=== PATIENT | male | born 1940 | race Caucasian/White ===

== ENCOUNTER 2022-03-19 09:31 | Day surgery (SDC) | payer MEDICARE, SELFPAY ==
--- NOTE | 2022-03-09 08:30 | EKG12_ITS ---
Test Reason : PRE OP Blood Pressure : / mmHG Vent. Rate : 067 BPM Atrial Rate : 067 BPM P-R Int : 192 ms QRS Dur : 086 ms QT Int : 406 ms P-R-T Axes : 079 -22 048 degrees QTc Int : 429 ms Normal sinus rhythm with sinus arrhythmia Nonspecific ST and T wave abnormality Abnormal ECG Confirmed by SHRUTI COSBY, RENETTA ([id number]), script editor JOÃO FELIX ([id number]) on 03/09/2022 2:17:12 PM Referred By: Clem Steen Confirmed By:HECTOR BAHENA MD
[2022-03-09 09:22] LABS: Hematocrit 46.7 % (40-54); Hemoglobin 15.8 g/dL (13.0-16.5); Mean Corp Hgb Conc 33.8 g/dL (32-36); Mean Corpuscular Volume 97.5 fL (80-94); Mean Platelet Vol. 10.9 fl (6.2-12.0); Platelet Count 188 K/mm3 (150-450); RBC Distribution Width CV 13.6 % (11.6-14.6); RBC Distribution Width SD 48.6 fl (35.1-43.9); Red Blood Count 4.79 M/mm3 (4.6-6.2); White Blood Count 7.3 K/mm3 (4.4-11.0)
[2022-03-09 09:43] LABS: Anion Gap 7 (5-15); BUN 20 mg/dL (7-18); BUN/Creat Ratio 15.4 RATIO (10-20); Calcium,Total 9.1 mg/dL (8.5-10.1); Chloride 109 mmol/L (98-107); EST Glomerular Filtration Rate 56 mL/min (>60); Est Glom Filt Rate - Afr Amer 68 mL/min (>60); Glucose 113 mg/dL (74-106); Potassium 3.5 mmol/L (3.5-5.1); Sodium Level 144 mmol/L (136-145)
[2022-03-19] VITALS (13 sets, daily range): BP systolic 134–188; BP diastolic 68–92; PULSE 61–91; RESP 16; TEMP 36.4–36.7; O2SAT 89–98; BMI 34.8
[2022-03-19] MEDS: Lactated Ringers 1,000 ML 15 ML IV ×2 (10:18→13:20)
[2022-03-19] MEDS: Cefazolin 2 GM in 0.9% Normal Saline 100 ML IV (11:27)
--- NOTE | 2022-03-19 11:27 | PCM.HP.BLA ---
History and Physical Date of Admission: 03/19/22 Intake Vital Signs ? 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 Clem Steen MD) Heart attack Surgical History?(Updated 01/31/22 @ 08:57 by Chanda Olvera) H/O heart artery stent S/P appendectomy S/P hip replacement Social History?(Updated 01/31/22 @ 08:58 by Chanda Olvera) Smoking Status:? Never smoker alcohol intake:? never substance use type:? does not use HPI HPI HPI: TAYLOR RAMIREZ, is a 81 M who presents to the office today for umbilical hernia.? The patient reports he has had this umbilical hernia for several years and it is growing and becoming more uncomfortable.? The patient does not have any nausea or vomiting.? There is no radiation of the pain.? No fevers or chills. ROS General General: No weight change, appetite, fatigue, colon cancer, breast cancer or weakness HEENT HEENT: No difficulty swallowing, eye injury, eye surgery, swollen glands or hoarseness Endo Endocrine: No thyroid disease, diabetes mellitus, thyroid cancer, Hair loss, heat intolerance or cold intolerance Skin Skin: No rash or changing moles Breast Breast: No left breast lump, right breast lump, nipple discharge, breast pain, abnormal mammogram, abnormal US or breast enlargement Musc Musculoskeletal: No back problems, arthritis, rheumatoid arthritis, gout or joint pain Cardio Cardiovascular: Yes heart disease, high blood pressure, heart attack and heart stent; No murmur, pacemaker, atrial fibrillation, palpitations, shortness of breat with exertion or chest pain Psych Psychiatric: No depression, anxiety or hearing voices Resp Respiratory: No shortness of breath, No sleep apnea, No cough, No COPD, No asthma, No emphysema and No wheezing Gastro Gastrointestinal: No abdominal pain, No nausea or vomiting, No diarrhea, No constipation, No blood in stool, No acid reflux, No hemorrhoids, No ulcers, No gallbladder problem and No black,tarry stools Jose Martin Hematologic: No blood thinners, No blood disorders, No bleeding, No anemia and No blood clots Neuro Neurologic: No system reviewed and no additional complaints, except as documented, No as per HPI, No abnormal gait, No abnormal hearing, No abnormal movements, No abnormal speech, No behavioral changes, No burning sensations, No confusion, No convulsions, No disequilibrium, No dizziness, No localized weakness, No frequent falls, No headache(s), No lack of coordination, No loss of vision, No memory loss, No numbness, No other visual disturbances, No radicular pain, No restless legs, No sensory deficit, No syncope, No tingling, No tremor(s), No weakness and No other Exam Const General: cooperative Orientation: alert and oriented x3 HENAZ Head: normal to inspection Neck Neck: normal visual inspection and full ROM Chest Chest palpation & inspection: normal inspection of the chest Resp Effort & Inspection: normal respiratory effort Auscultation: clear to auscultation bilaterally Cardio Rate: regular rate Rhythm: regular rhythm GI Inspection: non-distended Palpation: soft, hernia umbilical and nontender Skin General: no rashes or lesions noted Neuro General: patient alert and patient oriented x3 Extrem General: full ROM Psych Appearance: grossly normal Mental Status: mental status grossly normal Assessment and Plan Assessment and Plan (1) Umbilical hernia: ?Status:?Acute ?Plan: Patient has a [place] umbilical hernia.? I discussed open and laparoscopic repair with him in detail.? Patient opted for laparoscopic repair and I discussed robotic assisted laparoscopic umbilical hernia repair with mesh.? I discussed the procedure in detail as well as the risks including but not limited to bleeding, infection, injury to underlying organs, mesh placement, recurrence of hernia.? Patient understands the risks and postoperative course and is willing to proceed.? Patient will hold his blood thinner prior to the procedure. Clem Steen MD Pager: [facility] [address] [place] [address], [address] [place] [address] Office: I have re-examined the patient. There are no clinical changes since date of exam.
[2022-03-19] MEDS: Bupivacaine 0.25% 30 ML Vial (12:45)
--- NOTE | 2022-03-19 13:04 | OP.PCM_ITS ---
Report of Operation Date of Procedure: 03/19/22 Pre-Operative Diagnosis: Incarcerated umbilical hernia Post-Operative Diagnosis: Incarcerated umbilical hernia Surgery/Procedure Performed:: Robotic assisted laparoscopic incarcerated umbilical hernia repair with mesh Description of Procedure: Patient was brought back to the operating room and general anesthesia was induced. The abdomen was prepped and draped in usual sterile fashion. An area of the left upper quadrant was then incised and the fascia was grasped and elevated and Veress needle was placed into the abdomen. A drop test was performed. Next the abdomen was insufflated 15 mmHg and the Veress needle was removed and a port was placed. Camera was placed into the abdomen was inspected and there were no injuries from entry. Next under direct visualization an 8 mm port was placed in the lateral left abdomen as well as left lower quadrant. The robot was then docked. Jessica repair was attempted but the peritoneum was too thin and kept having defects. The peritoneum was reduced from the hernia defect and the hernia sac was fully reduced with the assistance of electrocautery scissors. Next the defect was closed with a running #1 strata fix suture. Next a 10 cm x [address] mesh was rolled and placed into the abdomen and sutured to the defect using V-Loc suture. 2-0V lock suture was then used to circumferentially suture the mesh to the anterior abdominal wall. After the mesh was circumferentially sutured to the abdominal wall the abdomen was inspected and there appeared to be no injury and good coverage of the hernia defect circumferentially. The abdomen was allowed to desufflate and the robot was undocked and the ports were removed. Next the skin incisions were injected with local anesthetic and closed with interrupted 4-0 Monocryl suture. Steri- Strips were applied. Bandages were applied. Cotton balls and dressing were placed over the umbilicus to keep pressure on the umbilical stalk. Patient was awoken and taken to PACU in stable condition. Grafts/Implants Used: 10 x [address] mesh Admit VTE Documentation VTE Mechan Device Prophylaxis: SCD's
--- NOTE | 2022-03-19 13:08 | DCINST_ITS ---
Discharge Instructions Procedure Hernia Diet Discharge Diet: Light diet - advance as tolerated Activity Discharge Activity: May Not Drive (for 2-3 days or while taking narcotic pain meds.) and May Shower (with the bandage in place 1-2 days after surgery.) Lifting Restrictions: 20 pounds for 4 weeks. Additional Activity Instructions:: Climbing stairs is fine, walking is encouraged. Sitting in bed may be uncomfortable. Sitting up using your lateral muscles (sitting up sideways) is usually more comfortable. Do not drive, work heavy equipment of sign legal documents for 24 hours. Pain medications may cause nausea, you should typically eat light foods as you take your pain medications. Pain medications may also cause constipation. If you have difficulty with this, discuss with your doctor. Umbilical dressing is in place to keep pressure on the umbilicus. There is no incision there and it may be removed in 2 to 3 days. Dressing / Incision Call your doctor if your incision/area has: Continuous Slow Oozing, Sudden Increased Bleeding, Increased Pain/ Swelling, Increased Redness and Foul Smelling Discharge Call your doctor if you observe: Fever of 101 or Higher Suture Line Care: Avoid Pulling/Pushing and Avoid Pinching/Bending Remove Dressing in: 2 days (Remove clear bandages in 2 days, remove Steri-Strips in 7 to 10 days.) Cleanse incision/area with: Soap & Water Follow Up Care Please Follow Up With: Clem Steen MD When: Please call to schedule 2 week follow up appointment. [phone] Test Results: Test results from this visit will be discussed in further detail at your follow- up appointment, if applicable. Discharge Plan Admission Attending Provider: Clem Steen Primary Care Provider: JEANETH OFX Consulting Providers: Chino Macias Instructions Additional Instructions / Restrictions: Resume aspirin tomorrow Discharge Orders/Prescriptions Prescriptions: New oxycodone-acetaminophen [Percocet] 5-325 mg tablet 1 tab PO Q4H PRN (Reason: pain) 5 Days Qty: 20 0RF No Action atorvastatin 20 mg tablet 20 mg PO DAILY lisinopril 10 mg tablet 10 mg PO DAILY allopurinol 100 mg tablet 100 mg PO DAILY PreserVision AREDS [id number] capsule 1 cap PO BID aspirin [Adult Aspirin Regimen] 81 mg tablet,delayed release (DR/EC) 81 mg PO DAILY probenecid-colchicine 500-0.5 mg tablet 1 tab PO BID Referrals / Follow Up: JEANETH FOX [Other] Disposition Disposition (needs filled in before D/C Order can be placed): Home, Self Care
== END 2022-03-19 16:19 | disposition home or self-care (01) ==
LOC: SDC 09:35 → AC 09:39
PROVIDERS: Anesthesiology; Referring Provider Surgery; Visit Provider Surgery
PROC: (CPT 49653; principal; 2022-03-19 11:15)
DX: K42.0 Umbilical hernia with obstruction, without gangrene (principal); I25.2 Old myocardial infarction; Z95.5 Presence of coronary angioplasty implant and graft; Z79.899 Other long term (current) drug therapy; E78.00 Pure hypercholesterolemia, unspecified; I10 Essential (primary) hypertension; M10.9 Gout, unspecified
CPT/HCPCS: 49653; S2900; 00750; 36415; 80048; 85027; 93005; J7120; C1781; J2405

== ENCOUNTER → 2022-11-21 | Outpatient (CLI) | payer MEDICARE, SELFPAY ==
--- NOTE | 2022-11-21 17:47 | STRESSREP_ITS ---
Stress Test Report Pharmacologic myocardial perfusion stress test. 82-year-old man with a history of coronary artery disease Resting EKG demonstrates sinus rhythm with a rate of 70 bpm. Resting blood pressure 122/78. 0.4 mg of regadenoson was infused per usual protocol followed by rapid intravenous saline flush injection. Continuous EKG monitoring was per formed. The maximum heart rate was 71 bpm which was 58% of max impacted heart rate the maximum workload was 1 metabolic equivalent. At rest there were no ST or T wave changes noted to suggest ischemia and at peak infusion nonspecific ST changes were noted which did not meet the criteria for ischemia. No clinical angina is noted. The final blood pressure was 124/78 mmHg. Myocardial perfusion protocol. 14.8 mCi of technetium 99m sestamibi was injected at rest. 0.4 mg of regadenoson was infused per usual protocol. At peak infusion 44.8 mCi of technetium 99m sestamibi was injected stress images were obtained stress and rest images were reconstructed and compared in the short axis vertical long and horizontal long axis. Gated images were also obtained. Perfusion SPECT analysis: Review of the stress images demonstrate normal uptake of tracer noted in all areas of the myocardium except for the inferior wall with a defect noted from the base to the apex. The resting images similar demonstrated a persistent defect noted in the base of the inferior wall but in the mid to apical region there was improvement suggesting inferior ischemia in this distribution. Gated SPECT analysis: The gated ejection fraction is 57%. Conclusion: Abnormal pharmacologic myocardial perfusion stress test. Basal inferior infarct and mid and apical inferior ischemia Preserved ejection fraction.
== END | disposition home or self-care (01) ==
PROVIDERS: Referring Provider Nurse Practitioner Gerontology; Visit Provider Nurse Practitioner Gerontology
DX: I25.10 Atherosclerotic heart disease of native coronary artery without angina pectoris (principal); Z95.5 Presence of coronary angioplasty implant and graft
CPT/HCPCS: 78452; 93017; A9500; J2785

== ENCOUNTER 2022-12-10 06:36 | Day surgery (SDC) | payer MEDICARE, SELFPAY ==
--- NOTE | 2022-11-28 14:16 | PCM.HP.BLA ---
History and Physical Date of Admission: 12/10/22 This is an 82-year-old white male who presents today for a cardiac catheterization. He has a past cardiovascular history which includes underlying CAD, and MT, PCI (details unknown), hyperlipidemia, hypertension, and macular degeneration.? He has previously been followed through [facility]. 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 He had a previous ECG obtained from 02-03-2016.? At that time he had sinus rhythm with PACs and an inferior MT pattern reported. He had a repeat ECG on 03/29/2022 that demonstrated sinus rhythm with an inferior MT pattern of indeterminate age cannot be excluded. He had a transthoracic echocardiogram performed on 02-02-2016 through his hospital system through the [facility].? According to the report his left ventricle was thought to have a normal systolic function with an LVEF reported at 51% with mild concentric LVH.? The left atrium was mildly dilated.? There was trace MR.? There was trace TR. It appears that he also underwent a pharmacologic stress nuclear imaging study on 10-27-2015 through hospital system.? According to the report he had findings compatible with mild inferior wall darren-infarct myocardial ischemia with a moderate myocardial infarction by perfusion imaging with an LVEF of 40%.? There was a comment that compared to a previous exercise myocardial perfusion stress test of May 14, 2008 there was no significant change. 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 According to a preoperative note from 11-01-2015 there was a comment that his myocardial perfusion studies showed no change compared to a previous study done approximately 3 years prior.? At that time they recommended no further evaluation and care.? He proceeded with hip replacement surgery.? He states he went through surgery without any obvious cardiovascular complications. From a cardiac standpoint, the patient is doing well. He denies any palpitations, chest pain, pressure or heaviness. He denies SOB, Orthopnea, and PND. He does not have bleeding issues; no blood in urine, stool or nosebleeds. He denies any decrease in energy level, myalgias, or claudication.? He does have an occasional joint pain/arthritis. He does not have edema, or sudden weight gain. He denies dizziness, lightheadedness, syncopal or near syncopal episodes, and headaches. Intake Vital Signs See EMR Allergies See EMR Medications See EMR [facility] Medical History?(Reviewed 10/22/22 @ 09:07 by Kamla Albarado MORTGAGE FIELD INSPECTOR, MORTGAGE FIELD INSPECTOR-C) Arthritis Atherosclerotic heart disease of [place] coronary artery without angina pectoris Cardiology follow-up encounter Essential hypertension Gout Heart attack High cholesterol History of left heart catheterization (LHC) (~2000) History of stress test Hypertension Hypertension Injury of head and neck Legally blind Non-smoker Old myocardial infarction Pure hypercholesterolemia Surgical History?(Reviewed 10/22/22 @ 09:07 by Kamla Albarado MORTGAGE FIELD INSPECTOR, MORTGAGE FIELD INSPECTOR-C) H/O heart artery stent History of cardiac catheterization Hx of umbilical hernia repair S/P appendectomy S/P hip replacement Social History? Smoking Status:? Never smoker alcohol intake:? never substance use type:? does not use caffeine:? Yes Type: coffee Number of servings: 2 and tea ROS Const Const: Negative for fatigue, weakness, fever(s), headache(s), chills, frequent falls, weight gain or weight loss Eyes Eyes: Negative for blind spots, loss of peripheral vision, transient loss of vision, blurry vision, change in vision, double vision, floaters or tunnel vision ENT ENT: Negative for headache(s), dizziness, Nosebleed/epistaxis, balance problems or neck pain Cardio Chest Pain: No Palpitations: No Edema: None Muscle aches with walking: None Resp Respiratory: Negative for SOB with activity, SOB at rest or SOB orthopnea\SOB lying down GI GI: Negative nausea, vomiting, heartburn, bloating, vomiting blood/hematemesis, bright, red blood in stools or black,tarry stools Musc Musc: Positive for joint pain; Negative for muscle aches/ myalgia, muscle weakness or balance problems Neuro Neuro: Negative for dizziness, lightheadedness, near syncope, syncope, orthostatic symptoms, frequent falls, headache(s), weakness, blurry vision or double vision Jose Martin Hematologic/Lymphatic: Negative for easy bleeding or easy bruising Endo Endo: Negative for fatigue Cardiology Exam Const Appearance: cooperative, healthy appearing, comfortable, no acute distress, well developed and well groomed Nutritional Appearance: obese Orientation: alert, awake and oriented x3 Head Head: normal to inspection, normocephalic and atraumatic Ears: hearing grossly normal bilaterally Nose: external nose normal Face and Sinus: face symmetric Eyes Eyelids: eyelids normal Conjunctivae: conjunctivae normal Pupils: PERRL EOM: EOM intact bilaterally Patient is legally blind due to macular degeneration Neck Neck: normal visual inspection and full ROM Carotids: normal carotid upstroke Chest Chest inspection: normal inspection of the chest, symmetric chest movement and normal respiratory effort Auscultation: Bilateral: Clear to Auscultation Cardio Palpation: normal PMI Rate: regular rate Rhythm: regular rhythm Heart sounds: S1 normal and S2 normal GI GI: normal to inspection, soft and obese Skin Skin: no rashes or lesions noted Extremities Pulses: Normal: Right Radial Pulse and Left Radial Pulse Lower Extremity Edema: None: Bilateral Psych Psychological: normal affect Supplemental Info Supplemental Information Stress test 11/21/2022: Pharmacologic myocardial perfusion stress test. 82-year-old man with a history of coronary artery disease Resting EKG demonstrates sinus rhythm with a rate of 70 bpm. Resting blood pressure 122/78. 0.4 mg of regadenoson was infused per usual protocol followed by rapid intravenous saline flush injection. Continuous EKG monitoring was performed. The maximum heart rate was 71 bpm which was 58% of max impacted heart rate the maximum workload was 1 metabolic equivalent. At rest there were no ST or T wave changes noted to suggest ischemia and at peak infusion nonspecific ST changes were noted which did not meet the criteria for ischemia. No clinical angina is noted. The final blood pressure was 124/78 mmHg. Myocardial perfusion protocol. 14.8 mCi of technetium 99m sestamibi was injected at rest. 0.4 mg of regadenoson was infused per usual protocol. At peak infusion 44.8 mCi of technetium 99m sestamibi was injected stress images were obtained stress and rest images were reconstructed and compared in the short axis vertical long and horizontal long axis. Gated images were also obtained. Perfusion SPECT analysis: Review of the stress images demonstrate normal uptake of tracer noted in all areas of the myocardium except for the inferior wall with a defect noted from the base to the apex. The resting images similar demonstrated a persistent defect noted in the base of the inferior wall but in the mid to apical region there was improvement suggesting inferior ischemia in this distribution. Gated SPECT analysis: The gated ejection fraction is 57%. Conclusion: Abnormal pharmacologic myocardial perfusion stress test. Basal inferior infarct and mid and apical inferior ischemia Preserved ejection fraction. Assessment and Plan Assessment and Plan (1) H/O heart artery stent: ?Status:?Acute ?Comment: X5 ?Plan: Patient has a history of coronary artery disease with stent placement in 2000. He underwent a stress test on 11/21/2022 which demonstrated an abnormal pharmacologic myocardial perfusion stress test, with basal inferior infarct and mid and apical inferior ischemia. He will proceed with a cardiac catheterization to further assess this. Depending on results, furhter recommendations will be made. (2) Pure hypercholesterolemia: ?Status:?Acute ?Plan: Patient has a history of hypercholesterolemia. His PCP monitors this. He will continue atorvastatin 20mg daily, along with aggressive risk factor and lifestyle modifications. (3) Essential hypertension: ?Status:?Acute ?Plan: Patient has a history of hypertension. He will continue with his current medical therapy, along with monitoring his blood pressures at home.
--- NOTE | 2022-11-30 12:30 | RAD_ITS ---
STUDY: X-RAY CHEST REASON FOR EXAM: Male, 82 years old. Preop for cardiac catheterization TECHNIQUE: PA and lateral views of the chest. COMPARISON: None. FINDINGS: The lungs are clear and expanded. There is no demonstrated pleural abnormality. Normal size heart. Normal mediastinum and wendi. Normal visualized pulmonary arteries. Normal visualized aortic arch and descending thoracic aorta. There are diffuse degenerative changes of the visualized thoracic spine. Normal visualized ribs, clavicles, and shoulders. There is no demonstrated abnormality of the visualized soft tissue structures of the upper abdomen. RAD/Chest PA and Lateral IMPRESSION: No acute pulmonary process Electronically Signed: Jermain Ellison MD at 10:50 EDT ,
[2022-11-30 13:23] LABS: Absolute Lymphocyte Count 1.57 X10^3/uL (0.83-4.51); Absolute Neutrophil Count 5.6 X10^3/uL (2.0-7.7); Basophil# 0.03 X10^3/uL; Basophil% 0.4 % (0-1); Eosinophil# 0.14 X10^3/uL; Eosinophils% 1.7 % (0-5); Hematocrit 51.2 % (40-54); Hemoglobin 17.4 g/dL (13.0-16.5); Lymphocyte # 1.57 X10^3/ul (0.83-4.51); Lymphocyte % 19.3 % (19-41); Mean Corpuscular Volume 97.2 fL (80-94); Mean Platelet Vol. 10.2 fl (6.2-12.0); Monocyte# 0.73 X10^3/uL; NRBC Flagged by Analyzer 0 % (0-5); Neutrophil # 5.62 X10^3/uL (2.7-7.7); Neutrophil % 69.2 % (47-70); Platelet Count 217 K/mm3 (150-450); RBC Distribution Width CV 13.5 % (11.6-14.6); RBC Distribution Width SD 48.7 fl (35.1-43.9); Red Blood Count 5.27 M/mm3 (4.6-6.2); White Blood Count 8.1 K/mm3 (4.4-11.0)
[2022-11-30 14:02] LABS: Anion Gap 9 (5-15); BUN 16 mg/dL (7-18); Calcium,Total 9.4 mg/dL (8.5-10.1); Chloride 108 mmol/L (98-107); Creatinine, Serum 1.33 mg/dL (0.70-1.30); EST Glomerular Filtration Rate 55 mL/min (>60); Est Glom Filt Rate - Afr Amer 66 mL/min (>60); Glucose 110 mg/dL (74-106); Potassium 4.1 mmol/L (3.5-5.1); Sodium Level 143 mmol/L (136-145)
[2022-12-07 09:27] VITALS: BMI 37.0
--- NOTE | 2022-12-10 08:24 | CL.D_ITS ---
Patient Name: TAYLOR RAMIREZ Study Date: 12/10/2022 Performing: Parminder Perez MD Ht: 64 inches 162.56 cm : 1940 Wt: 216.01 lbs 97.98 kg Age: 82 Gender: male BSA: 2.02 PROCEDURE(S) PERFORMED [id number])[facility] CLINICAL PROFILE AND INDICATIONS Indications: Suspected CAD Heart Failure: None Stress/Imaging Date: 11/21/22Stress Test with SPECT MPI: Positive Intermediate Risk CAD Presentations: No Sxs, no angina. CONCLUSIONS Coronary artery disease previously placed stent in the LAD is patent with mild disease noted in this vessel, left circumflex artery, and ramus intermedius. Totally occluded right coronary artery with [id number] collaterals. RECOMMENDATIONS Medical therapy. Assess left ventricular function via echocardiogram. DESCRIPTION OF PROCEDURE The patient arrived to the procedure lab. The risks and benefits of the procedure as well as a full description of our services here and current unavailability of surgical backup were fully explained to the patient and/or their significant other prior to the catheterization. The Timeout was completed, verifying the correct patient and procedure. The patient's procedural site was prepped and draped in the usual fashion. Local anesthetic was given subcutaneously to right radial region with Lidocaine 2%. Using a modified Seldinger technique, arterial access was obtained via the right radial artery, a 6Fr sheath was inserted. Left Coronary Artery selective angiography was performed in multiple views using a 5 Fr. 4.0 Ada catheter. Right Coronary Artery selective angiography was then performed in multiple views using a 5 Fr. 4.0 Ada catheter.The arterial sheath was pulled and a TR Band was applied for hemostasis CORONARY ANGIOGRAPHY DOMINANCE: Right Dominant LEFT HEART ASSESSMENT Left Ventricular Ejection Fraction: Not assessed LEFT MAIN: Mild calcification, No significant disease noted LEFT ANTERIOR DESCENDING ARTERY: Previously placed stent is patent with minimal in-stent stenosis. First diagonal with mild disease and mild diffuse disease in the left anterior descending artery. CIRCUMFLEX ARTERY: Moderate luminal irregularities up to 50% RAMUS: Moderate luminal irregularities up to 50% RIGHT CORONARY ARTERY: is occluded COLLATERAL FLOW: Collateral flow from Left to Right COMPLICATIONS No Complications PROCEDURE MEDICATIONS Fentanyl 50 mcg IV Versed 1 mg IV Baby Aspirin (81mg) 1 Tabs PO @ 12/10/2022 07:40:11 Heparin given IA 12/10/2022 08:00:47 Verapamil 2.5mg, Ntg 100mcgs, 3000 units of Heparin given IA 12/10/2022 08:00:47 SUMMARY OF HEMODYNAMIC DATA Time AIR REST ECG 07:04:58 ECG 07:49:23 AO 103/60 (79) SA 08:05:04 Signed By Parminder Perez MD On 12/10/2022 08:23:38 Parminder Perez MD
== END 2022-12-10 10:20 | disposition home or self-care (01) ==
LOC: CLSP 06:39
PROVIDERS: Nurse Practitioner Gerontology; Referring Provider Internal Medicine Cardiovascular Disease; Visit Provider Internal Medicine Cardiovascular Disease
DX: I25.10 Atherosclerotic heart disease of native coronary artery without angina pectoris (principal); I10 Essential (primary) hypertension; E78.00 Pure hypercholesterolemia, unspecified; Z95.5 Presence of coronary angioplasty implant and graft; I25.2 Old myocardial infarction
CPT/HCPCS: 36415; 71046; 80048; 85025; 93454; 99152; 99153; J7040; C1769; C1894; Q9967

== ENCOUNTER → 2022-12-19 | Outpatient (CLI) | payer MEDICARE, SELFPAY ==
--- NOTE | 2022-12-19 14:00 | ECHOD_ITS ---
Reason For Study: CAD/ASHD Procedure This was a 2D Doppler, Color Flow transthoracic echocardiogram. Exam performed in department. Left Ventricle Normal LV size. Left ventricular systolic function is lower limits of normal. The estimated ejection fraction is 50 %. Mild segmental systolic dysfunction (see wall motion). Stage 1 diastolic dysfunction. Mid-Inferior: Hypokinetic. Infero-Basal: Akinetic. Right Ventricle Normal RV size. Normal systolic function. Atria Normal left atrium. Normal right atrium. Mitral Valve Normal mitral valve. Tricuspid Valve Normal tricuspid valve. Aortic Valve Trisinus/trileaflet aortic valve. Pulmonic Valve The pulmonic valve is not well visualized. Great Vessels Normal aortic root. The pulmonary artery is normal size. Inferior vena cava collapse with respiration. Pericardium/Pleural No pericardial effusion. MMode/2D Measurements & Calculations LVIDd: 5.3 cm IVSd: 1.2 cm Ao root diam: 3.9 cm LVIDs: 3.9 cm LVPWd: 1.1 cm FS: 27.5 % LAV(MOD-bp): 49.3 ml LVAd ap4: 25.2 cm2 SV(MOD-sp4): 43.7 ml LAV(MOD-bp) Indexed: 24.5 ml/m2 LVLd ap4: 7.3 cm LAV(MOD-sp2): 60.1 ml EDV(MOD-sp4): 73.0 ml LAV(MOD-sp4): 38.1 ml EDV(sp4-el): 73.9 ml LVAs ap4: 14.0 cm2 LVLs ap4: 6.4 cm ESV(MOD-sp4): 29.3 ml ESV(sp4-el): 26.1 ml EF(MOD-sp4): 59.9 % EF(sp4-el): 64.7 % SV(sp4-el): 47.8 ml LA A4 area: 15.7 cm2 LA dimension(2D): 3.7 cm RA A4 area: 12.5 cm2 Time Measurements MV dec time: 0.29 sec Doppler Measurements & Calculations MV E max yinka: 38.8 cm/sec Lat Peak E' Yinka: 6.2 cm/sec Med Peak E' Yinka: 3.0 cm/sec MV A max yinka: 76.9 cm/sec E/E' lat: 6.3 E/E' med: 13.0 MV E/A: 0.50 MV V2 max: 72.9 cm/sec Ao V2 max: 104.7 cm/sec MV max P.1 mmHg MV dec slope: 138.1 cm/sec2 Ao max P.4 mmHg MV V2 mean: 38.9 cm/sec Ao V2 mean: 73.3 cm/sec MV mean P.71 mmHg Ao mean P.5 mmHg MV V2 VTI: 17.9 cm Ao V2 VTI: 23.2 cm AV (velocity ratio): 0.72 LV V1 max: 81.0 cm/sec PA V2 max: 107.9 cm/sec LV V1 max P.6 mmHg PA V2 mean: 67.9 cm/sec LV V1 mean P.4 mmHg LV V1 mean: 56.4 cm/sec LV V1 VTI: 16.8 cm ECHO/Echo Complete Interpretation Summary Normal LV size. Left ventricular systolic function is lower limits of normal. The estimated ejection fraction is 50 %. Mild segmental systolic dysfunction (see wall motion). Stage 1 diastolic dysfunction. Ordering Physician: Parminder Perez Referring Physician: Parminder Perez Performed By: Indigo Moreno RCS
== END | disposition home or self-care (01) ==
LOC: CVS 13:58
PROVIDERS: Referring Provider Internal Medicine Cardiovascular Disease; Visit Provider Internal Medicine Cardiovascular Disease
DX: R94.39 Abnormal result of other cardiovascular function study (principal); I25.10 Atherosclerotic heart disease of native coronary artery without angina pectoris
CPT/HCPCS: 93306

== ENCOUNTER → 2024-10-01 | Outpatient (CLI) | payer MEDICARE, SELFPAY ==
[2024-10-01 16:15] LABS: Absolute Lymphocyte Count 2.07 X10^3/uL (0.83-4.51); Basophil# 0.06 X10^3/uL; Basophil% 0.5 % (0-1); Eosinophil# 0.16 X10^3/uL; Eosinophils% 1.4 % (0-5); Hematocrit 47.1 % (40-54); Hemoglobin 16.7 g/dL (13.0-16.5); Lymphocyte # 2.07 X10^3/ul (0.83-4.51); Lymphocyte % 18.1 % (19-41); Mean Corp Hgb Conc 35.5 g/dL (32-36); Mean Corpuscular Hgb 33.4 pg (27.0-32.0); Mean Corpuscular Volume 94.2 fL (80-94); Mean Platelet Vol. 10.2 fl (6.2-12.0); Monocyte# 1.06 X10^3/uL; Monocyte% 9.3 % (0-10); NRBC Flagged by Analyzer 0 % (0-5); Neutrophil # 7.98 X10^3/uL (2.7-7.7); Neutrophil % 69.9 % (47-70); Platelet Count 243 K/mm3 (150-450); RBC Distribution Width CV 13.4 % (11.6-14.6); RBC Distribution Width SD 46.6 fl (35.1-43.9); White Blood Count 11.4 K/mm3 (4.4-11.0)
[2024-10-01 20:05] LABS: Anion Gap 15 (5-15); BUN 16 mg/dL (4-19); Calcium,Total 9.3 mg/dL (7.6-11.0); Carbon Dioxide 22.5 mmol/L (21.0-32.0); Chloride 106 mmol/L (98-108); Creatinine, Serum 1.25 mg/dL (0.70-1.20); EST Glomerular Filtration Rate 57 (>60); Glucose 98 mg/dL (70-99); Potassium 3.6 mmol/L (3.3-5.1); Sodium Level 143 mmol/L (133-145)
== END | disposition home or self-care (01) ==
LOC: LAB 15:49
PROVIDERS: Referring Provider Internal Medicine Cardiovascular Disease; Visit Provider Internal Medicine Cardiovascular Disease
DX: I25.10 Atherosclerotic heart disease of native coronary artery without angina pectoris (principal); I10 Essential (primary) hypertension; Z95.5 Presence of coronary angioplasty implant and graft
CPT/HCPCS: 36415; 80048; 85025

== ENCOUNTER → 2025-02-24 | Outpatient (CLI) | payer MEDICARE, SELFPAY ==
--- OUTSIDE RECORDS SUMMARY | 2025-02-24 06:43 | XMS RPT_ITS | CCD ---
Author Organization [facility] CliniSynj Care Team Providers Care Powder Core Tester Name Role Phone Ham Soria Unavailable Unavailable Ham Soria Unavailable Unavailable No Doctor Assigned, Nodr Unavailable Unavail able Monica Buckner Primary Care Provider Kaitlynnsdtheron seymour [place], [place] Unavailable Unavailable Unavailable Joshua COSBY [place] Primary Care Provider [phone] ZAK BUNN Referring Unavailable [place], [place] Primary Care Unavailable [place] Primary Care Unavailable ZAK BUNN Admitting Unavailable ZAK BUNN Attending Unavailable Joshua COSBY [facility] Primary Care Provider Dr. Clem Steen Attending Provider [phone] Dr. Ankit Kinney Attending Provider [place], [place] Primary Care Provider Unavailesther batista [place] Referring Provider Unavailable Dr. Clem Steen Referring Provider [phone] Dr. Clem Steen Other Provider Dr. Chino Macias Other Provider [place] Primary Care Provider [facility] Doctor, Out of Primary Care Provider Marvin seyomur [facility] Doctor, Out of Referring Provider Unavailab Morales CONTINUOUS DRIER HELPER, CONTINUOUS DRIER HELPER-C Kamla Attending Provider Per CONTINUOUS DRIER HELPER, CONTINUOUS DRIER HELPER-C Kamla Referring Provider Per CONTINUOUS DRIER HELPER, CONTINUOUS DRIER HELPER-C Kamla Other Provider [phone] [place], [place] Primary Care Provider Dr. Parminder Perez Attending Provider Dr. Parminder Perez Other Provider [place], [place] Primary Care Unavailable DEANNA MEJIAS Referring UnavailJEANETH Mcintosh Primary Care Unavailable DEANNA MEJIAS Referring Unavailab Wendy COSBY, Jeaneth Javier Primary Care Provider Deanna Mejias NP Unavailable Joshua COSBY Jeaneth Javier Unavailable Joshua COSBY Jeaneth Primary Care Provider [facility] Doctor, Out of Primary Care Provider Marvin seymour [facility] Doctor, Out of Referring Provider Unavailab Nolan COSBY, Dr. Zurita Attending Provider JEANETH LEWIS Primary Care Provider Dr. Parminder Perez MD Referring Provider [phone] JEANETH LEWIS Attending Unavailable DEANNA MEJIAS Attending Unavailable DEANNA MEJIAS Attending Unavailable Frankie Cr MD Attending Provider Frankie Cr Attending [facility] Unavailable Parminder Perez Attending Unavailable Parminder Perez Referring Unavailable Frankie Cr Referring [place], [place] Primary Care Unavailable Frankie Cr Attending Unavailable [facility] Doctor, Out of Primary Care Unavailable [facility] Doctor, Out of Referring Unavailable Parminder Perez Attending Unavailable Allergies Allergy Classification Reported Allergen(s) Allergy Type Date of Onset Reaction(s) Facility POISON RAJ EXTRACT (2 sources) POISON RAJ EXTRACT Drug Allergy 1 Hives, Itching, Swelling [facility] (1 source) No Known Medication Allergies; Translations: [No Known Medication Allergies] Propensity to adverse reactions to drug (disorder) [facility] (9 sources) POISON RAJ EXTRACT Drug Allergy 1 Hives, Itching, Swelling [facility] Medications Current Medications Medication Drug Class(es) Dates Sig (Normalized) Sig (Original) Acetaminophen / HYDROcodone (9 sources) Opioid Agonist Start: 01-03-2021 End: 01-03-2021 HYDROcodone-acetam inophen (NORCO) 5-325 MG per tablet 1 tablet Start: 01-02-2021 HYDROcodone-ac etaminophen (NORCO) 5-325 MG per tablet Take by mouth. 0 01/02/2021 Active Start: 01-02-2021 take 1 tablet by bethel th every six hours HYDROcodone-Acetaminophen 5-325 MG Oral Tablet TAKE 1 TABLET Every 6 hours PRN pain Quantity: 20 Refills: 0 Ordered: 02-Jan-2021 Sylvia Campa PA-C Start : 02-Jan-2021 Active aspirin 81 mg delayed release oral tablet (17 sources) Platelet Aggregation Inhibitor, Nonsteroidal Anti-inflammatory Drug Start: 01-31-2022 take 1 tablet by mouth once daily Aspirin (Adult Aspirin Regimen) 81 mg tablet,delayed release (DR/EC) Active 81 mg PO DAILY January 31, 2022 12:00am Start: 11-10-2015 End: 02-07-2022 take 1 tablet by mouth twice daily aspirin, enteric coated (ASPIRIN, ENTERIC COATED) 325 mg EC tablet Take 1 tablet by mouth twice daily. 82 tablet 0 11/10/2015 02/07/2022 Discontinued Comment on above: Take 81 mg by mouth once daily. Take 1 tablet by bethel th twice daily. atorvastatin 20 mg oral tablet (18 sources) HMG-CoA Reductase Inhibitor Start: 2 take 1 tablet by mouth once daily Atorvastatin 20 mg tablet Active 20 mg PO DAILY January 31, 2022 12:00am Comment on above: Take 20 mg by mouth once daily. benoxinate hydrochloride 4 mg/ml / fluorescein sodium 2.5 mg/ml ophthalmic solution (2 sources) Diagnostic Dye Start: 2 End: 2 fluorescein-benoxina te 0.25-0.4 % 1 Drop (FLURESS) calcium chloride 0.0014 meq/ml / potassium chloride 0.004 meq/ml / sodium chloride 0.103 meq/ml / sodium lactate 0.028 meq/ml injectable solution (1 source) Start: 1 lactated ringers infusion colchicine 0.5 mg / probenecid 500 mg oral tablet (16 sources) Start: 2 End: 4 Probenecid-Colchicin e 500-0.5 mg tablet Active 1 {tbl} PO TWICE A DAY as needed January 06, 2024 9:11am Start: 03-09-2022 take 1 tablet by bethel th twice daily Probenecid-Colchicine Active 1 TABLET PO TWICE A DAY March 09, 2022 2:55pm Start: 01-31-2022 End: 03-09-2022 Probenecid-Colchicine 500-0. 5 mg tablet Discontinued 1 {tbl} PO DAILY January 31, 2022 12:00am March 09, 2022 2:55pm Start: 01-31-2022 End: 03-09-2022 take 1 tablet by mouth once daily Probenecid-Colchicine Discontinued 1 TABLET PO DAILY January 31, 2022 12:00am March 09, 2022 2:55pm 1 ml diphenhydrAMINE hydrochloride 50 mg/ml cartridge (1 source) Histamine-1 Receptor Antagonist Start: 01-03-2021 End: 01-03-2021 12.5 mg, Intravenous, ONCE PRN, Itching, Starting on Sat01/03/21 at 1205, For 1 dose, PACU only 2 ml fentaNYL 0.05 mg/ml injection (1 source) Opioid Agonist Start: 01-03-2021 25 mcg, Intravenous, EVERY 10 MIN PRN, Pain Moderate (4-6), Starting on Sat01/03/21 at 1205, For 4 doses Phase I - Initial therapy for moderate pain. PACU only hydroCHLOROthiazide 12.5 mg / lisinopril 10 mg oral tablet (4 sources) Thiazide Diuretic, Angiotensin Converting Enzyme Inhibitor Start: 01-27-2024 take 1 tablet by mouth once daily lisinopril-hydro CHLOROthiazide 10-12.5 MG tablet Indications: Essential hypertension (CMS/HCC) Take 1 tablet by mouth Daily 90 tablet 3 01/27/2024 Active ketorolac tromethamine 10 mg oral tablet (3 sources) Nonsteroidal Anti-inflammatory Drug, Cyclooxygenase Inhibitor Start: 02-24-2021 take 1 tablet by mouth every six hours as needed for pain ketorolac (TORADOL) 10 MG tablet Take 1 tablet by mouth every 6 hours as needed for Pain 20 tablet 0 02/24/2021 Active lisinopril 10 mg oral tablet (12 sources) Angiotensin Converting Enzyme Inhibitor Start: 01-31-2022 take 1 tablet by mouth once daily Lisinopril 10 mg tablet Active 10 mg PO DAILY January 31, 2022 12:00am Comment on above: Take 10 mg by mouth once daily. 1 ml meperidine hydrochloride 25 mg/ml cartridge (1 source) Opioid Agonist Start: 01-03-2021 12.5 mg, Intravenous, EVERY 5 MIN PRN, Shivering, , Starting on Sat01/03/21 at 1205 May give every 5 minutes to max of 50mg. PACU only 2 ml metoclopramide 5 mg/ml prefilled syringe (1 source) Dopamine-2 Receptor Antagonist Start: 01-03-2021 End: 01-03-2021 10 mg, Intravenous, ONCE PRN, Nausea, Starting on Sat01/03/21 at 1205, For 1 dose Secondary antiemetic therapy if not given intraoperatively . PACU only morphine (PF) injection 2 mg (1 source) Start: 01-03-2021 morphine (PF) injection 2 mg Multiple Vitamins-Minerals (PRESERVISION AREDS 2 PO) (5 sources) Multiple Vitamins-Mineral s (PRESERVISION AREDS 2 PO) Take by mouth 2 times daily 0 Active Multiple Vitamin s-Minerals (PRESERVISION AREDS 2 PO) Take by mouth 2 times daily 0 Suspended 2 ml ondansetron 2 mg/ml injection (1 source) Serotonin-3 Receptor Antagonist Start: 01-03-2021 End: 01-03-2021 4 mg, Intravenous, ONCE PRN, Nausea, Starting on Sat01/03/21 at 1205, For 1 dose Initial antiemetic therapy. PACU only oxyCODONE hydrochloride 5 mg oral tablet (1 source) Opioid Agonist Start: 01-03-2021 take 5 mg by mouth every four hours as needed for pain 5 mg, Oral, EVERY 4 HOURS PRN, Pain Severe (7-10), Starting on Sat01/03/21 at 1330, Post-op phenylephrine hydrochloride 25 mg/ml ophthalmic solution (2 sources) alpha-1 Adrenergic Agonist Start: 02-07-2022 End: 02-08-2022 PHENYLephrine 2.5 % 1 Drop (AK-DILATE, SIXTO-SYNEPHRINE) predniSONE 10 mg oral tablet (1 source) Start: 02-24-2021 End: 03-01-2021 take 6 tablets by mouth once daily predniSONE (DELTASONE) 10 MG tablet Take 6 tablets by mouth daily for 5 doses 30 tablet 0 02/24/2021 03/01/2021 Active 3 ml sodium chloride 9 mg/ml injection (4 sources) Start: 01-03-2021 10 mL, Intravenous, EVERY 12 HOURS SCHEDULED (2 times per day), First dose on Sat01/03/21 at 2100, Post-op Start: 01-03-2021 End: 01-03-2021 take 50 mL intravenously every hour 50 mL/hr, Intravenous, at 50 mL/hr, CONTINUOUS, Starting on Sat01/03/21 at 1400, For 1 hour D/c IV fluids when taking po fluids Post-op Start: 01-03-2021 take 25 mL intraveno usly every hour as needed 25 mL, Intravenous, at 100 mL/hr, PRN, If patient receiving piggyback infusions without ordered maintenance IV fluids or with frequent/long duration piggyback infusions, Starting on Sat01/03/21 at 1330 Administer at the same rate as the piggyback being infused. Post-op Start: 01-03-2021 take 10 mL intravenously once 10 mL, Intravenous, PRN, Line Care, Starting on Sat01/03/21 at 1330 After every IV line use Post-op sulfamethoxazole 800 mg / trimethoprim 160 mg oral tablet (10 sources) Dihydrofolate Reductase Inhibitor Antibacterial, Sulfonamide Antimicrobial Start: 02-24-2021 take 1 tablet by mouth twice daily sulfamethoxazole-trimethoprim (BACTRIM DS;SEPTRA DS) 800-160 MG per tablet Take 1 tablet by mouth 2 times daily 20 tablet 0 02/24/2021 Active Start: 12-30-2020 End: 02-24-2021 sulfamethoxazole-trimethopri m (BACTRIM DS;SEPTRA DS) 800-160 MG per tablet Take by mouth 0 12/30/2020 02/24/2021 Discontinued (REORDER) Start: 12-30-2020 take 1 tablet by bethel every twelve hours Sulfamethoxazole-Trimethoprim 800-160 MG Oral Tablet Take 1 tab every 12 hours for 7 days Quantity: 14 Refills: 0 Ordered: 30-Dec-2020 Zak Bunn MD Start : 30-Dec-2020 Active tropicamide 10 mg/ml ophthalmic solution (2 sources) Anticholinergic Start: 02-07-2022 End: 02-08-2022 tropicamide 1 % 1 Drop (MYDRIACYL) Vitamins A,C,C-Pblv-Ifnkfo (Preservision Areds) 4,296 mcg-226 mg-90 mg capsule (2 sources) Start: 01-06-2024 Vitamins A,C,K-Fbnd-Fltryg (Preservision Areds) 4,296 mcg-226 mg-90 mg capsule Active 1 NMA PO DAILY January 06, 2024 9:23am Completed/Discontinued Medications Medication Drug Class(es) Dates Sig (Normalized) Sig (Original) acetaminophen 500 mg oral tablet (2 sources) Start: 02-24-2021 End: 02-24-2021 acetaminophen (TYLENOL) tablet 1,000 mg Start: 11-10-2015 End: 02-07-2022 take 2 tablets by mouth every eight hours acetaminophen (TYLENOL) 500 mg tablet Take 2 tablets by mouth every 8 hours. 90 tablet 0 11/10/2015 02/07/2022 Discontinued Comment on above: Take 2 tablets by mo [facility] every 8 hours. acetaminophen 325 mg / oxyCODONE hydrochloride 5 mg oral tablet (5 sources) Opioid Agonist Start: 03-19-20 End: 04-04-20 Oxycodone-Acetaminophe n (Percocet) 5-325 mg tablet Discontinued 1 {tbl} PO Q4H as needed for pain 20 5 0 March 19, 2022 2022 8:56am Umbilical hernia Umbilical hernia without obstruction or gangrene allopurinol 100 mg oral tablet (13 sources) Xanthine Oxidase Inhibitor Start: 01-05-20 End: 01-06-20 take 1 tablet by mouth once daily Allopurinol 100 mg tablet Discontinued 100 mg PO DAILY January 31, 2022 12:00am January 06, 2024 9:11am Comment on above: Take 100 mg by mouth once daily. beta-carotene,A,-vits C,E/mins (OCUVITE ORAL) (2 sources) beta-carotene,A, -vits C,E/mins (OCUVITE ORAL) Take by mouth one time a week. 0 Active Comment on above: Take by mouth one ti me a week. cyclobenzaprine hydrochloride 5 mg oral tablet (2 sources) Muscle Relaxant Start: 02-03-20 take 1 tablet by mouth every twelve hours as needed cyclobenzaprine (FLEXERIL) 5 mg tablet Take 5 mg by mouth twice daily as needed. 0 02/03/2016 Active Comment on above: Take 5 mg by mouth t wice daily as needed. docusate sodium 100 mg oral capsule (1 source) Start: 11-10-19 16 End: 02-08-20 22 take 1 capsule by mouth twice daily docusate sodium (COLACE) 100 mg capsule Take 1 capsule by mouth twice daily. 60 capsule 0 11/10/2015 02/07/2022 Discontinued Comment on above: Take 1 capsule by [facility] twice daily. 10 ml lidocaine hydrochloride 10 mg/ml injection (3 sources) Antiarrhythmic, Amide Local Anesthetic Start: 01-04-20 End: 01-04-20 21 lidocaine PF 1 % injection 2 mL Start: 11-23-2015 apply 1 dose transde rmal route once daily, then apply 1 dose transdermal route every twelve hours lidocaine (LIDODERM) 5 % Apply 1 Patch as directed once daily. to affected area. Remove patch after 12 hours. 30 Patch 0 11/23/2015 Active Comment on above: Apply 1 Patch as dir ected once daily. to affected area. Remove patch after 12 hours. vit A/vit C/vit E/zinc/copper (PRESERVISION AREDS ORAL) (2 sources) vit A/vit C/vit E/zinc/copper (PRESERVISION AREDS ORAL) Take by mouth twice daily. 0 Active Comment on above: Take by mouth twice daily. Vitamins A,C,U-Rdbl-Yomtko (Preservision Areds) 14,320-226-200 wggy-wr-ipuy capsule (5 sources) Start: 01-31-2022 End: 01-06-2024 Vitamins A,C,D-Apcx-Qbwjsm (Preservision Areds) 14,320-226-200 shus-yr-lqsw capsule Discontinued 1 NMA PO TWICE A DAY January 31, 2022 12:00am January 06, 2024 9:24am Start: 01-31-2022 take 1 capsule by [facility] twice daily Vitamins A,C,D-Utrp-Aqkkrg (Preservision Areds) 14,320-226-200 nssf-ig-chma capsule Active 1 CAP PO TWICE A DAY January 31, 2022 12:00am Problems Active Problems Problem Classification Problem Date Documented Da te Episodic/Chronic Abdominal hernia (6 sources) Umbilical hernia; Translations: [Umbilical hernia without obstruction or gangrene] Episodic Blindness and vision defects (11 sources) 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[place]; Translations: [Legal blindness, as defined in [place]] Onset: 02-07-2022 Chronic Cataract (3 sources) Bilateral pseudophakia; Translations: [Presence of intraocular lens] Onset: 05-04-2016 Chronic Coronary atherosclerosis and other heart disease (18 sources) Old myocardial infarction; Translations: [Old myocardial infarction] Onset: 04-25-2023 Chronic Coronary atherosclerosis and other heart disease (3 sources) Presence of coronary angioplasty implant and graft; Translations: [Percutaneous transluminal coronary angioplasty status] Episodic Disorders of lipid metabolism (19 sources) Pure hypercholesterolemia ; Translations: [Pure hypercholesterolemia , unspecified] Onset: 04-25-2023 Chronic Essential hypertension (20 sources) Essential hypertension; Translations: [Essential (primary) hypertension] Onset: 04-25-2023 Chronic Osteoarthritis (4 sources) Osteoarthritis of right hip joint; Translations: [Unilateral primary osteoarthritis, right hip] Onset: 05-17-2015 11-09-2015 Chronic Other aftercare (5 sources) Follow-up status; Translations: [Encounter for follow-up examination after completed treatment for conditions other than malignant neoplasm] 03-08-2022 Episodic Comment on above: 5-6 YRS AGO/[facility] Other and ill-defined heart disease (4 sources) Systolic dysfunction; Translations: [Heart disease, unspecified] Onset: 04-25-2023 04-25-2023 Chronic Other connective tissue disease (9 sources) History of repair of hip joint; Translations: [Presence of unspecified artificial hip joint] Onset: 04-25-2023 01-31-2022 Chronic Comment on above: Other connective tissue disease (5 sources) Abscess of bursa of elbow; Translations: [Other disorders of synovium, tendon, and bursa] Episodic Other eye disorders (2 sources) Bilateral posterior vitreous detachment; Translations: [Vitreous degeneration, bilateral] Onset: 03-31-2019 04-26-2020 Chronic Other nervous system disorders (4 sources) Carpal tunnel syndrome of left wrist; Translations: [Carpal tunnel syndrome, left upper limb] Onset: 04-25-2023 04-25-2023 Chronic Other nervous system disorders (2 sources) Carpal tunnel syndrome of right wrist; Translations: [Carpal tunnel syndrome, right upper limb] 02-02-2025 Chronic Other nervous system disorders (2 sources) Carpal tunnel syndrome, right upper limb; Translations: [Carpal tunnel syndrome, right upper limb] Onset: 02-02-2025 Chronic Other non-traumatic joint disorders (5 sources) Pain in elbow; Translations: [Pain in joint, upper arm] Episodic Other nutritional; endocrine; and metabolic disorders (6 sources) Severe obesity; Translations: [Class 2 severe obesity due to excess calories with serious comorbidity and body mass index (BMI) of 36.0 to 36.9 in adult ([facility])] Onset: 01-27-2024 04-27-2024 Chronic Other nutritional; endocrine; and metabolic disorders (2 sources) Obesity caused by energy imbalance; Translations: [Morbid (severe) obesity due to excess calories] 10-27-2024 Chronic Other nutritional; endocrine; and metabolic disorders (2 sources) Body mass index 30+ - obesity; Translations: [Body mass index (BMI) 36.0-36.9, adult] 10-27-2024 Chronic Other screening for suspected conditions (not mental disorders or infectious disease) (4 sources) Cardiovascular stress test abnormal; Translations: [Abnormal result of other cardiovascular function study] 11-22-2022 Episodic Residual codes; unclassified (10 sources) History of cardiac catheterization; Translations: [Other specified postprocedural states] 03-09-2022 Episodic Comment on above: 2000 Multivessel coronary angioplasty w/stenting Retinal detachments; defects; vascular occlusion; and retinopathy (9 sources) 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ated macular degeneration; Translations: [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ated macular degeneration, bilateral, advanced atrophic with subfoveal involvement] Onset: 01-31-2016 Chronic Superficial injury; contusion (1 source) Contusion of right elbow; Translations: [Contusion of right elbow, initial encounter] Episodic Past or Other Problems Problem Classification Problem Date Documented Date Episodic/Chronic Diabetes mellitus without complication (12 sources) Abnormal glucose level; Translations: [Impaired fasting glucose] Onset: 04-30-2024 04-30-2024 Episodic Fracture of upper limb (6 sources) Closed fracture of olecranon process of ulna; Translations: [Displaced fracture of olecranon process without intraarticular extension of unspecified ulna, initial encounter for closed fracture] Onset: 01-13-2013 Resolved: 01-27-2024 01-13-2013 Episodic Gout and other crystal arthropathies (4 sources) Articular gout; Translations: [Gout, unspecified] Onset: 04-25-2023 Resolved: 04-25-2023 04-25-2023 Chronic Other aftercare (2 sources) Surgical follow-up; Translations: [Encounter for follow-up examination after completed treatment for conditions other than malignant neoplasm] Onset: 08-06-2012 11-23-2015 Episodic Other connective tissue disease (2 sources) Osteophyte of bone; Translations: [Enthesopathy, unspecified] Onset: 06-26-2012 06-26-2012 Episodic Other connective tissue disease (2 sources) Olecranon bursitis; Translations: [Olecranon bursitis, unspecified elbow] Onset: 06-26-2012 06-26-2012 Episodic Other connective tissue disease (2 sources) Trochanteric bursitis of right hip; Translations: [Trochanteric bursitis, right hip] Onset: 12-26-2017 12-26-2017 Episodic Other ear and sense organ disorders (4 sources) Impacted cerumen of bilateral ears; Translations: [Impacted cerumen, bilateral] Onset: 04-25-2023 Resolved: 04-25-2023 04-25-2023 Episodic Other eye disorders (2 sources) Excess skin of eyelid; Translations: [Dermatochalasis of right upper eyelid] Onset: 01-31-2016 01-31-2016 Episodic Other non-traumatic joint disorders (2 sources) Pain in right hip joint; Translations: [Pain in right hip] Onset: 04-25-2015 04-25-2015 Episodic Other non-traumatic joint disorders (6 sources) Pain in left shoulder; Translations: [Pain in joint, shoulder region] Onset: 04-30-2024 04-30-2024 Episodic Other upper respiratory disease (4 sources) Allergy to pollen; Translations: [Allergic rhinitis due to pollen] Onset: 04-25-2023 Resolved: 04-25-2023 04-25-2023 Chronic Residual codes; unclassified (6 sources) Edema of lower extremity; Translations: [Localized edema] Onset: 01-27-2024 04-30-2024 Episodic Results Test Name Value Interpretation Reference Range Facility Orthopedic Visit Reporton Orthopedic Visit Report [facility] [address] [place] [id number] OFFICE VISIT Date of Service: 02/02/25 MR#: [id number] Acct: [id number] Name: TAYLOR ARNDT Rep #: [id number] : 1940 Provider: Dr. Frankie vásquez MD Age/Sex: 84/M Location: [email or web address] Status: Signed Intake Vital Signs 10/01/24 15:17 02/02/25 09:40 Height 5 ft 4 in 5 ft 4 in Weight: 217 lb 214 lb 8 oz BMI 37.2 36.8 BP 135/73 H Blood Pressure Location Lt brachial Position Sitting Respiration 16 Pulse 91 Pulse Source Monitor Intake Visit Reasons: RIGHT HAND Chief Complaint: Right hand Accompanied by: Daughter In Law Is patient in pain?: Yes (When closing the hand) Pain scale (1-10): 8 Allergies No Known Allergies Allergy (Unverified 02/02/25 09:43) Medications ???Medication ???Instructions ???Recorded ???Confirmed ???Type aspirin 81 mg tablet,delayed 81 mg PO DAILY 01/31/22 02/02/25 H istory release (Adult Aspirin Regimen) atorvastatin 20 mg tablet 20 mg PO DAILY 01/31/22 02/02/25 H istory lisinopril 10 mg tablet 10 mg PO DAILY 01/31/22 02/02/25 H istory allopurinol 100 mg tablet 100 mg PO DAILY PRN 01/06/2402/02 History probenecid 500 mg-colchicine 0.5 1 tab PO BID PRN 01/06/24 02/02/25 History mg tablet vitamins A,C,H-hzdk-dvcdjl 4,296 1 cap PO DAILY 01/06/24 02/02/25 H istory mcg-226 mg-90 mg capsule (PreserVision AREDS) Have you fallen in the past year?: No PFSH Medical History Right carpal tunnel syndrome Atherosclerotic heart disease of [place] coronary artery without angina pectoris Old myocardial infarction Pure hypercholesterolemia History of left heart catheterization (LHC) ( 2000) Essential hypertension Legally blind Arthritis Gout High cholesterol Injury of head and neck Non-smoker History of stress test Cardiology follow-up encounter Hypertension Heart attack Hypertension Surgical History Hx of umbilical hernia repair History of cardiac catheterization H/O heart artery stent S/P appendectomy S/P hip replacement Social History Smoking Status: Never smoker alcohol intake: never substance use type: does not use caffeine: Yes Type: coffee Number of servings: 2 and tea HPI RIGHT HAND Details: This documentation accurately reflects the service provided and the decisions made by me, Dr. Frankie Cr MD 02/02/25 0844. Part of today???s visit was documented by [ ], acting as scribe. TAYLOR ARNDT is a 84 year old M here today for R possible carpal tunnel syndrome. Patient has numbness and tingling into the thumb index and middle finger predominantly on the right side. Much less so on the left side but some numbness into the left middle finger. He has to shake it out. 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 This problem has been getting worse over the last year or longer. He is trying bracing during the nighttime as well as during the day and seems to be helping slightly. Feels like the hand is weak. Coding Level of Care Code Off vis,new,level 4 Diagnoses Right carpal tunnel syndrome G56.01 Assessment and Plan Assessment and Plan (1) Right carpal tunnel syndrome: Status: Acute Plan: TAYLOR ARNDT is a 84 year old M here today for R possible carpal tunnel syndrome. Clinically as well as subjectively the patient has right carpal tunnel syndrome. Negative Tinel's at the elbow and no numbness to that ulnar nerve distribution. The next step I will go ahead and order bilateral upper extremity nerve conduction studies he is getting some mild symptoms as well contralateral side and follow-up after that in the meantime nighttime splinting we also discussed other options including cortisone injections and surgery. Carpal Tunnel Syndrome (CTS) occurs when the median nerve, which runs through the wrist, becomes compressed. Treatment options vary based on the severity of the condition: Non-Surgical Treatments: Wrist Splinting: Wearing a splint at night to keep the wrist in a neutral position. Activity Modification: Avoiding repetitive wrist movements or adjusting work habits. Physical Therapy: Exercises to improve wrist and hand function. Medications: Anti-inflammatory drugs (NSAIDs) or corticosteroid injections to reduce swelling and pain. Surgical Treatment: Carpal Tunnel Release Surgery: A procedure where the ligament pressing on the median nerve is cut to relieve pressure. This is considered when non-surgical padmini (more content not included)... Normal [facility] Absolute neutrophil countOrd ered By: Parminder Chris on 10-01-2024 Neutrophils (Bld) [#/Vol] 8.0 10*3/uL High 2.0-7.7 [facility] Anion gap in Serum or Plasma Ordered By: Parminder Chris on 10-01-2024 Anion gap [Moles/Vol] 15 mmol/L 11-19 [facility] BUN/creatinine ratioOrdered By: Parminder Chris on 10-01-2024 Urea nitrogen/Creatinine [Mass ratio] 13.0 mg/mg 04-26 [facility] Basic Metabolic Profile (BMP )on 10-01-2024 BUN/CRE 13.0 RATIO Normal 04-26 [facility] Comment on above: Performed By: #### L 100.0100, L500.2500 #### [facility] [address] [place], [address] Calcium [Mass/Vol] 9.3 mg/dL Normal 7.6-11.0 [facility] Comment on above: Performed By: #### L 100.0100, L500.2500 #### [facility] [address] [place], [address] Chloride [Moles/Vol] 106 mmol/L Normal 98-108 [facility] Comment on above: Performed By: #### L 100.0100, L500.2500 #### [facility] [address] [place], [address] CO2 [Moles/Vol] 22.5 mmol/L Normal 21.0-32.0 [facility] Comment on above: Performed By: #### L 100.0100, L500.2500 #### [facility] [address] [place], [address] Creatinine [Mass/Vol] 1.25 mg/dL High 0.70-1.20 [facility] Comment on above: Performed By: #### L 100.0100, L500.2500 #### [facility] [address] [place], [address] GAP 15 Normal 5-15 [facility] Comment on above: Performed By: #### L 100.0100, L500.2500 #### [facility] [address] [place], [address] GFR/1.73 sq M.predicted among non-blacks MDRD (S/P/Bld) [Vol rate/Area] 57 mL/min/{1.73_m2} Low >60 [facility] Comment on above: Result Comment: mL/m in/1.73m2 CKD-EPI Creatinine Equation (2020) Performed By: #### L 100.0100, L500.2500 #### [facility] [address] [place], [address] Glucose [Mass/Vol] 98 mg/dL Normal 70-99 [facility] Comment on above: Performed By: #### L 100.0100, L500.2500 #### [facility] [address] [place], [address] Potassium [Moles/Vol] 3.6 mmol/L Normal 3.3-5.1 [facility] Comment on above: Result Comment: Hemo lysis present, Results??could be affected. ?? Performed By: #### L 100.0100, L500.2500 #### [facility] [address] [place], [address] Sodium [Moles/Vol] 143 mmol/L Normal 133-145 [facility] Comment on above: Performed By: #### L 100.0100, L500.2500 #### [facility] [address] [place], [address] Urea nitrogen [Mass/Vol] 16 mg/dL Normal 4-19 [facility] Comment on above: Performed By: #### L 100.0100, L500.2500 #### [facility] [address] [place], [address] Basophil percentageOrdered B y: Parminder Chris on 10-01-2024 Basophils/100 WBC (Bld) 0.5 % 0-1 [facility] CBC W/Diff, Automatedon 09-06 Absolute Lymph 2.07 X10 3/uL Normal 0.83-4.51 [facility] Comment on above: Performed By: #### L 100.0100, L500.2500 #### [facility] [address] [place], [address] Absolute Neut 8.0 X10 3/uL High 2.0-7.7 [facility] Comment on above: Performed By: #### L 100.0100, L500.2500 #### [facility] [address] [place], [address] Basophils/100 WBC (Bld) 0.5 % Normal 0-1 [facility] Comment on above: Performed By: #### L 100.0100, L500.2500 #### [facility] [address] [place], [address] Eosinophils/100 WBC (Bld) 1.4 % Normal 0-5 [facility] Comment on above: Performed By: #### L 100.0100, L500.2500 #### [facility] [address] [place], [address] Erythrocyte distribution width (RBC) [Ratio] 13.4 % Normal 11.6-14.6 [facility] Comment on above: Performed By: #### L 100.0100, L500.2500 #### [facility] [address] [place], [address] Hematocrit (Bld) [Volume fraction] 47.1 % Normal 40-54 [facility] Comment on above: Performed By: #### L 100.0100, L500.2500 #### [facility] [address] [place], [address] Hemoglobin (Bld) [Mass/Vol] 16.7 g/dL High 13.0-16.5 [facility] Comment on above: Performed By: #### L 100.0100, L500.2500 #### [facility] [address] [place], [address] IG% 0.800 Normal 0.0-0.9 [facility] Comment on above: Result Comment: IG% - Immature Granulocytes (promyelocytes, myelocytes and metamyelocytes) > 1% indicates that a LEFT SHIFT is Present. Performed By: #### L 100.0100, L500.2500 #### [facility] [address] [facility] [place], [address] Lymphocytes/100 WBC (Bld) 18.1 % Low 19-41 [facility] Comment on above: Performed By: #### L 100.0100, L500.2500 #### [facility] [address] [place], [address] MCH (RBC) [Entitic mass] 33.4 pg High 27.0-32.0 [facility] Comment on above: Performed By: #### L 100.0100, L500.2500 #### [facility] [address] [place], [address] MCHC (RBC) [Mass/Vol] 35.5 g/dL Normal 32-36 [facility] Comment on above: Performed By: #### L 100.0100, L500.2500 #### [facility] [address] [place], [address] MCV (RBC) [Entitic vol] 94.2 fL High 80-94 [facility] Comment on above: Performed By: #### L 100.0100, L500.2500 #### [facility] [address] [place], [address] Monocytes/100 WBC (Bld) 9.3 % Normal 0-10 [facility] Comment on above: Performed By: #### L 100.0100, L500.2500 #### [facility] [address] [place], [address] Neutrophils/100 WBC (Bld) 69.9 % Normal 47-70 [facility] Comment on above: Performed By: #### L 100.0100, L500.2500 #### [facility] [address] [place], [address] Nucleated RBC (Bld) [#/Vol] 0 10*3/uL Normal 0-5 [facility] Comment on above: Performed By: #### L 100.0100, L500.2500 #### [facility] [address] [place], [address] Platelet mean volume (Bld) [Entitic vol] 10.2 fL Normal 6.2-12.0 [facility] Comment on above: Performed By: #### L 100.0100, L500.2500 #### [facility] [address] [place], [address] Platelets (Bld) [#/Vol] 243 10*3/uL Normal 150-450 [facility] Comment on above: Performed By: #### L 100.0100, L500.2500 #### [facility] [address] [place], [address] RBC (Bld) [#/Vol] 5.00 10*6/uL Normal 4.6-6.2 [facility] Comment on above: Performed By: #### L 100.0100, L500.2500 #### [facility] [address] [place], [address] RDW SD 46.6 fl High 35.1-43.9 [facility] Comment on above: Performed By: #### L 100.0100, L500.2500 #### [facility] [address] [place], [address] WBC (Bld) [#/Vol] 11.4 10*3/uL High 4.4-11.0 [facility] Comment on above: Performed By: #### L 100.0100, L500.2500 #### [facility] [address] [place], [address] Carbon dioxide, total [Moles /volume] in Central venous bloodOrdered By: Parminder Perez on 10-01-2024 CO2 [Moles/Vol] 22.5 mmol/L 21.0-32.0 [facility] Cardiology Visit Reporton Cardiology Visit Report [facility] [address] [place], [place] [address] OFFICE VISIT Date of Service: 10/01/24 MR#: [id number] Acct: [id number] Name: TAYLOR ARNDT Rep #: [id number] : 1940 Provider: Dr. Parminder Perez MD Age/Sex: 84/M Location: [facility] Status: Signed HPI HPI History of Present Illness Details: This is an 84-year-old white male who presents to the office today for a cardiovascular follow-up visit. He has a past cardiovascular history which includes underlying CAD, and NC, PCI (details unknown), hyperlipidemia, hypertension, and macular degeneration. He was previously seen through [facility] [place] [place] [facility]. He had a transthoracic echocardiogram performed on 02-02-2016 through his hospital system through the [facility]. He went a cardiac catheterization on 12/10/2022 following an abnormal stress test. His cardiac catheterization results demonstrated patent stent in the LAD with mild disease noted in this vessel, left circumflex artery, and ramus intermedius.??? Totally occluded right coronary artery with [id number] collaterals. Medical therapy was recommended. His echocardiogram from 12/19/2022 demonstrated ejection fraction of 50%, stage I diastolic dysfunction, and structurally normal valves. From a cardiac standpoint, the patient is doing well. He is accompanied by his daughter. He denies any palpitations, chest pain, pressure or heaviness. He denies SOB, Orthopnea, and PND. He does not have bleeding issues; no blood in urine, stool or nosebleeds. He denies any decrease in energy level, myalgias, or claudication. He does not have edema, or sudden weight gain. He denies dizziness, lightheadedness, syncopal or near syncopal episodes, and headaches. He says that he was quite sick recently but is getting better. Intake Vital Signs 05/16/23 09:03 01/06/24 09:13 10/01/24 15:17 Height 5 ft 4 in 5 ft 4 in 5 ft 4 in Weight: 217 lb BMI 37.2 BP 135/73 H Blood Pressure Location Lt brachial Position Sitting Respiration 16 Pulse 91 Pulse Source Monitor Intake Visit Reasons: 1 Y FU Administrative Support Manager Required: No Accompanied by: Daughter Is patient in pain?: No Allergies No Known Allergies Allergy (Unverified 10/01/24 15:20) Medications ???Medication ???Instructions ???Recorded ???Confirmed ???Type aspirin 81 mg tablet,delayed 81 mg PO DAILY 01/31/22 10/01/24 H istory release (Adult Aspirin Regimen) atorvastatin 20 mg tablet 20 mg PO DAILY 01/31/22 10/01/24 H istory lisinopril 10 mg tablet 10 mg PO DAILY 01/31/22 10/01/24 H istory allopurinol 100 mg tablet 100 mg PO DAILY PRN 01/06/2410/01 History probenecid 500 mg-colchicine 0.5 1 tab PO BID PRN 01/06/24 10/01/24 History mg tablet vitamins A,C,D-bsov-rnzynw 4,296 1 cap PO DAILY 01/06/24 10/01/24 H istory mcg-226 mg-90 mg capsule (PreserVision AREDS) Have you fallen in the past year?: Yes [facility] Medical History Atherosclerotic heart disease of [place] coronary artery without angina pectoris Old myocardial infarction Pure hypercholesterolemia History of left heart catheterization ([facility]) ( 2000) Essential hypertension Legally blind Arthritis Gout High cholesterol Injury of head and neck Non-smoker History of stress test Cardiology follow-up encounter Hypertension Heart attack Hypertension Surgical History Hx of umbilical hernia repair History of cardiac catheterization H/O heart artery stent S/P appendectomy S/P hip replacement Social History Smoking Status: Never smoker alcohol intake: never substance use type: does not use caffeine: Yes Type: coffee Number of servings: 2 and tea ROS Const Const: Positive for fatigue and difficulty sleeping; Negative for weakness, headache(s) or daytime sleepiness ENT ENT: Negative for headache(s), dizziness or Nosebleed/epistaxis Cardio Chest Pain: No Palpitations: No Edema: None Resp Respiratory: Negative for SOB with activity, SOB at rest, SOB orthopnea SOB lying down or Cough GI GI: Negative nausea, vomiting or heartburn Neuro Neuro: Negative for dizziness, lightheadedness, near syncope, headache(s) or weakness Endo Endo: Positive for fatigue Cardiology Exam Const Appearance: cooperative, healthy appearing, comfortable, no acute distress, well developed and well groomed Nutritional Appearance: obese Orientation: alert, awake and oriented x3 Head Head: normal to inspection, normocephalic and atraumatic Ears: hearing grossly normal bilaterally Nose: external nose normal Face and Sinus: face symmetric Eyes Eyelids: eye (more content not included)... Normal [facility] Chloride assayOrdered By: Luis Fernando Perez on 10-01-2024 Chloride [Moles/Vol] 106 mmol/L 98-108 [facility] Eosinophil percentageOrdered By: Parminder Perez on 10-01-2024 Eosinophils/100 WBC (Bld) 1.4 % 0-5 [facility] Erythrocyte distribution wid th ratioOrdered By: Parminder Perez on 10-01-2024 Erythrocyte distribution width (RBC) [Ratio] 13.4 % 11.6-14.6 [facility] Erythrocyte distribution wid th standard deviationOrdered By: Parminder Perze on 10-01-2024 Erythrocyte distribution width (RBC) [Entitic vol] 46.6 fL High 35.1-43.9 [facility] GFR/1.73 sq M.predicted jesus g non-blacks MDRD (S/P/Bld) [Vol rate/Area]Ordered By: Parminderkatiana Perez on 10-01-2024 Estimated GFR (MDRD) Non-Af Amer 57 Low >60 [facility] Comment on above: mL/min/1.73m2 CKD-EP I Creatinine Equation (2020) Hematocrit Auto (Bld) [Volum e fraction]Ordered By: Parminder Perez on 10-01-2024 Hematocrit (Bld) [Volume fraction] 47.1 % 40-54 [facility] Hemoglobin measurementOrdere d By: Parminder Perez on 10-01-2024 Hemoglobin (Bld) [Mass/Vol] 16.7 g/dL High 13.0-16.5 [facility] Immature granulocytes/100 WB C Auto (Bld)Ordered By: Parminder Perez on 10-01-2024 Immature granulocytes/100 WBC (Bld) 0.800 % 0.0-0.9 [facility] Comment on above: IG% - Immature Granu locytes (promyelocytes, myelocytes and metamyelocytes) > 1% indicates that a LEFT SHIFT is Present. Lymphocytes Auto (Unsp spec) [#/Vol]Ordered By: Parminder Perez on 10-01-2024 Lymphocytes (Bld) [#/Vol] 2.07 10*3/uL 0.83-4.51 [facility] Lymphocytes/100 WBC Auto (Un sp spec)Ordered By: Parminder Perez on 10-01-2024 Lymphocytes/100 WBC (Bld) 18.1 % Low 19-41 [facility] MCV (mean corpuscular volume ) determinationOrdered By: Parminder Perez on 10-01-2024 MCV (RBC) [Entitic vol] 94.2 fL High 80-94 [facility] Mean corpuscular hemoglobin (MCH) determinationOrdered By: Parminder Perez on 10-01-2024 MCH (RBC) [Entitic mass] 33.4 pg High 27.0-32.0 [facility] Mean corpuscular hemoglobin concentration (MCHC) determinationOrdered By: Parminder Perez on 10-01-2024 MCHC (RBC) [Mass/Vol] 35.5 g/dL 32-36 [facility] Mean platelet volume determi nationOrdered By: Edgewaterkatiana Perez on 10-01-2024 Platelet mean volume (Bld) [Entitic vol] 10.2 fL 6.2-12.0 [facility] Monocyte percentageOrdered B y: [place] Chris on 10-01-2024 Monocytes/100 WBC (Bld) 9.3 % 0-10 [facility] Neutrophil percentageOrdered By: Parminder Chris on 10-01-2024 Neutrophils/100 WBC (Bld) 69.9 % 47-70 [facility] Nucleated red blood cell per centageOrdered By: Parminderkatiana Perez on 10-01-2024 Nucleated RBC/100 WBC (Bld) [Ratio] 0 % 0-5 [facility] Platelet countOrdered By: Luis Fernando ril Chris on 10-01-2024 Platelets (Bld) [#/Vol] 243 10*3/uL 150-450 [facility] Potassium (Unsp spec) [Mass/ Vol]Ordered By: Parminder Perez on 10-01-2024 Potassium [Moles/Vol] 3.6 mmol/L 3.3-5.1 [facility] Comment on above: Hemolysis present, R esults could be affected. RBC Auto (Bld) [#/Vol]Ordere d By: Parminder Perez on 10-01-2024 RBC (Bld) [#/Vol] 5.00 10*6/uL 4.6-6.2 [facility] Serum creatinine measurement (mass/volume)Ordered By: Parminder Perez on 10-01-2024 Creatinine [Mass/Vol] 1.25 mg/dL High 0.70-1.20 [facility] Serum glucose measurement (m ass/volume)Ordered By: Parminder Perez on 10-01-2024 Glucose [Mass/Vol] 98 mg/dL 70-99 [facility] Serum or plasma calcium marguerite urement (mass/volume)Ordered By: Parminder Perez on 10-01-2024 Calcium [Mass/Vol] 9.3 mg/dL 7.6-11.0 [facility] Serum or plasma urea nitroge n measurement (mass/volume)Ordered By: Parminder Perez on 10-01-2024 Urea nitrogen [Mass/Vol] 16 mg/dL 4-19 [facility] Sodium levelOrdered By: Dontae Perez on 10-01-2024 Sodium [Moles/Vol] 143 mmol/L 133-145 [facility] White blood cell (WBC) count Ordered By: Parminder Perez on 10-01-2024 WBC (Bld) [#/Vol] 11.4 10*3/uL High 4.4-11.0 [facility] - Hematology and Cell countson 04-30-2024 HbA1c (Bld) [Mass fraction] 6 % [facility] No Panel Informationon 04-30 [facility] Comprehensive Metabolic Pane lam 02-08-2024 Albumin [Mass/Vol] 3.9 g/dL Normal 3.5-4.6 [facility] Comment on above: Order Comment: CALL doctor [id number] tel. , FAX [phone] Performed By: #### C MP #### [facility] [address] [place] [address] ALP [Catalytic activity/Vol] 78 U/L Normal 35-104 [facility] Comment on above: Order Comment: CALL doctor [email or web address] tel. , FAX [phone] Performed By: #### C MP #### [facility] [address] [place] [address] ALT [Catalytic activity/Vol] 18 U/L Normal 0-41 [facility] Comment on above: Order Comment: CALL doctor [email or web address] tel. , FAX [phone] Performed By: #### C MP #### [facility] [address] [place] [address] Anion gap [Moles/Vol] 13 mmol/L Normal 9-15 [facility] Comment on above: Order Comment: CALL doctor [email or web address] tel. , FAX [phone] Performed By: #### C MP #### [facility] [address] [place] [address] AST [Catalytic activity/Vol] 20 U/L Normal 0-40 [facility] Comment on above: Order Comment: CALL doctor [email or web address] tel. , FAX [phone] Performed By: #### C MP #### [facility] [address] [place] [address] Bilirubin [Mass/Vol] 0.6 mg/dL Normal 0.2-0.7 [facility] Comment on above: Order Comment: CALL doctor [email or web address] tel. , FAX [phone] Performed By: #### C MP #### [facility] [address] [place] [address] Calcium [Mass/Vol] 9.1 mg/dL Normal 8.5-9.9 [facility] Comment on above: Order Comment: CALL doctor [email or web address] tel. , FAX [phone] Performed By: #### C MP #### [facility] [address] [place] [address] Chloride [Moles/Vol] 104 mmol/L Normal 95-107 [facility] Comment on above: Order Comment: CALL doctor [email or web address] tel. , FAX [phone] Performed By: #### C MP #### [facility] [address] [place] [address] CO2 [Moles/Vol] 24 mmol/L Normal 20-31 [facility] Comment on above: Order Comment: CALL doctor [email or web address] tel. , FAX [phone] Performed By: #### C MP #### [facility] [address] [place] [address] Creatinine [Mass/Vol] 0.98 mg/dL Normal 0.70-1.20 [facility] Comment on above: Order Comment: CALL doctor [email or web address] tel. , FAX [phone] Performed By: #### C MP #### [facility] [address] [place] [address] GFR 76.1 Normal >60 [facility] Comment on above: Order Comment: CALL doctor [email or web address] tel. , FAX [phone] Result Comment: Starr atric calculator link https://www.kidney.org/professionals/kdoqi/gfr_calculatorped Effective Apr 09, 2022 These results are not intended for use in patients <18 years of age. eGFR results are calculated without a race factor using the 2020 CKD-EPI equation. Careful clinical correlation is recommended, particularly when comparing to results calculated using previous equations. The CKD-EPI equation is less accurate in patients with extremes of muscle mass, extra-renal metabolism of creatinine, excessive creatinine ingestion, or following therapy that affects renal tubular secretion. Performed By: #### C MP #### [facility] [address] [place] [address] Globulin (S) [Mass/Vol] 2.8 g/dL Normal 2.3-3.5 [facility] Comment on above: Order Comment: CALL doctor [email or web address] tel. , FAX [phone] Performed By: #### C MP #### [facility] [address] [place] [address] Glucose [Mass/Vol] 110 mg/dL Critically high 70-99 [facility] Comment on above: Order Comment: CALL doctor [email or web address] tel. , FAX [phone] Performed By: #### C MP #### [facility] [address] [place] [address] Potassium [Moles/Vol] 4.1 mmol/L Normal 3.4-4.9 [facility] Comment on above: Order Comment: CALL doctor [email or web address] tel. , FAX [phone] Performed By: #### C MP #### [facility] [address] [place] [address] Protein [Mass/Vol] 6.7 g/dL Normal 6.3-8.0 [facility] Comment on above: Order Comment: CALL doctor [email or web address] tel. , FAX [phone] Performed By: #### C MP #### [facility] [address] [place] [address] Sodium [Moles/Vol] 141 mmol/L Normal 135-144 [facility] Comment on above: Order Comment: CALL doctor [email or web address] tel. , FAX [phone] Performed By: #### C MP #### [facility] [address] [place] [address] Urea nitrogen [Mass/Vol] 15 mg/dL Normal 8-23 [facility] Comment on above: Order Comment: CALL doctor [email or web address] tel. , FAX [phone] Performed By: #### C MP #### [facility] [address] [place] [address] Comprehensive metabolic 2000 panelon 02-08-2024 Albumin [Mass/Vol] 3.9 g/dL 3.5 - 4.6 g/dL [facility] ALP [Catalytic activity/Vol] 78 U/L 35 - 104 U/L [facility] ALT [Catalytic activity/Vol] 18 U/L 0 - 41 U/L [facility] Anion gap [Moles/Vol] 13 mmol/L [facility] AST [Catalytic activity/Vol] 20 U/L 0 - 40 U/L [facility] Bilirubin [Mass/Vol] 0.6 mg/dL 0.2 - 0 .7 mg/dL [facility] Calcium [Mass/Vol] 9.1 mg/dL 8.5 - 9.9 mg/dL [facility] Chloride [Moles/Vol] 104 mmol/L [facility] CO2 [Moles/Vol] 24 mmol/L [facility] Creatinine [Mass/Vol] 0.98 mg/dL 0.70 - 1.20 mg/dL [facility] GFR/1.73 sq M.predicted among non-blacks MDRD (S/P/Bld) [Vol rate/Area] 76.1 mL/min/{1.73_m2} 60 - [facility] Comment on above: Pediatric calculator link https://www.kidney.org/professionals/kdoqi/gfr_calculatorped Effective Apr 09, 2022 These results are not intended for use in patients <18 years of age. eGFR results are calculated without a race factor using the 2020 CKD-EPI equation. Careful clinical correlation is recommended, particularly when comparing to results calculated using previous equations. The CKD-EPI equation is less accurate in patients with extremes of muscle mass, extra-renal metabolism of creatinine, excessive creatinine ingestion, or following therapy that affects renal tubular secretion. Globulin (S) [Mass/Vol] 2.8 g/dL 2.3 - 3.5 g/dL [facility] Glucose [Mass/Vol] 110 mg/dL High 70 - 99 mg/dL [facility] [employer] Potassium [Moles/Vol] 4.1 mmol/L [facility] Protein [Mass/Vol] 6.7 g/dL 6.3 - 8.0 g/dL [facility] Sodium [Moles/Vol] 141 mmol/L [facility] [employer] Urea nitrogen [Mass/Vol] 15 mg/dL 8 - 23 mg/dL [facility] Lipid Panelon 02-08-2024 Cholesterol [Mass/Vol] 174 mg/dL Normal 0-199 [facility] op5 Comment on above: Order Comment: CALL doctor [id number] tel. , FAX [phone] Result Comment: ATP III Cholesterol classification is Desirable. Performed By: #### L IPID #### [facility] [address] [facility] [id number] ATP III Cholesterol classification is Desirable. Cholesterol in HDL [Mass/Vol] 34 mg/dL Low 40-59 [facility] Comment on above: Order Comment: CALL doctor [id number] tel. , FAX [phone] Result Comment: ATP III HDL Cholestrol Classification is low. Expected Values: Males: >55 = No Risk 35-55 = Moderate Risk <35 = High Risk Females: >65 = No Risk 45-65 = Moderate Risk <45 = High Risk NCEP Guidelines: Third Report November 2000 >59 = negative risk factor for CHD <40 = major risk factor for CHD Performed By: #### L IPID #### [facility] [address] [place] [id number] ATP III HDL Cholestr ol Classification is low. Expected Values: Males: >55 = No Risk 35-55 = Moderate Risk <35 = High Risk Females: >65 = No Risk 45-65 = Moderate Risk <45 = High Risk NCEP Guidelines: Third Report November 2000 >59 = negative risk factor for CHD <40 = major risk factor for CHD Cholesterol in LDL [Mass/Vol] 67 mg/dL Normal 0-129 [facility] Comment on above: Order Comment: CALL doctor [id number] tel. , FAX [phone] Result Comment: ATP III LDL Classification is Optimal. Performed By: #### L IPID #### [facility] [address] [place] [address] ATP III LDL Classifi cation is Optimal. Triglyceride [Mass/Vol] 363 mg/dL Critically high 0-150 [facility] Comment on above: Order Comment: CALL doctor [id number] tel. , FAX [phone] Result Comment: ATP III Triglycerides Classification is High. Performed By: #### L IPID #### [facility] [address] [place] [address] ATP III Triglyceride s Classification is High. No Panel Informationon 02-07 Interpretation and review of laboratory results Abnormal [facility] CALL doctor [id number] te l. , FAX [phone] [facility] Comprehensive Metabolic Pane lam 05-17-2023 Albumin [Mass/Vol] 3.9 g/dL Normal 3.5-4.6 [facility] Comment on above: Performed By: #### C MP #### [facility] [address] [place] [address] ALP [Catalytic activity/Vol] 94 U/L Normal 35-104 [facility] Comment on above: Performed By: #### C MP #### [facility] [address] [place] [address] ALT [Catalytic activity/Vol] 28 U/L Normal 0-41 [facility] Comment on above: Performed By: #### C MP #### [facility] [address] [place] [address] Anion gap [Moles/Vol] 11 mmol/L Normal 9-15 [facility] Comment on above: Performed By: #### C MP #### [facility] [address] [place] [address] AST [Catalytic activity/Vol] 21 U/L Normal 0-40 [facility] Comment on above: Performed By: #### C MP #### [facility] [address] [place] [address] Bilirubin [Mass/Vol] 0.4 mg/dL Normal 0.2-0.7 [facility] Comment on above: Performed By: #### C MP #### [facility] [address] [place] [address] Calcium [Mass/Vol] 9.0 mg/dL Normal 8.5-9.9 [facility] Comment on above: Performed By: #### C MP #### [facility] [address] [place] [address] Chloride [Moles/Vol] 100 mmol/L Normal 95-107 [facility] Comment on above: Performed By: #### C MP #### [facility] [address] [place] [address] CO2 [Moles/Vol] 27 mmol/L Normal 20-31 [facility] Comment on above: Performed By: #### C MP #### [facility] [address] [place] [address] Creatinine [Mass/Vol] 1.15 mg/dL Normal 0.70-1.20 [facility] Comment on above: Performed By: #### C MP #### [facility] [address] [place] [address] GFR >60.0 Normal >60 [facility] Comment on above: Result Comment: Starr atric calculator link https://www.kidney.org/professionals/kdoqi/gfr_calculatorped Effective Apr 09, 2022 These results are not intended for use in patients <18 years of age. eGFR results are calculated without a race factor using the 2020 CKD-EPI equation. Careful clinical correlation is recommended, particularly when comparing to results calculated using previous equations. The CKD-EPI equation is less accurate in patients with extremes of muscle mass, extra-renal metabolism of creatinine, excessive creatinine ingestion, or following therapy that affects renal tubular secretion. Performed By: #### C MP #### [facility] [address] [place] [address] Globulin (S) [Mass/Vol] 3.1 g/dL Normal 2.3-3.5 [facility] Comment on above: Performed By: #### C MP #### [facility] [address] [place] [address] Glucose [Mass/Vol] 98 mg/dL Normal 70-99 [facility] Comment on above: Performed By: #### C MP #### [facility] [address] [place] [address] Potassium [Moles/Vol] 3.9 mmol/L Normal 3.4-4.9 [facility] Comment on above: Performed By: #### C MP #### [facility] [address] [place] [address] Protein [Mass/Vol] 7.0 g/dL Normal 6.3-8.0 [facility] Comment on above: Performed By: #### C MP #### [facility] [address] [place] [address] Sodium [Moles/Vol] 138 mmol/L Normal 135-144 [facility] Comment on above: Performed By: #### C MP #### [facility] [address] [place] [address] Urea nitrogen [Mass/Vol] 21 mg/dL Normal 8-23 [facility] Comment on above: Performed By: #### C MP #### [facility] [address] [place] [address] Lipid Panelon 05-17-2023 Cholesterol [Mass/Vol] 129 mg/dL Normal 0-199 [facility] Comment on above: Result Comment: ATP III Cholesterol classification is Desirable. Performed By: #### L IPID #### [facility] [address] [place] [address] Cholesterol in HDL [Mass/Vol] 37 mg/dL Low 40-59 [facility] Comment on above: Result Comment: ATP III HDL Cholestrol Classification is low. Expected Values: Males: >55 = No Risk 35-55 = Moderate Risk <35 = High Risk Females: >65 = No Risk 45-65 = Moderate Risk <45 = High Risk NCEP Guidelines: Third Report November 2000 >59 = negative risk factor for CHD <40 = major risk factor for CHD Performed By: #### L IPID #### [facility] [address] [facility] [address] Cholesterol in LDL [Mass/Vol] 50 mg/dL Normal 0-129 [facility] Comment on above: Result Comment: ATP III LDL Classification is Optimal. Performed By: #### L IPID #### [facility] [address] [facility] [address] Triglyceride [Mass/Vol] 209 mg/dL Critically high 0-150 [facility] Comment on above: Result Comment: ATP III Triglycerides Classification is High. Performed By: #### L IPID #### [facility] [address] [facility] [address] Absolute lymphocyte countOrd ered By: Kamla Albarado on 11-30-2022 Lymphocytes Auto (Unsp spec) [#/Vol] 1.57 10*3/uL 0.83-4.51 [facility] Basophil percentageOrdered B y: Kamla Albarado on 11-30-2022 Basophils/100 WBC (Bld) 0.4 % 0-1 [facility] Chloride [Moles/Vol] 108 mmol/L 98-107 [facility] Eosinophils/100 WBC (Bld) 1.7 % 0-5 [facility] Glucose [Mass/Vol] 110 mg/dL 74-106 [facility] Comment on above: Fasting Glucose resu lt from 100 to 125 mg/dL suggests IMPAIRED HOMEOSTASIS per A.D.A. criteria. Neutrophils (Bld) [#/Vol] 5.6 10*3/uL 2.0-7.7 [facility] Neutrophils/100 WBC (Bld) 69.2 % 47-70 [facility] Potassium [Moles/Vol] 4.1 mmol/L 3.5-5.1 [facility] Comment on above: Moderate Hemolysis, Result may be falsely increased. Sodium [Moles/Vol] 143 mmol/L 136-145 [facility] WBC (Bld) [#/Vol] 8.1 10*3/uL 4.4-11.0 [facility] Blood erythrocytes count (nu mber/volume)Ordered By: Kamla Albarado on 11-30-2022 RBC (Bld) [#/Vol] 5.27 10*6/uL 4.6-6.2 [facility] Blood hemoglobin measurement (mass/volume)Ordered By: Kamla Albarado on 11-30-2022 Hemoglobin (Bld) [Mass/Vol] 17.4 g/dL 13.0-16.5 [facility] Blood lymphocytes/100 leukoc ytesOrdered By: Kamla Albarado on 11-30-2022 Lymphocytes/100 WBC (Bld) 19.3 % 19-41 [facility] Blood monocytes/100 leukocyt esOrdered By: Kamla Albarado on 11-30-2022 Monocytes/100 WBC (Bld) 9.0 % 0-10 [facility] Blood platelet mean volumeOr dered By: Kamla Albarado on 11-30-2022 Platelet mean volume (Bld) [Entitic vol] 10.2 fL 6.2-12.0 [facility] Determination of erythrocyte mean corpuscular volume (MCV)Ordered By: Kamla Albarado on 11-30-2022 MCV (RBC) [Entitic vol] 97.2 fL 80-94 [facility] Hematocrit Auto (Bld) [Volum e fraction]Ordered By: Kamla Albarado on 11-30-2022 Hematocrit (Bld) [Volume fraction] 51.2 % 40-54 [facility] Laboratory - Chemistry and C hemistry - challengeOrdered By: Kamla Albarado on 11-30-2022 CO2 [Moles/Vol] 26.0 mmol/L 21.0-32.0 [facility] Urea nitrogen/Creatinine [Mass ratio] 12.0 mg/mg 10-20 [facility] Laboratory - Hematology and Cell countsOrdered By: Kamla Albarado on 11-30-2022 Erythrocyte distribution width (RBC) [Entitic vol] 48.7 fL 35.1-43.9 [facility] Erythrocyte distribution width (RBC) [Ratio] 13.5 % 11.6-14.6 [facility] Immature granulocytes/100 WBC (Bld) 0.400 % 0.0-0.9 [facility] Comment on above: IG% - Immature Granu locytes (promyelocytes, myelocytes and metamyelocytes) > 1% indicates that a LEFT SHIFT is Present. MCH (RBC) [Entitic mass] 33.0 pg 27.0-32.0 [facility] Nucleated RBC/100 WBC (Bld) [Ratio] 0 % 0-5 [facility] MCHC Auto (RBC) [Mass/Vol]Or dered By: Kamla Albarado on 11-30-2022 MCHC (RBC) [Mass/Vol] 34.0 g/dL 32-36 [facility] No Panel InformationOrdered By: Kamla Albarado on 11-30-2022 Estimated GFR (MDRD) Amer 66 mL/min >60 [facility] Comment on above: GFR Calc Estimated GFR (MDRD) Non-Af Amer 55 mL/min >60 [facility] Comment on above: Non- GFR Calc Platelets bldOrdered By: Davin Albarado on 11-30-2022 Platelets (Bld) [#/Vol] 217 10*3/uL 150-450 [facility] Serum or plasma calcium marguerite urement (mass/volume)Ordered By: Kamla Albarado on 11-30-2022 Calcium [Mass/Vol] 9.4 mg/dL 8.5-10.1 [facility] Serum or plasma creatinine m easurement (mass/volume)Ordered By: Kamla Albarado on 11-30-2022 Creatinine [Mass/Vol] 1.33 mg/dL 0.70-1.30 [facility] Comment on above: The validity of the calculated GFR & GFRAA in patients over 70 years has not been determined. Clinical correlation is essential. Serum or plasma urea nitroge n measurement (mass/volume)Ordered By: Kamla Albarado on 11-30-2022 Urea nitrogen [Mass/Vol] 16 mg/dL 7-18 [facility] Thin prep Papanicolaou smear with manual screeningOrdered By: Kamla Albarado on 11-30-2022 Thin prep Papanicolaou smear with manual screening 9 5-15 [facility] Basophil percentageon 2021 Chloride [Moles/Vol] 109 mmol/L 98-107 [facility] Work Phone: [phone] Glucose [Mass/Vol] 113 mg/dL 74-106 [facility] Work Phone: Comment on above: Fasting Glucose resu lt from 100 to 125 mg/dL suggests IMPAIRED HOMEOSTASIS per A.D.A. criteria. Potassium [Moles/Vol] 3.5 mmol/L 3.5-5.1 [facility] Work Phone: [phone] Comment on above: Slight Hemolysis, Re sult may be falsely increased. Sodium [Moles/Vol] 144 mmol/L 136-145 [facility] Work Phone: [phone] WBC (Bld) [#/Vol] 7.3 10*3/uL 4.4-11.0 [facility] Work Phone: [phone] Blood erythrocytes count (nu mber/volume)on 03-09-2022 RBC (Bld) [#/Vol] 4.79 10*6/uL 4.6-6.2 [facility] Work Phone: [phone] Blood hemoglobin measurement (mass/volume)on 03-09-2022 Hemoglobin (Bld) [Mass/Vol] 15.8 g/dL 13.0-16.5 [facility] Work Phone: [phone] Blood platelet mean volumeon 03-09-2022 Platelet mean volume (Bld) [Entitic vol] 10.9 fL 6.2-12.0 [facility] Work Phone: [phone] Determination of erythrocyte mean corpuscular volume (MCV)on 03-09-2022 MCV (RBC) [Entitic vol] 97.5 fL 80-94 [facility] Work Phone: [phone] Hematocrit Auto (Bld) [Volum e fraction]on 03-09-2022 Hematocrit (Bld) [Volume fraction] 46.7 % 40-54 [facility] Work Phone: [phone] Laboratory - Chemistry and C hemistry - challengeon 03-09-2022 CO2 [Moles/Vol] 28.0 mmol/L 21.0-32.0 [facility] Work Phone: [phone] Urea nitrogen/Creatinine [Mass ratio] 15.4 mg/mg 10-20 [facility] Work Phone: [phone] Laboratory - Hematology and Cell countson 03-09-2022 Erythrocyte distribution width (RBC) [Entitic vol] 48.6 fL 35.1-43.9 [facility] Work Phone: [phone] Erythrocyte distribution width (RBC) [Ratio] 13.6 % 11.6-14.6 [facility] Work Phone: [phone] MCH (RBC) [Entitic mass] 33.0 pg 27.0-32.0 [facility] Work Phone: [phone] MCHC Auto (RBC) [Mass/Vol]on 03-09-2022 MCHC (RBC) [Mass/Vol] 33.8 g/dL 32-36 [facility] Work Phone: No Panel Informationon 03-09 Estimated GFR (MDRD) Amer 68 mL/min >60 [facility] Work Phone: Comment on above: GFR Calc Estimated GFR (MDRD) Non-Af Amer 56 mL/min >60 [facility] Work Phone: Comment on above: Non- GFR Calc Platelets bldon 03-09-2022 Platelets (Bld) [#/Vol] 188 10*3/uL 150-450 [facility] Work Phone: [phone] Serum or plasma calcium marguerite urement (mass/volume)on 03-09-2022 Calcium [Mass/Vol] 9.1 mg/dL 8.5-10.1 [facility] Work Phone: [phone] Serum or plasma creatinine m easurement (mass/volume)on 03-09-2022 Creatinine [Mass/Vol] 1.30 mg/dL 0.70-1.30 [facility] Work Phone: Comment on above: The validity of the calculated GFR & GFRAA in patients over 70 years has not been determined. Clinical correlation is essential. Serum or plasma urea nitroge n measurement (mass/volume)on 03-09-2022 Urea nitrogen [Mass/Vol] 20 mg/dL 7-18 [facility] Work Phone: Thin prep Papanicolaou smear with manual screeningon 03-09-2022 Thin prep Papanicolaou smear with manual screening 7 5-15 [facility] Work Phone: CNPNon 02-07-2022 CNPN Telephone (OPHTOB) TAYLOR ARNDT ([id number]) 1940 M Date Time Provider Department 02/07/22 KRYSTA LOVETT During your visit today, we recorded the following information about you: John Vossprashant Pss 02/07/2022 4:58 PM Signed Spoke with patient and gave below message. Patient understands Call patient OCT shows no leakage Monitor yearly If he finds out name of goggles the [facility] wants [facility] to try leave me a message Allergies As of Date: 02/07/2022 Noted Allergy Reaction POISON RAJ EXTRACT 12/30/2020 4 - Hives 9 - Itching 7 - Swelling Date Reviewed: 02/07/2022 Reviewed by: Krysta Lovett OD - Fully Assessed Reason for Visit: Results [95] Prescriptions as of 02/07/2022 - allopurinol (ZYLOPRIM) 100 mg tablet Take 100 mg by mouth once daily. - atorvastatin (LIPITOR) 20 mg tablet Take 20 mg by mouth once daily. - aspirin, enteric coated (ASPIRIN, ENTERIC COATED) 81 mg EC tablet Take 81 mg by mouth once daily. - vit A/vit C/vit E/zinc/copper (PRESERVISION AREDS ORAL) Take by mouth twice daily. - beta-carotene,A,-vits C,E/mins (OCUVITE ORAL) Take by mouth one time a week. - cyclobenzaprine (FLEXERIL) 5 mg tablet Take 5 mg by mouth twice daily as needed. - lidocaine (LIDODERM) 5 % Apply 1 Patch as directed once daily. to affected area. Remove patch after 12 hours. - lisinopril 10 mg tablet Take 10 mg by mouth once daily. - ATORVASTATIN CALCIUM (LIPITOR ORAL) Take 20 mg by mouth once daily. Facility-Administered Medications as of 02/07/2022 - tropicamide 1 % 1 Drop (MYDRIACYL) - PHENYLephrine 2.5 % 1 Drop (AK-DILATE, SIXTO-SYNEPHRINE) - fluorescein-benoxinate 0.25-0.4 % 1 Drop (FLURESS) Meds Comments as of 07/30/2012: Last dose asa and ibuprofen Problem List As Of Date 02/07/2022 Noted Resolved Bone spur [M77.9] 06/26/2012 Bursitis, olecranon [M70.20] 06/26/2012 Follow-up examination following surgery [Z09] 08/06/2012 OLECRANON FX [813.01] [S52.023A] 01/13/2013 Pain in right hip [M25.551] 04/25/2015 Primary osteoarthritis of right hip [M16.11] 05/17/2015 OA (osteoarthritis) of hip [M16.9] 11/09/2015 Senile cataracts of both eyes [H25.9] 01/31/2016 05/11/2016 Age-related macular degeneration with central g*01/31/2016 10/27/2019 Cataract, nuclear sclerotic senile [H25.10] 01/31/2016 05/11/2016 [place]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] 01/31/2016 Dermatochalasis of both upper eyelids [H02.831,*01/31/2016 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ated macular degeneration, *04/24/2016 02/02/2022 Pseudophakia of both eyes [Z96.1] 05/04/2016 Trochanteric bursitis of right hip [M70.61] 12/26/2017 Hyperopia of both eyes with astigmatism and pre*03/31/2019 02/02/2022 Posterior vitreous detachment of both eyes [H43*03/31/2019 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ated macular degeneration, *10/27/2019 After-cataract of right eye with vision obscure*10/27/2019 02/02/2022 Legal blindness, 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.8] 02/07/2022 Encounter Status:Closed by JOHN ROMO on 02/07/22 Normal [facility] Metabolic Pane lam 10-06-2021 Albumin [Mass/Vol] 4.1 g/dL 3.5 - 4.6 g/dL [facility] ALP (Bld) [Catalytic activity/Vol] 81 U/L 35 - 104 U/L [facility] ALT [Catalytic activity/Vol] 23 U/L 0 - 41 U/L [facility] Anion gap [Moles/Vol] 16 mmol/L High [facility] AST [Catalytic activity/Vol] 18 U/L 0 - 40 U/L [facility] Bilirubin [Mass/Vol] 0.3 mg/dL 0.2 - 0 .7 mg/dL [facility] Calcium [Mass/Vol] 9.5 mg/dL 8.5 - 9.9 mg/dL [facility] Chloride [Moles/Vol] 102 mmol/L [facility] CO2 [Moles/Vol] 23 [facility] Creatinine [Mass/Vol] 1.09 mg/dL 0.70 - 1.20 mg/dL [facility] Free PSA/Total PSA [Mass fraction] 7.1 g/dL 6.3 - 8.0 g/dL [facility] GFR >60.0 >60 [facility] Comment on above: >60 mL/min/1.73m2 EG FR, calc. for ages 18 and older using the MDRD formula (not corrected for weight), is valid for stable renal function. GFR Non- >60.0 >60 [facility] Comment on above: >60 mL/min/1.73m2 EG FR, calc. for ages 18 and older using the MDRD formula (not corrected for weight), is valid for stable renal function. Globulin (S) [Mass/Vol] 3 g/dL 2.3 - 3.5 g/dL [facility] Glucose [Mass/Vol] 100 mg/dL High 70 - 99 mg/dL [facility] Potassium [Moles/Vol] 3.7 mmol/L [facility] Sodium [Moles/Vol] 141 mmol/L [facility] [employer] Urea nitrogen (BldV) [Mass/Vol] 22 mg/dL 8 - 23 mg/dL [facility] Lipid Panelon 10-06-2021 Cholesterol [Mass/Vol] 151 mg/dL 0 - 1 99 mg/dL [facility] Comment on above: ATP III Cholesterol classification is Desirable. Cholesterol in HDL [Mass/Vol] 32 mg/dL Low 40 - 59 mg/dL [facility] Comment on above: ATP III HDL Cholestr ol Classification is low. Expected Values: Males: >55 = No Risk 35-55 = Moderate Risk <35 = High Risk Females: >65 = No Risk 45-65 = Moderate Risk <45 = High Risk NCEP Guidelines: Third Report November 2000 >59 = negative risk factor for CHD <40 = major risk factor for CHD Cholesterol in LDL [Mass/Vol] 52 mg/dL 0 - 129 mg/dL [facility] [employer] Comment on above: ATP III LDL Classifi cation is Optimal. Triglyceride [Mass/Vol] 335 mg/dL High 0 - 150 mg/dL [facility] Comment on above: ATP III Triglyceride s Classification is High. No Panel Informationon 10-06 Interpretation and review of laboratory results Abnormal [facility] Uric Acidon 10-06-2021 Urate [Mass/Vol] 6.4 mg/dL 3.4 - 7.0 mg/dL [facility] XR ELBOW RIGHT (MIN 3 VIEWS) Ordered By: Jun Aguilar on 02-24-2021 NO ACUTE FRACTURES [facility] Phone: EXAMINATION: XR ELBO W RIGHT (MIN 3 VIEWS) CLINICAL HISTORY: Right elbow swelling and pain COMPARISONS: June 14, 2012 FINDINGS: Four views of the right elbow are submitted. No acute fractures. No dislocations. No focal bony abnormalities [facility] Phone: Chris, po Incoming Radiant Results From [employer] - 02/24/2021 8:37 PM EDT EXAMINATION: XR ELBOW RIGHT (MIN 3 VIEWS) CLINICAL HISTORY: Right elbow swelling and pain COMPARISONS: June 14, 2012 FINDINGS: Four views of the right elbow are submitted. No acute fractures. No dislocations. 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 Chief Complaint f/u Stable right elbow, status post olecranon bursal excision with large gouty tophi. History of Present IllnessMrThai Arndt is here today for a recheck of his right elbow. He is 3-1/2-weeks out from a right olecranon bursal excision with large gouty tophi. He was given an elbow T-scope brace at his previous visit and comes in today wearing no brace. He states the elbow feels great and he has had no issues since his followup. He is here today for recheck. Active Problems Problems Abscess of bursa of right elbow (727.89) (M71.021) Elbow pain (719.42) (M25.529) Allergies Medication No Known Drug Allergies Recorded By: Sandra Wheat; 12/30/2020 10:22:37 AM Current Meds Medication NameInstruction HYDROcodone-Acetaminoph en 5-325 MG Oral TabletTAKE 1 TABLET Every 6 hours PRN pain Sulfamethoxazole-Trimet hoprim 800-160 MG Oral TabletTake 1 tab every 12 hours for 7 days Physical Exam On physical exam today, the wound is healing very nicely. No swelling. He has full range of motion of the elbow and supinates and pronates well. Some mild tenderness with deep palpation. He denies any numbness or tingling distally. Health Management He is doing well and already weaned himself out of the brace. I have urged him to go slow with return to activity. He should continue to avoid direct pressure for the next few weeks. He has an appointment next month to see Dr. Lewis, who recommended following up with her for any medical management of his underlying gout. We would be happy to see him back if he should have any issues. Otherwise, he can follow up on a p.r.n. basis. All questions were answered with the patient. He denies the need to see Dr. Dennis Bunn. 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 Chief Complaint Post Op for RT Elbow Irrigation and Debridement on 01/03/21. History of Present IllnessMr. Hair is here for his right elbow. He is now 1-week from a right elbow bursal excision. It was a large gouty tophi. He states he is doing better and his pain is minimal. Active Problems Problems Abscess of bursa of right elbow (727.89) (M71.021) Elbow pain (719.42) (M25.529) Allergies Medication No Known Drug Allergies Recorded By: Sandra Wheat; 12/30/2020 10:22:37 AM Current Meds Medication NameInstruction HYDROcodone-Acetaminoph en 5-325 MG Oral TabletTAKE 1 TABLET Every 6 hours PRN pain Sulfamethoxazole-Trimet hoprim 800-160 MG Oral TabletTake 1 tab every 12 hours for 7 days Physical Exam On exam, the wound is clear. No sign of any redness or warmth. Sutures are removed today and Steri-Strips are applied. He has decent motion from 0 to 100 degrees already. He can supinate and pronate well. No pain with resisted station installer and repairer maneuver. He is neurovascularly intact throughout. Results/Data Radiology: None today. Health Management I have urged him to follow up with his PCP regarding gout treatment, as he is at risk to have further tophi develop. At this point, his wound is healing well. We did remove his sutures and we are going to limit his motion for the first few weeks in a brace. He can shower and get the wound wet daily and then redress with an darlene wrap and support. He will avoid any direct trauma to the elbow. He will follow up in 2-3 weeks for a wound check at that time; and if doing well, we can open his brace up fully and begin to wean out further. All questions are answered today with the patient. Signatures Electronically signed by : Verónica Oliva, ; Jan 11 2021 8:05PM EST (Fire Alarm Repairer/Recor rocky) Electronically signed by : Zak Bunn MD; Jan 13 2021 8:33AM EST Normal [facility] Culture, Surgicalon 01-04-20 Culture, Surgical ORDER#: [id number] ORDERED BY: ZAK BUNN SOURCE: Elbow Swab COLLECTED: 01/03/21 12:23 ANTIBIOTICS AT MURALI.: RECEIVED : 01/03/21 13:24 Gram Stain Direct FINAL 01/04/21 14:47 No WBC's, No organisms seen Culture, Anaerobic FINAL 01/06/21 08:56 No Anaerobes Isolated Culture, Surgical FINAL 01/07/21 08:39 No growth 72 hours Normal [facility] Comment on above: Performed By: #### C XSRG #### [facility] [address] [place] [address] EKG 12 LeadOrdered By: Nacho Bunn on 01-03-2021 Atrial Rate 81 BPM [employer] Phone: P [place] 46 degrees [employer] Phone: P-R Interval 156 ms [employer] Phone: Q-T Interval 350 ms [employer] Phone: QRS Duration 78 ms [employer] Phone: QTc Calculation (Bazett) 406 ms [employer] Phone: R [place] -13 degrees [employer] Phone: T [place] 136 degrees [employer] Phone: Ventricular Rate 81 BPM [employer] Phone: Normal sinus rhythm Left ventricular hypertrophy with repolarization abnormality Inferior infarct , age undetermined Abnormal ECG No previous ECGs available Confirmed by ROBERT MARTINEZ ([id number]) on 01/03/2021 10:52:49 AM [facility] Phone: Chris, Chpo Incoming Results From [place] - 01/03/2021 10:52 AM EDT Normal sinus rhythm Left ventricular hypertrophy with repolarization abnormality Inferior infarct , age undetermined Abnormal ECG No previous ECGs available Confirmed by ROBERT MARTINEZ ([id number]) on 01/03/2021 10:52:49 AM [facility] Work Phone: [facility] Work Phone: No Panel Informationon 01-03 Normal [facility] Work Phone: [facility] Work Phone: OPERATIVE REPORTon OPERATIVE REPORT [address] [address] OPERATIVE REPORT PATIENT NAME: TAYLOR ARNDT : 1940 MED REC NO: [id number] ROOM: ACCOUNT NO: [id number] ADMIT DATE: 01/03/2021 PROVIDER: Zak Bunn MD DATE OF PROCEDURE: 01/03/2021 LOCATION: [facility]. 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 OPERATIONS PERFORMED: 1. Open irrigation and debridement of right elbow open wound. 2. Open excision of right elbow olecranon bursa. SURGEON: Zak Bunn MD SUPERVISOR BLOOD: Radha Campa PA-C was present throughout the entire case. Given the nature of the disease process and the procedure, a skilled surgical supervisor was necessary during the case. The workers compensation claims assistant was necessary to hold retractors and manipulate the extremity during the procedure. A certified personal finance counselor was at the back table managing the instruments and supplies for the surgical case. ANESTHESIA: Block plus IV sedation. COMPLICATIONS: None. EBL: Minimal. INDICATIONS: The patient is an 80-year-old male with history of significant gout. He developed large tophi within the olecranon bursa and a persistent draining wound. Risks and benefits of open irrigation and debridement as well as bursal excision were noted with the patient's family. These include infection, stiffness, nerve damage, continued pain and deformity as well as need for subsequent operations. We discussed the high risk of recurrent gouty tophi if his gout was not adequately controlled medically. Understanding these options and limitations, he elected to proceed. Informed consent was obtained prior to arrival in the operating room. OPERATIVE PROCEDURE: Upon arrival, the patient was identified. He was transported from a stretcher to operating table in the supine position. A block and IV anesthetic administered by the Anesthesia staff. Prior to start of the case, 2 gm of Ancef was given intravenously. The tourniquet was placed about the right upper arm. The right arm was prepped and draped in usual sterile fashion. The arm was exsanguinated and the tourniquet was inflated to 250 mmHg. Standard posterior approach to the right elbow was utilized. The incision was carried through the subcutaneous tissue. Hemostasis was obtained. Care was taken to elevate flaps with further damage to the skin. The gouty tophi was obvious with drainage noted. Cultures x2 were sent from the olecranon bursa as was a tissue specimen. We were able to fully excise the bursa from the olecranon bone beneath. Again, the bursa was filled with tophus material which appeared to erode into the bone as well as the triceps tendon insertion. Two smaller distal tophi along the olecranon were also elevated and removed with remaining bursa. At this point, the wound was copiously irrigated with sterile saline. Any of his remaining visible tophus material was removed and subcutaneous tissues closed with 2-0 Vicryl. Skin edges were then approximated with 3-0 nylon suture. All sponge and needle counts were correct prior to closure. Sterile dressing was applied. He was placed into a well-padded splint. He has awoken from anesthetic and taken to the recovery room in stable condition. ZAK BUNN MD ALIYA/[email or web address] Doc#: [id number] CC: Normal [facility] Surgical Specimenon 01-04-20 Surgical Specimen [facility] [address] [place], [place] [id number] FINAL SURGICAL PATHOLOGY REPORT Patient Name: TAYLOR ARNDT Accession No: [id number] Age Sex: 1940 Location: [facility] Account No: [id number] Collected: 01/03/2021 [facility] Rec No: [id number] Received: 01/03/2021 Attend Phys: ZAK BUNN Completed: 01/04/2021 Perform Phys: ZAK ONI FINAL DIAGNOSIS: RIGHT ELBOW BURSA: GOUTY BURSITIS SHAWMO/SHAWMO CLINICAL INFORMATION: Procedure: Right elbow irrigation and debridement. Preoperative Diagnosis: Right elbow septic bursitis. SPECIMEN: Right Elbow Bursa GROSS DESCRIPTION: Received is one container labeled with the patient's name and designated elbow. The specimen is received in formalin fixative and consists of two portions of rubbery tissue with a chalky white appearance. The portions of tissue are 3.4 cm in greatest dimension and 4 x 2.5 x 0.7 cm. A smear of the white chalky material is made and this smear shows needle shaped crystals consistent with gout. Food Services Director sections of the tissue are submitted in four cassettes. MICKY/MICKY CPT: 28940 X1 J KALANI FUNEZ M.D. 01/04/2021 Electronically signed out by Page 1 of 1 Invalid Interpretation Code [facility] Comment on above: Performed By: #### S UR #### [facility] [address] [place] [address] Basic Metabolic Panelon 12-07 GFR >60.0 Normal >60 [facility] Comment on above: Result Comment: >60 mL/min/1.73m2 EGFR, calc. for ages 18 and older using the MDRD formula (not corrected for weight), is valid for stable renal function. Performed By: #### B MP #### [facility] [address] [place] [address] GFR/1.73 sq M.predicted among blacks MDRD (S/P/Bld) [Vol rate/Area] mL/min/{1.73_m2} Normal >60 [facility] Comment on above: Result Comment: >60 mL/min/1.73m2 EGFR, calc. for ages 18 and older using the MDRD formula (not corrected for weight), is valid for stable renal function. Performed By: #### B MP #### [facility] [address] [place] [address] Urea nitrogen [Mass/Vol] 21 mg/dL Normal 8-23 [facility] Comment on above: Performed By: #### B MP #### [facility] [address] [place] [address] Basic Metabolic PanelOrdered By: Zak Bunn on 12-30-2020 Anion gap [Moles/Vol] 14 mmol/L Normal 9-15 [facility] [employer] Work Phone: Comment on above: Performed By: #### B MP #### [facility] [address] [place] [address] Calcium [Mass/Vol] 9.4 mg/dL Normal 8.5-9.9 [facility] [employer] Work Phone: Comment on above: Performed By: #### B MP #### [facility] [address] [place] [address] Chloride [Moles/Vol] 102 mmol/L Normal 95-107 [facility] [employer] Work Phone: Comment on above: Performed By: #### B MP #### [facility] [address] [place] [address] CO2 [Moles/Vol] 23 mmol/L Normal 20-31 [facility] Work Phone: Comment on above: Performed By: #### B MP #### [facility] [address] [place] [address] Creatinine [Mass/Vol] 0.97 mg/dL Normal 0.70-1.20 [facility] [employer] Work Phone: Comment on above: Performed By: #### B MP #### [facility] [address] [place] [address] Glucose [Mass/Vol] 176 mg/dL Critically high 70-99 M [facility] [employer] Work Phone: Comment on above: Performed By: #### B MP #### [facility] [address] [place] [address] Potassium [Moles/Vol] 3.4 mmol/L Normal 3.4-4.9 [facility] [employer] Phone: Comment on above: Performed By: #### B MP #### [facility] [address] [place] [address] Sodium [Moles/Vol] 139 mmol/L Normal 135-144 [facility]: Comment on above: Performed By: #### B MP #### [facility] [address] [place] [address] GFR >60.0 >60 [employer] Phone: Comment on above: >60 mL/min/1.73m2 EG FR, calc. for ages 18 and older using the MDRD formula (not corrected for weight), is valid for stable renal function. GFR Non- >60.0 >60 [facility] Phone: Comment on above: >60 mL/min/1.73m2 EG FR, calc. for ages 18 and older using the MDRD formula (not corrected for weight), is valid for stable renal function. Interpretation and review of laboratory results Abnormal [facility] Phone: Urea nitrogen (BldV) [Mass/Vol] 21 mg/dL 8 - 23 mg/dL [facility]: [facility] Phone: CBCOrdered By: Zak Graham i on 12-30-2020 Hematocrit (Bld) [Volume fraction] 45.6 % 42.0 - 52.0 % [employer] Phone: Hemoglobin.gastrointest inal spec 1 Ql (Stl) 15.7 g/dL 14.0 - 18.0 g/dL [facility] Phone: Interpretation and review of laboratory results Abnormal [employer] Phone: MCH (RBC) [Entitic mass] 33.2 pg High 27.0 - 31.3 pg [employer] Phone: MCHC (RBC) [Mass/Vol] 34.4 % 33.0 - 37.0 % [employer] Phone: MCV (RBC) [Entitic vol] 96.4 fL 80.0 - 100.0 fL [employer] Phone: Platelet distribution width (Bld) [Ratio] 14.7 % High 11.5 - 14.5 % [employer] Phone: Platelets (Bld) [#/Vol] 232 10*3/uL 130 - 400 K/uL [employer] Phone: RBC (Bld) [#/Vol] 4.73 10*6/uL [employer] Phone: WBC (Bld) [#/Vol] 8.1 10*3/uL 4.8 - 10.8 K/uL [employer] Phone: [employer] Phone: CBC With Platelet No Differe ntialon 12-30-2020 Erythrocyte distribution width (RBC) [Ratio] 14.7 % Critically high 11.5-14.5 [facility] Comment on above: Performed By: #### C BCND #### [facility] [address] [place] [address] Hematocrit (Bld) [Volume fraction] 45.6 % Normal 42.0-52.0 [facility] Comment on above: Performed By: #### C BCND #### [facility] [address] [place] [address] Hemoglobin (Bld) [Mass/Vol] 15.7 g/dL Normal 14.0-18.0 [facility] Comment on above: Performed By: #### C BCND #### [facility] [address] [place] [address] MCH (RBC) [Entitic mass] 33.2 pg Critically high 27.0-31.3 [facility] Comment on above: Performed By: #### C BCND #### [facility] [address] [place] [address] MCHC 34.4 % Normal 33.0-37.0 [facility] Comment on above: Performed By: #### C BCND #### [facility] [address] [place] [address] MCV (RBC) [Entitic vol] 96.4 fL Normal 80.0-100.0 M [facility] Comment on above: Performed By: #### C BCND #### [facility] [address] [place] [address] Platelets (Bld) [#/Vol] 232 10*3/uL Normal 130-400 [facility] Comment on above: Performed By: #### C BCND #### [facility] [address] [place] [address] RBC (Bld) [#/Vol] 4.73 10*6/uL Normal 4.70-6.10 [facility] Comment on above: Performed By: #### C BCND #### [facility] [address] [place] [address] WBC (Bld) [#/Vol] 8.1 10*3/uL Normal 4.8-10.8 [facility] Comment on above: Performed By: #### C BCND #### [facility] [address] [place] [address] Culture, Wound Aerobicon Culture, Wound Aerobic ORDER#: [id number] ORDERED BY: JEANETH LEWIS SOURCE: Wound No site given COLLECTED: 12/30/20 20:05 ANTIBIOTICS AT MURALI.: RECEIVED : 12/30/20 21:00 Gram Stain Direct FINAL 12/31/20 09:29 Rare WBC's No organisms seen Culture, Wound Aerobic FINAL 01/02/21 09:33 Mixed skin adilene Rare growth No further workup Normal [facility] Comment on above: Performed By: #### C XWND #### [facility] [address] [place] [id number] Established Visit (Orthopaed ic Surgery)on 12-30-2020 Established Visit (Orthopaedic Surgery) Diagnoses/Problems Recurrent right elbow septic bursitis. Orders Abscess of bursa of right elbow, Elbow pain Start: Sulfamethoxazole-Trimet hoprim 800-160 MG Oral Tablet (Bactrim DS); Take 1 tab every 12 hours for 7 days Elbow pain Xray Elbow Complete Min 3 View; Status:Complete; Done: 30Dec2020 10:25AM Laterality : Right Radiologist to Determine Optimal Study : Y What are the patient's signs and symptoms? : pain Chief Complaint Rt elbow pain and swelling asp with pcp this am xrays today History of Present IllnessMr. Hair is here for his right elbow. He had some drainage on the elbow over the last few days. He has had a history of gout and previous trouble with this elbow as well. He denies any recent trauma. He is right-hand dominant. Here today as a new patient. Active Problems Problems Abscess of bursa of right elbow (727.89) (M71.021) Elbow pain (719.42) (M25.529) Past Medical History Orthopedic history from today is reviewed and signed. Allergies Medication No Known Drug Allergies Recorded By: Sandra Wheat; 12/30/2020 10:22:37 AM Current Meds Medication NameInstruction Sulfamethoxazole-Trimet hoprim 800-160 MG Oral Tablet (Bactrim DS)Take 1 tab every 12 hours for 7 days Physical Exam This is a pleasant 80-year-old in no apparent distress. He has an obvious septic bursa in the right elbow. There is a mild amount of purulent discharge with palpation. Some gouty tophi are palpable as well. He has decent elbow motion with flexion and extension maintained. No redness or streaking proximally. No numbness or tingling noted. Skin is otherwise clear. Results/Data X-rays of the right elbow show some osteophytes toward the olecranon tip. Mild degenerative change only. Health Management He has had several episodes of this bursa flaring up and has a history of gout which may be a cause of this as well. At this point, however, he is having some discharge and I would recommend formal irrigation and debridement. We are going to start him on some antibiotics over the weekend he will call the hotline sooner if having any worsening pain or redness. We also instructed him on daily wound care with a sterile dressing. We will proceed next week with open irrigation and debridement. He understands he may be in a splint for the first week. He will follow up at that point for a wound check. He denied the need for pain medicine or other restrictions. All questions were answered today. Signatures Electronically signed by : Liz Torres, ; Jan 02 2021 10:43AM EST (Fire Alarm Repairer/Recor rocky) Electronically signed by : Zak Bunn MD; Jan 02 2021 10:51AM EST Normal [facility] No Panel Informationon 12-30 139 {mEq/L} Normal 135-144 -[facility] Work Phone: 23 {mEq/L} Normal 20-31 -[facility] Work Phone: [phone] {mEq/L} Normal 95-107 -[facility] Work Phone: [phone] mg/dL Normal 8-23 -[facility] Work Phone: {mEq/L} Normal 9-15 -[facility] Work Phone: [phone] 9.4 mg/dL Normal 8.5-9.9 -[facility] Work Phone: [phone] >60.0 Normal >60 -[facility] Work Phone: [phone] Comment on above: >60 mL/min/1.73m2 EG FR, calc. for ages 18 and older using theMDRD formula (not corrected for weight), is valid for stablerenal function. 0.97 mg/dL Normal 0.70-1.20 -[facility] Work Phone: [phone] mg/dL above high threshold 70-99 [facility] [place] Work Phone: 3.4 {mEq/L} Normal 3.4-4.9 -[facility] [place] Work Phone: [phone] 232 K/uL Normal 130-400 [facility] [place] Work Phone: [phone] 14.7 % above high threshold 11.5-14.5 -[facility] [place] Work Phone: [phone] 34.4 % Normal 33.0-37.0 -[facility] [place] Work Phone: 33.2 pg above high threshold 27.0-31.3 [facility] [place] Work Phone: 96.4 fL Normal 80.0-100.0 [facility] [place] Work Phone: 45.6 % Normal 42.0-52.0 [facility] [place] Work Phone: [phone] 15.7 g/dL Normal 14.0-18.0 [facility] [place] Work Phone: 4.73 {M/uL} Normal 4.70-6.10 [facility] [place] Work Phone: [phone] 8.1 K/uL Normal 4.8-10.8 [facility] Work Phone: Radiologyon 12-30-2020 XR Elbow 3 Views Normal [facility] DO Work Phone: Basic Metabolic Panelon 08-08 Anion gap [Moles/Vol] 21 mmol/L On license of [facility] [employer] Work Phone: Calcium [Mass/Vol] 9.3 mg/dL 8.5 - 9.9 mg/dL [facility] [employer] Work Phone: Chloride [Moles/Vol] 100 mmol/L [facility] [employer] Work Phone: CO2 [Moles/Vol] 21 mmol/L [facility] Work Phone: Creatinine [Mass/Vol] 1.07 mg/dL 0.7 - 1.2 mg/dL [facility] Phone: GFR >60.0 >60 [employer] Phone: Comment on above: >60 mL/min/1.73m2 EG FR, calc. for ages 18 and older using the MDRD formula (not corrected for weight), is valid for stable renal function. GFR Non- >60.0 >60 [employer] Phone: Comment on above: >60 mL/min/1.73m2 EG FR, calc. for ages 18 and older using the MDRD formula (not corrected for weight), is valid for stable renal function. Glucose [Mass/Vol] 88 mg/dL 70 - 99 mg/dL [facility] Phone: Potassium [Moles/Vol] 3.8 mmol/L [facility] [employer] Phone: Sodium [Moles/Vol] 142 mmol/L [facility] Phone: Urea nitrogen [Mass/Vol] 17 mg/dL 8 - 23 mg/dL [facility] Phone: Lipid Panelon 08-19-2019 Cholesterol [Mass/Vol] 167 mg/dL 0 - 1 99 mg/dL [facility] Phone: Comment on above: ATP III Cholesterol classification is Desirable. Cholesterol in HDL [Mass/Vol] 35 mg/dL Low 40 - 59 mg/dL [employer] Phone: Comment on above: ATP III HDL Cholestr ol Classification is low. Expected Values: Males: >55 = No Risk 35-55 = Moderate Risk <35 = High Risk Females: >65 = No Risk 45-65 = Moderate Risk <45 = High Risk NCEP Guidelines: Third Report November 2000 >59 = negative risk factor for CHD <40 = major risk factor for CHD Cholesterol in LDL [Mass/Vol] 57 mg/dL 0 - 129 mg/dL [employer] Phone: Comment on above: ATP III LDL Classifi cation is Optimal. Triglyceride [Mass/Vol] 375 mg/dL High 0 - 150 mg/dL [employer] Phone: Comment on above: ATP III Triglyceride s Classification is High. Otheron 08-19-2019 Interpretation and review of laboratory results Abnormal [employer] Phone: C Bloodon 06-03-2018 C Blood Final Report: No eusebio wth at 5 Days Normal [facility] Comment on above: Performed By: #### 2 [id number] ####[facility] [employer] [id number] [place] [address] Auto Diffon 05-29-2018 Basophils Auto #/vol (Bld) 0.1 E3/mcL Normal 0.0-0.2 [facility] Comment on above: Order Comment: Order Added by Discern Expert. Performed By: #### 2 [id number] ####VICK [id number] [place] [address] Basophils/100 WBC Auto (Bld) 1.1 % Normal 0.0-2.0 [facility] Comment on above: Order Comment: Order Added by Discern Expert. Performed By: #### 2 [id number] ####VICK [id number] [place] [address] Eos Absolute 0.1 E3/mcL Normal 0.0-0.7 [facility] Comment on above: Order Comment: Order Added by Discern Expert. Performed By: #### 2 [id number] ####VICK [id number] [place] [address] Eosinophils/100 WBC Auto (Bld) 0.8 % Normal 0.0-11.0 [facility] Comment on above: Order Comment: Order Added by Discern Expert. Performed By: #### 2 [id number] ####VICK [id number] [place] [address] Lymphocytes Auto #/vol (Bld) 1.5 E3/mcL Normal 1.2-3.4 [facility] Comment on above: Order Comment: Order Added by Discern Expert. Performed By: #### 2 [id number] ####VICK [address] [place] [address] Lymphocytes/100 WBC Auto (Bld) 12.2 % Low 20.0-55.0 [facility] Comment on above: Order Comment: Order Added by Discern Expert. Performed By: #### 2 [id number] ####VICK [address] [place] [address] [place] Absolute 1.1 E3/mcL High 0.0-0.7 [facility] Comment on above: Order Comment: Order Added by Discern Expert. Performed By: #### 2 [id number] ####VICK [address] [place] [address] Monocytes/100 WBC Auto (Bld) 9.0 % Normal 0.0-10.0 [facility] Comment on above: Order Comment: Order Added by Discern Expert. Performed By: #### 2 [id number] ####VICK [address] [place] [address] Neutro Absolute 9.5 E3/mcL High 1.4-6.5 [facility] Comment on above: Order Comment: Order Added by Discern Expert. Performed By: #### 2 [id number] ####VICK [address] [place] [address] Neutro Auto 76.9 % High 37.0-75.0 [facility] Comment on above: Order Comment: Order Added by Discern Expert. Performed By: #### 2 [id number] ####VICK [id number] [place] [address] BMPon 05-29-2018 Anion gap 3 molar conc 13 mmol/L Normal 10-20 [facility] Comment on above: Performed By: #### 2 [id number] ####VICK FiiQeni2052 [place] [address] Calcium mass conc 9.1 mg/dL Normal 8.6-10.3 [facility] Comment on above: Performed By: #### 2 [id number] ####VICK RmiBhgj9592 [place] [address] Chloride molar conc 104 mmol/L Normal 98-107 [facility] Comment on above: Performed By: #### 2 [id number] ####VICK MrbAtlb6623 [place] [address] CO2 molar conc 25.0 mmol/L Normal 21.0-32.0 [facility] Comment on above: Performed By: #### 2 [id number] ####VICKTaiwo OwensXygDvwb6214 [place] [address] Creatinine mass conc 1.2 mg/dL Normal 0.5-1.3 [facility] Comment on above: Performed By: #### 2 [id number] ####VICKTaiwo McmillanLdzIbbl0112 [place] [address] Glucose mass conc 108 mg/dL High 70-99 [facility] Comment on above: Performed By: #### 2 [id number] ####VICK KyuCpyk8530 [place] [address] Potassium molar conc 3.9 mmol/L Normal 3.5-5.3 [facility] Comment on above: Performed By: #### 2 [id number] ####VICK CevZnzs3907 [place] [address] Sodium molar conc 138 mmol/L Normal 136-145 [facility] Comment on above: Performed By: #### 2 [id number] ####VICK WfmVxjd8362 [place] [address] Urea nitrogen mass conc 25 mg/dL High 6-23 [facility] Comment on above: Performed By: #### 2 [id number] ####VICKTaiwo McmillanDtmNxcr7803 [place] [address] Urea nitrogen/Creatinine mass ratio 20.8 ratio Normal 5.4-30.0 [facility] Comment on above: Performed By: #### 2 [id number] ####VICKTaiwo McmillanYpwIkah2368 [place] [address] CBC w/ Auto Diffon 8 Erythrocyte distribution width Auto Ratio (RBC) 13.9 % Normal 11.5-14.5 [facility] Comment on above: Performed By: #### 2 [id number] ####VCIKTaiwo McmillanTjbMmlh4248 [place] [id number] Hematocrit Auto Volume Fraction (Bld) 50.1 % Normal 42.0-52.0 [facility] Comment on above: Performed By: #### 2 [id number] ####VICK Hendersono[address] [place] [id number] Hemoglobin mass conc (Bld) 17.1 g/dL Normal 13.5-18.0 [facility] Comment on above: Performed By: #### 2 [id number] ####VICK McmillanMddXozv5850 [place] [address] MCH Auto Entitic mass (RBC) 33.9 pg High 27.0-31.0 [facility] Comment on above: Performed By: #### 2 [id number] ####VICK [address] [place] [address] MCHC Auto mass conc (RBC) 34.1 g/dL Normal 33.0-37.0 [facility] Comment on above: Performed By: #### 2 [id number] ####VICK [address] [place] [address] MCV Auto Entitic volume (RBC) 99.4 fL Normal 78.0-100.0 [facility] Comment on above: Performed By: #### 2 [id number] ####VICK [address] [place] [id number] Platelet mean volume Auto Entitic volume (Bld) 8.5 fL Normal 7.4-11.0 [facility] Comment on above: Performed By: #### 2 [id number] ####VICK McmillanAstQfnx8117 [place] [address] Platelets Auto #/vol (Bld) 224 E3/mcL Normal 130-400 [facility] Comment on above: Performed By: #### 2 [id number] ####VICK McmillanUtqOrue6656 [place] [id number] RBC Auto #/vol (Bld) 5.04 E6/mcL Normal 3.90-6.10 [facility] Comment on above: Performed By: #### 2 [id number] ####VICK McmillanThbFoxr2178 [place] [id number] WBC Auto #/vol (Bld) 12.3 E3/mcL High 3.6-11.0 [facility] Comment on above: Performed By: #### 2 [id number] ####VICK OxjDldc5388 [place] [address] CRPon 05-29-2018 CRP mass conc 7.00 mg/dL High 0.00-1.00 [facility] Comment on above: Performed By: #### 2 [id number] ####VICK EcnXfjy1578 [place] [address] Sed Rate Automatedon 018 Sed Rate Automated 49 mm/hr Normal [facility] Comment on above: Result Comment: AGE- SPECIFIC REFERENCE RANGES FOR SEDIMENTATION RATE AUTOMATED REFERENCE RANGE - MM/HR AGE MEN WOMEN 0-2 0-2 - PUBERTY 3-13 3-13 PUBERTY - 50 YRS 0-15 0-20 > 50 YRS 0-20 0-30 Performed By: #### 1 [id number] ####VICK Hematology Manual Zvaxlwcjbk9[address] [place] [address] XR Elbow 3+ Views Lefton XR Elbow 3+ Views Left Exam Date/Time:05/29/2018 19:50 ESTReason for Exam:Pain, Non TraumaticReportSTUDY:XR Elbow 3+ Views Left; 05/29/2018 7:50 pmINDICATION:Pain, Non Traumatic.COMPARISON:No [place]. [address]ORDERING CLINICIAN:Lukas BillyFINDINGS:Ther e is soft tissue swelling about the elbow. There is no effusion. There is no evidence of a fracture. A large enthesophyte is identified at the triceps insertion on the olecranon which may be fragmented. There is no significant joint space narrowing or osteophytosis.IMPRESSIO N:Nonspecific soft tissue swelling about the elbow especially posteriorly.Large enthesophyte at the triceps insertion on the olecranon which appears fragmented. FINAL REPORT Dictated: 05/29/2018 8:42 pm Alvaro Lombardo MDigned (Electronic Signature): 05/29/2018 8:42 pmSigned by: Gabe Lombardo MD Technologist: [facility] Normal [facility] eGFRon 05-29-2018 eGFR AA >60 Normal [facility] Comment on above: Order Comment: Order added by Discern Expert. Performed By: #### 1 [id number] ####VICK HluLvtr7244 [place] [address] GFR/1.73 sq M predicted among non-blacks MDRD vol rate/area (S/P/Bld) mL/min/{1.73_m2} Normal [facility] Comment on above: Order Comment: Order added by Discern Expert. Performed By: #### 1 [id number] ####VICK WvxWwpy4390 [place] [address] OCT MACULA CIRRUS OU (BOTH E YES) [facility] Vital Signs Date Time Vital Sign Value Performing Clinician Facility 02-02-2025 09:40-0400 Body height 162.56 cm Frankie Cr MD Work Phone: [facility] 02-02-2025 09:40-0400 Body mass index (BMI) [Ratio] 36.8 kg/m2 Frankie Cr MD Work Phone: [facility] 02-02-2025 09:40-0400 Body weight 97.29 kg Frankie Cr MD Work Phone: [facility] 10-01-2024 15:17-0400 Body height 162.56 cm Out [facility] 10-01-2024 15:17-0400 Body mass index (BMI) [Ratio] 37.2 kg/m2 [facility] 10-01-2024 15:17-0400 Body weight 98.42 kg Out Town [facility] 10-01-2024 15:17-0400 Diastolic blood pressure 73 mm[Hg] [facility] 10-01-2024 15:17-0400 Heart rate 91 /min [facility] 10-01-2024 15:17-0400 Respiratory rate 16 /min [facility] 10-01-2024 15:17-0400 Systolic blood pressure 135 mm[Hg] Out [facility] 04-30-2024 09:13-0400 Body height 162.6 cm Deanna Mejias CONTINUOUS DRIER HELPER Work Phone: [facility] 04-30-2024 09:13-0400 Body mass index (BMI) [Ratio] 36.56 kg/m2 Deanna Phillipseri CONTINUOUS DRIER HELPER Work Phone: [facility] 04-30-2024 09:13-0400 Body temperature 97.59 [degF] Deanna Phillipseri CONTINUOUS DRIER HELPER Work Phone: [facility] 04-30-2024 09:13-0400 Body weight 96.62 kg Deanna Phillipseri CONTINUOUS DRIER HELPER Work Phone: [facility] 04-30-2024 09:13-0400 Diastolic blood pressure 72 mm[Hg] Deanna Phillipseri CONTINUOUS DRIER HELPER Work Phone: [facility] 04-30-2024 09:13-0400 Heart rate 60 /min Deanna Phillipseri CONTINUOUS DRIER HELPER Work Phone: [facility] 04-30-2024 09:13-0400 SaO2% (BldA) [Mass fraction] 94 % Deanna Phillipseri CONTINUOUS DRIER HELPER Work Phone: [facility] 04-30-2024 09:13-0400 Systolic blood pressure 115 mm[Hg] Deanna Phillipseri CONTINUOUS DRIER HELPER Work Phone: [facility] 12-10-2022 07:03-0400 Body height 162.56 cm Out [facility] 12-10-2022 07:03-0400 Body weight 97.97 kg Out [facility] 12-07-2022 09:27-0400 Body mass index (BMI) [Ratio] 37 kg/m2 Out [facility] 10-22-2022 08:58-0400 Body mass index (BMI) [Ratio] 37 kg/m2 Out [facility] 10-22-2022 08:58-0400 Body weight 97.97 kg Out [facility] 10-22-2022 08:58-0400 Diastolic blood pressure 85 mm[Hg] [facility] 10-22-2022 08:58-0400 Heart rate 64 /min Out [facility] 10-22-2022 08:58-0400 Respiratory rate 18 /min Out [facility] 10-22-2022 08:58-0400 SaO2% (BldA) [Mass fraction] 96 % [facility] 10-22-2022 08:58-0400 Systolic blood pressure 141 mm[Hg] [facility] 03-19-2022 16:02-0400 Body temperature 97.8 [degF] [facility] Work Phone: 03-19-2022 16:02-0400 Diastolic blood pressure 87 mm[Hg] [facility] Work Phone: 03-19-2022 16:02-0400 Heart rate 80 /min [facility] Work Phone: 03-19-2022 16:02-0400 Respiratory rate 16 /min [facility] Work Phone: 03-19-2022 16:02-0400 SaO2% (BldA) [Mass fraction] 98 % [facility] Work Phone: 03-19-2022 16:02-0400 Systolic blood pressure 142 mm[Hg] [facility] Work Phone: 03-19-2022 15:15-0400 Inhaled oxygen flow rate 1 L/min [facility] Work Phone: 03-19-2022 10:00-0400 Body height 162.56 cm [facility] Work Phone: 03-19-2022 10:00-0400 Body mass index (BMI) [Ratio] 34.8 kg/m2 [facility] Work Phone: 03-19-2022 10:00-0400 Body weight 92 kg [facility] Work Phone: 03-09-2022 14:52-0400 Body mass index (BMI) [Ratio] 36.6 kg/m2 [facility] Work Phone: 03-09-2022 14:52-0400 Body weight 96.84 kg [facility] Work Phone: 03-09-2022 14:52-0400 Diastolic blood pressure 70 mm[Hg] [facility] Work Phone: 03-09-2022 14:52-0400 Heart rate 80 /min [facility] Work Phone: 03-09-2022 14:52-0400 Respiratory rate 16 /min [facility] Work Phone: 03-09-2022 14:52-0400 Systolic blood pressure 120 mm[Hg] [facility] Work Phone: 01-31-2022 08:58-0400 Body mass index (BMI) [Ratio] 36.7 kg/m2 [facility] Work Phone: 01-31-2022 08:58-0400 Body temperature 97.6 [degF] [facility] Work Phone: 01-31-2022 08:58-0400 Body weight 97.06 kg [facility] Work Phone: 01-31-2022 08:58-0400 Diastolic blood pressure 85 mm[Hg] [facility] Work Phone: 01-31-2022 08:58-0400 Heart rate 69 /min [facility] Work Phone: 01-31-2022 08:58-0400 Respiratory rate 16 /min [facility] Work Phone: 01-31-2022 08:58-0400 SaO2% (BldA) [Mass fraction] 97 % [facility] Work Phone: 01-31-2022 08:58-0400 Systolic blood pressure 148 mm[Hg] [facility] Work Phone: 02-24-2021 20:10-0400 Body height 162.6 cm Jun Aguilar MD Work Phone: [facility] Work Phone: 02-24-2021 20:10-0400 Body mass index (BMI) [Ratio] 36.9 kg/m2 Jun Aguilar MD Work Phone: [facility] Work Phone: 02-24-2021 20:10-0400 Body temperature 98.1 [degF] Jun Aguilar MD Work Phone: [facility] Work Phone: 02-24-2021 20:10-0400 Body weight 97.52 kg Jun Aguilar MD Work Phone: [facility] Work Phone: 02-24-2021 20:10-0400 Diastolic blood pressure 84 mm[Hg] Jun Aguilar MD Work Phone: [facility] Work Phone: 02-24-2021 20:10-0400 Heart rate 90 /min Jun Aguilar MD Work Phone: [facility] Work Phone: 02-24-2021 20:10-0400 Respiratory rate 16 /min Jun Aguilar MD Work Phone: [facility] Work Phone: 02-24-2021 20:10-0400 SaO2% (BldA) [Mass fraction] 95 % Jun Aguilar MD Work Phone: [facility] Work Phone: 02-24-2021 20:10-0400 Systolic blood pressure 137 mm[Hg] Jun Aguilar MD Work Phone: [facility] Work Phone: 01-03-2021 13:30-0400 Diastolic blood pressure 59 mm[Hg] Zak Bunn MD Work Phone: [facility] Work Phone: 01-03-2021 13:30-0400 Heart rate 56 /min Zak Bunn MD Work Phone: [facility] Work Phone: 01-03-2021 13:30-0400 Respiratory rate 16 /min Zak Bunn MD Work Phone: [facility] Work Phone: 01-03-2021 13:30-0400 SaO2% (BldA) [Mass fraction] 94 % Zak Bunn MD Work Phone: [facility] Work Phone: 01-03-2021 13:30-0400 Systolic blood pressure 118 mm[Hg] Zak Bunn MD Work Phone: [facility] Work Phone: 01-03-2021 13:05-0400 Body temperature 97.59 [degF] Zak Bunn MD Work Phone: [facility] Work Phone: 01-03-2021 09:20-0400 Body height 162.6 cm Zak Bunn MD Work Phone: [facility] Work Phone: 01-03-2021 09:20-0400 Body mass index (BMI) [Ratio] 36.9 kg/m2 Zak Bunn MD Work Phone: [facility] Work Phone: 01-03-2021 09:20-0400 Body weight 97.52 kg Zak Bunn MD Work Phone: [facility] Work Phone: 12-30-2020 13:39-0400 Body height 161.3 cm Mloz 3 [facility] Work Phone: 12-30-2020 13:39-0400 Body mass index (BMI) [Ratio] 37.84 kg/m2 Valentin Uzhun Phone: 12-30-2020 13:39-0400 Body temperature 97.81 [degF] Valentin Uzhun Phone: 12-30-2020 13:39-0400 Body weight 98.43 kg Valentin Uzhun Phone: 12-30-2020 13:39-0400 Diastolic blood pressure 63 mm[Hg] Valentin Uzhun Phone: 12-30-2020 13:39-0400 Heart rate 78 /min Valentin Uzhun Phone: 12-30-2020 13:39-0400 Respiratory rate 16 /min [facility] Work Phone: 12-30-2020 13:39-0400 SaO2% (BldA) [Mass fraction] 95 % Valentin Uzhun Phone: 12-30-2020 13:39-0400 Systolic blood pressure 128 mm[Hg] Valentin Uzhun Phone: Encounters Encounter Date Encounter Type Care Provider Facility Start: 02-24-2025 ambulatory Frankie Cr Facility :[facility] Start: 02-02-2025 End: 02-02-[address] Frankie Cr MD -[facility] Work Phone: Start: 02-02-2025 End: 02-02-2025 ambulatory Frankie Cr -[facility] Start: 10-29-2024 End: 10-29-2024 Follow-up encounter Jeaneth Lewis MD Work Phone: [facility] Comment on above: Morbid (severe) obes ity due to excess calories (CMS/HCC); Hyperlipidemia, unspecified (CMS/HCC); Body mass index (BMI) 36.0-36.9, adult Start: 10-29-2024 End: 10-29-2024 ambulatory JEANETH Javier LEWIS Not Available Start: 10-01-2024 End: 10-01-[address] Parminder Perez MD -[facility] Work Phone: Start: 10-01-2024 End: 10-01-2024 ambulatory [place] [facility] Work Phone: Start: 10-01-2024 End: 10-01-2024 ambulatory TASH ESTEVEZ Facility:[facility] Start: 04-30-2024 End: 04-30-2024 ambulatory DEANNA MEJIAS Not Available Start: 04-30-2024 End: 04-30-2024 Patient encounter procedure Deanna Mejias CONTINUOUS DRIER HELPER Work Phone: [facility] Comment on above: Medicare annual well ness visit, subsequent (Primary Dx); Benign essential hypertension (CMS/HCC); Hyperlipidemia LDL goal <70 (CMS/HCC); Class 2 severe obesity due to excess calories with serious comorbidity and body mass index (BMI) of 36.0 to 36.9 in adult (CMS/HCC); Atherosclerosis of [place] coronary artery of [place] heart without angina pectoris (CMS/HCC); Abnormal fasting glucose; Prediabetes; Acute pain of left shoulder; Lower extremity edema Start: 02-08-2024 End: 02-08-2024 ambulatory [facility] Start: 02-08-2024 End: 02-08-2024 Subsequent hospital visit by physician Dorina Lab Schedule [facility] Comment on above: Arrived Start: 01-27-2024 End: 01-27-2024 ambulatory DEANNA MEJIAS Not Available Start: 05-17-2023 End: 05-17-2023 ambulatory [facility] Start: 12-19-2022 Non-patient / Non-visit [place] [facility] Start: 12-19-2022 End: 12-19-2022 ambulatory [facility] Work Phone: Start: 12-19-2022 End: 12-19-2022 Patient encounter procedure Out [facility] Start: 12-10-2022 End: 12-10-2022 Admission to same day surgery center Out [facility] Supervisor/Special Procedures Start: 12-10-2022 End: 12-10-2022 ambulatory Out of [facility] Work Phone: Start: 11-28-2022 Non-patient / Non-visit Out [facility] Start: 11-21-2022 Non-patient / Non-visit Out [facility] Start: 11-21-2022 End: 11-21-2022 Patient encounter procedure Out [facility] Start: 10-22-2022 End: 10-22-2022 Patient encounter procedure Out [facility] Start: 03-19-2022 Non-patient / Non-visit [facility] Start: 03-19-2022 End: 03-19-2022 Admission to same day surgery center [facility] Start: 03-19-2022 End: 03-19-2022 ambulatory [facility] Work Phone: Start: 03-09-2022 [facility] Start: 03-09-2022 End: 03-09-2022 Admission to same day surgery center [facility] Start: 03-09-2022 End: 03-09-2022 Patient encounter procedure [facility] Start: 02-07-2022 End: 02-07-2022 Patient encounter procedure Krysta Lovett OD Work Phone: Ophthalmology Comment on above: 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 ated macular degeneration, bilateral, advanced atrophic with subfoveal involvement (Primary Dx); Legal blindness, as defined in [place]; Pseudophakia of both eyes Start: 02-07-2022 Telephone encounter Krysta tran OD Work Phone: Ophthalmology Comment on above: Results Start: 01-31-2022 End: 01-31-2022 Patient encounter procedure [facility] Start: 10-06-2021 End: 10-06-2021 Subsequent hospital visit by physician Dorina Lab Schedule [facility] Comment on above: Arrived Start: 02-24-2021 End: 02-24-2021 Emergency department patient visit Jun Aguilar MD Work Phone: [facility] Comment on above: Contusion of right e lbow, initial encounter (Primary Dx) Start: 01-27-2021 Patient encounter procedure Jeaneth Joshua Work Phone[facility] Work Phone: Start: 01-11-2021 Chart Update Jeaneth Joshua Work Phone: [facility] Work Phone: Start: 01-04-2021 Chart Update [facility] Work Phone: [facility] Work Phone: Start: 01-03-2021 SURGNON, Provider: Zak Bunn, Status: Pen, Time: 10:30 AM Jeaneth Lewis Work Phone: [facility] Work Phone: Start: 01-03-2021 End: 01-03-2021 ambulatory [facility] Start: 01-03-2021 End: 01-03-2021 Subsequent hospital visit by physician Zak Bunn MD Work Phone: [facility] Start: 12-30-2020 End: 01-04-2021 ambulatory ZAK BUNN [facility] Start: 12-30-2020 End: 01-03-2021 Subsequent hospital visit by physician Charity Salguero 3 Susan Pre-Admission Testing Start: 12-30-2020 Patient encounter procedure Jeaneth Lewis Work Phone: [facility] [facility] Work Phone: Start: 08-19-2019 End: 08-19-2019 Subsequent hospital visit by physician Dorina [facility] Comment on above: Arrived Start: 05-29-2018 End: 05-29-2018 Emergency department patient visit Ham Soria Facility:[facility] Start: 05-29-2018 Patient encounter procedure Facility:[id number] Procedures Date Procedure Procedure Detail Performing Clinician Start: 04-30-2024 Hemoglobin glycosyla bjorn a1c Deanna Mejias CONTINUOUS DRIER HELPER Work Phone: Start: 02-08-2024 Comprehensive metabo lic panel Deanna Hubbard Randell [employer]IMMER - CONTINUOUS DRIER HELPER Work Phone: Start: 02-08-2024 Lipid panel Deanna gamble Randell [employer]IN[employer] TRIMMER - CONTINUOUS DRIER HELPER Work Phone: Start: 11-30-2022 Plain chest X-ray Out T own Doctor Start: 11-21-2022 Cardiovascular stres s test using pharmacologic stress agent Out Town Doctor Start: 03-19-2022 Lap Robotic Umb/Vent ral Hernia (Not Applicable) JEANETH LEWIS Start: 02-07-2022 Computerized ophthal radha imaging retina Krysta Lovett OD Work Phone: Start: 10-06-2021 Comprehensive metabo lic panel Jeaneth Lewis MD Work Phone: Start: 10-06-2021 Lipid panel Jeaneth bowie MD Work Phone: Start: 02-24-2021 Radex elbow complete minimum 3 views Jun Aguilar MD Work Phone: Start: 12-30-2020 End: 12-30-2020 Basic metabolic panel calcium total Zak Bunn MD Work Phone: Start: 12-30-2020 Ecg routine ecg w/le ast 12 lds w/i&r Zak Bunn MD Work Phone: Start: 08-19-2019 [object Object] [facility] Comment on above: When the Total PSA i s between 3.00 and 10.00 ng/mL, consider requesting a Free PSA to aid in diagnosis. Start: 08-19-2019 Basic metabolic pane l calcium total Cherry Grover Work Phone: Start: 08-19-2019 Lipid panel Cherry dixon-René Work Phone: Start: 08-19-2019 PSA screening Cherry dos santos-René Work Phone: History of placement of stent for coronary artery disease H/O heart artery stent JEANETH LEWIS Comment on above: X5 History of placement of stent for coronary artery disease H/O heart artery stent Dr. Parminder Perez MD Plan of Treatment Date Care Activity Detail Author Start: 04-30-2025 Medicare Annual Wellness (AWV) Medicare Annual Wellness (AWV) [facility] Start: 10-29-2024 End: 10-29-2024 Patient encounter procedure 10/29/2024 9:00 AM EDT Office Visit [facility] [address] [place] [id number] Jeaneth Lewis MD [address] [place] [address] [facility] Start: 06-25-2024 Influenza vaccination Influenza Vacc ine (#1) [facility] Comment on above: Postponed from 03/08 (Patient Refused) Start: 05-17-2024 Lipid panel Lipids [facility] [employer]5 Start: 02-06-2024 Influenza vaccination [facility] Start: 07-08-2023 Annual Wellness Visi t (Medicare Advantage) Annual Wellness Visit (Medicare Advantage) [facility] Start: 03-08-2023 COVID-19 Vaccine ( season) COVID-19 Vaccine ( season) [facility] Start: 10-06-2022 Creatinine measurement Creatinine mo nitoring [facility] Start: 10-06-2022 Lipid panel Lipid screen [facility] Start: 10-06-2022 Potassium [facility] [employer] Start: 03-19-2022 Patient discharge [place] Work Phone: Start: 03-08-2022 Influenza vaccination [facility] Start: 12-30-2021 Creatinine measurement Creatinine mo nitoring [facility] [employer] Phone: Start: 12-30-2021 Lipid panel Lipid screen [facility] [employer] Phone: Start: 12-30-2021 Potassium monitoring Potassium monit oring [facility] [employer] Phone: Start: 07-08-2021 ADVANCE DIRECTIVE DISCUSSION ADVANCE DIRECTIVE DISCUSSION [facility] Start: 03-08-2021 Influenza vaccination Flu vaccine (# 1) [facility] [employer] Phone: Start: 01-29-2021 COVID-19 Vaccine (3 - Booster for Moderna series) COVID-19 Vaccine (3 - Booster for Moderna series) [facility] [employer] Start: 01-11-2021 POV, Provider: Sylvia Campa, Status: Pen, Time: 10:30 AM POV, Provider: Sylvia Campa, Status: Pen, Time: 10:30 AM [facility] Work Phone: Start: 01-03-2021 SURGNON, Provider: Zak Bunn, Status: Pen, Time: 10:30 AM [facility], Provider: Zak Bunn, Status: Pen, Time: 10:30 AM [facility] Work Phone: Start: 09-11-2020 DIABETES SCREEN DIABETES SCREEN [facility] Start: 04-08-2019 Pneumococcal 65+ yea rs Vaccine (2 of 2 - PPSV23 or PCV20) Pneumococcal 65+ years Vaccine (2 of 2 - PPSV23 or PCV20) [facility] [employer] Start: 04-08-2019 Pneumococcal 65+ yea rs Vaccine (2 of 2 - PPSV23) Pneumococcal 65+ years Vaccine (2 of 2 - PPSV23) [facility] [employer] Start: 03-08-2019 Influenza vaccination Flu vaccine (# 1) [facility] [employer] Phone: Start: 12-26-2018 Annual Wellness Visi t (AWV) Annual Wellness Visit (AWV) [facility] [employer] Start: 06-03-2018 Pneumococcal Vaccine : 65+ Years (2 of 2 - PPSV23 or PCV20) Pneumococcal Vaccine: 65+ Years (2 of 2 - PPSV23 or PCV20) [facility] Start: 06-03-2018 Pneumococcal Vaccine : 65+ Years (2 of 2 - PPSV23) Pneumococcal Vaccine: 65+ Years (2 of 2 - PPSV23) [facility] Start: 08-14-2016 Shingles Vaccine (2 of 3) Shingles Vaccine (2 of 3) [facility] Start: 2005 Pneumococcal 65+ yea rs Vaccine (1 of 1 - PPSV23) Pneumococcal 65+ years Vaccine (1 of 1 - PPSV23) [facility] [employer] Phone: Start: 2005 Pneumococcal 65+ yea rs Vaccine (2 of 2 - PPSV23) Pneumococcal 65+ years Vaccine (2 of 2 - PPSV23) [facility] [employer] Phone: Start: 2005 PNEUMOCOCCAL: 65+ (1 - PCV) PNEUMOCOCCAL: 65+ (1 - PCV) [facility] Start: 2000 Respiratory Syncytia l Virus (RSV) or age 60 yrs+ (1 - 1-dose 60+ series) Respiratory Syncytial Virus (RSV) or age 60 yrs+ (1 - 1-dose 60+ series) [facility] Start: 1990 Shingles Vaccine (1 of 2) Shingles Vaccine (1 of 2) [facility] [employer] Phone: Start: 1990 SHINGRIX VACCINE (1 of 2) SHINGRIX VACCINE (1 of 2) [facility] Start: 1959 DTaP/Tdap/Td vaccine (1 - Tdap) DTaP/Tdap/Td vaccine (1 - Tdap) [facility] Start: 1959 Urine microalbumin profile DTAP,TDAP,TD (1 - Tdap) [facility] Start: 1952 Depression Screen Depression Screen [facility] Start: 1951 DTaP/Tdap/Td vaccine (1 - Tdap) DTaP/Tdap/Td vaccine (1 - Tdap) [facility] Work Phone: Culture, Surgical [facility] Work Phone: Comment on above: Release Upon Orderin g for 1 Occurrences starting 01/03/2021 Oxygen therapy [Mini [facility] Data Set] Initiate Oxygen Therapy Protocol Respiratory Care Routine Daily until discontinued starting 01/03/2021 [facility] Work Phone: Comment on above: Daily until disconti nued starting 01/03/2021 Patient referral [facility] Work Phone: Phase I & II - meter ed glucose Phase I & II - metered glucose Point of Care Testing Routine As Needed until discontinued starting 01/03/2021 [facility] Work Phone: Comment on above: As Needed until disc ontinued starting 01/03/2021 Spirometry panel Incentive deandra metry Respiratory Care Routine Every 2hr while awake until discontinued starting 01/03/2021 [facility] Work Phone: Comment on above: Every 2hr while awak e until discontinued starting 01/03/2021 Surgical Pathology [facility] Work Phone: Comment on above: Release Upon Orderin g for 1 Occurrences starting 01/03/2021 End: 01-03-2021 Surgical Pathology Surgical Pathology Lab Routine Once for 1 Occurrences starting 01/03/2021 until 01/03/2021 [facility] Work Phone: Comment on above: Once for 1 Occurrenc es starting 01/03/2021 until 01/03/2021 [facility] Immunizations Immunization Date Immunization Notes Care Provider Mike blackwood 12-20-2022 zoster vaccine recombinant Deanna Bieri CONTINUOUS DRIER HELPER Work Phone: [facility] 04-07-2022 influenza virus vaccine, unspecified formulation Deanna Bieri CONTINUOUS DRIER HELPER Work Phone: [facility] 10-20-2021 zoster vaccine recombinant Deanna Bieri CONTINUOUS DRIER HELPER Work Phone: [facility] 09-08-2021 influenza, high dose seasonal, preservative-free Deanna Bieri CONTINUOUS DRIER HELPER Work Phone: [facility] 09-05-2021 influenza virus vaccine, unspecified formulation Deannadena Mejias CONTINUOUS DRIER HELPER Work Phone: [facility] 08-21-2021 Moderna SARS-CoV-2 Vaccination Deanna Bieri CONTINUOUS DRIER HELPER Work Phone: [facility] 09-01-2020 Moderna COVID-19 Vaccine 100 MCG/0.5ML Intramuscular Suspension [facility] Work Phone: [facility] 07-29-2020 Moderna COVID-19 Vaccine 100 MCG/0.5ML Intramuscular Suspension [facility] Work Phone: [facility] Work Phone: 04-07-2020 Fluad Quadrivalent 0 .5 ML Intramuscular Prefilled Syringe [facility] Work Phone: [facility] Work Phone: 04-08-2019 influenza, injectabl e, quadrivalent, preservative free [facility] Work Phone: [facility] Work Phone: 04-07-2019 influenza, seasonal, injectable, preservative free Deanna Mejias CONTINUOUS DRIER HELPER Work Phone: [facility] 04-08-2018 pneumococcal conjuga te vaccine, 13 valent [facility] Work Phone: [facility] Work Phone: 04-08-2018 Seasonal trivalent influenza vaccine, adjuvanted, preservative free [facility] Work Phone: [facility] Work Phone: 09-04-2016 influenza, seasonal, injectable [facility] Work Phone: [facility] Work Phone: 06-19-2016 zoster vaccine, live Deanna Mejias CONTINUOUS DRIER HELPER Work Phone: [facility] 05-13-2016 influenza virus vaccine, unspecified formulation Deanna Bieri CONTINUOUS DRIER HELPER Work Phone: [facility] 10-24-2015 pneumococcal conjuga te vaccine, 13 valent Jeaneth Lewis Work Phone: [facility] Work Phone: 04-20-2015 influenza, high dose seasonal, preservative-free Deanna Bieri CONTINUOUS DRIER HELPER Work Phone: [facility] 04-07-2015 influenza virus vaccine, unspecified formulation Deanna Bieri CONTINUOUS DRIER HELPER Work Phone: [facility] 09-14-2014 pneumococcal conjuga te vaccine, 13 valent Deanna Bieri CONTINUOUS DRIER HELPER Work Phone: [facility] 03-16-2013 influenza virus vaccine, unspecified formulation Deanna Bieri CONTINUOUS DRIER HELPER Work Phone: [facility] 03-16-2013 pneumococcal vaccine , unspecified formulation Deanna Bieri CONTINUOUS DRIER HELPER Work Phone: [facility] 04-01-2012 influenza, high dose seasonal, preservative-free Deanna Bieri CONTINUOUS DRIER HELPER Work Phone: [facility] Payers Date Payer Category Payer Self-pay 2021 Medicare UHC MEDICARE UHC AARP OPTUM CARE O [id number] 2021-Present [phone] [address] [address] [place] [address] O [id number] 2019 Medicare (Managed Care) [facility] MEDICARE COMPLETE [id number] 2019 Medicare [id number] 2018 Unknown 2014 Medicare BCBS MEDICARE AN THEM MEDIBLUE ESSENTIAL/PLUS xxxxxxxxxxxx 2014-Present [address] [address] [place] [address] xxxxxxxxxxxx [id number] 1940 Unknown [id number]. 717 1940 Unknown [id number]. 356 1940 Unknown [id number]. 182 1940 Unknown [id number] [id number]. 182 1940 Unknown [id number] [id number]. 185 1940 Unknown [id number] [id number]. 185 1940 Unknown [id number] [id number]. 1259 1940 Unknown [id number]. 1259 1940 Unknown [id number] [id number]. 1259 Unknown [id number] Unknown [id number] [id number]. 462 Unknown [id number] [id number]. 462 Unknown [id number]. 462 Unknown [id number]. 462 Social History Date Type Detail Facility Tobacco smoking stat us NHIS Unknown if ever smoked [employer] Phone: Start: 1940 Sex Assigned At Not on file [facility] [place] Phone: Start: 12-30-2020 End: 05-16-2023 Tobacco smoking status NHIS Never smoker [facility] Phone: Start: 12-30-2020 End: 04-25-2023 Tobacco use and exposure Never used [employer] Start: 01-28-2022 End: 02-07-2022 Exposure to SARS-CoV-2 (event) Not sure [facility] Start: 02-24-2021 Alcohol intake Lifetime non-d antony (finding) [facility] Phone: Start: 02-24-2021 History SDOH Alcohol Frequency 1 [facility] Phone: Start: 02-07-2022 Alcohol intake Current drinke r of alcohol (finding) [facility] Start: 03-09-2022 End: 12-10-2022 Tobacco smoking status NHIS Unknown if ever smoked [facility] Start: 1940 Sex Assigned At Male [facility] Start: 04-30-2024 Alcoholic beverage intake Ex-drinker (finding) [facility] Start: 02-24-2021 End: 04-30-2024 History of Social function [employer] Start: 02-24-2021 End: 04-30-2024 Alcohol Use Disorder Identification Test - Consumption [AUDIT-C] Darudar How often to you hav e a drink containing alcohol? Never [facility] How many standard dr inks containing alcohol do you have on a typical day? Patient does not drink [facility] Do you feel stress - tense, restless, nervous, or anxious, or unable to sleep at night because your mind is troubled all the time - these days [OSQ] Not at all [facility] Start: 10-06-2024 Sex Male (finding) [facility] Medical Equipment Procedure Code Equipment Code Equipment Origin al Text Equipment Identifier Dates Bxs-Mw-C-Kind Implant - [id number]_[facility] Start: 11-09-2015 Comment on above: Description: g7 acet abular liner Hgh-Pm-O-Kind Implant - [id number]_[facility] Start: 11-09-2015 Comment on above: Description: g7 osse o Ti acetabular shell Vbl-Bi-L-Kind Implant - [id number] Acetabular Screw 6.5mm X 25 [id number]_[facility] Start: 11-09-2015 Comment on above: Description: g7 acet abular screw 6.5mm x 25mm Ylz-Ke-Q-Kind Implant - [id number] Acetabular Screw 6.5mm X 20mm [id number] Start: 11-09-2015 Comment on above: Description: G7 ACET ABULAR SCREW 6.5MM X 20MM- BIOMET Lens Acrysof Iq +20.5 Diopter Natural 0 D Biconvex Acrylic Methacrylate - [id number]_[facility] Start: 05-03-2016 Lens Acrysof Iq +21 Diopter Natural Stableforce 0 D Biconvex 118.7 - [id number]_[facility] Start: 05-10-2016 Head G7 40mm Bio lox Delta Femoral Hip - [id number]_[facility] Start: 11-09-2015 Sleeve G7 -3mm Offset Taper Biolox Delta Option Titanium Centering Type 1 - [id number]_[facility] Start: 11-09-2015 Stem Taperloc 13 3d 12 Standard Offset Taper Pps 144mm Femoral Type 1 Full - [id number]_[facility] Start: 11-09-2015 MESH,VENTRALIGHT ST 4x6 FDA Start: 03-19-2022 MESH,VENTRALIGHT ST 4x6 FDA Start: 03-19-2022 MESH,VENTRALIGHT ST 4x6 FDA Start: 03-19-2022 MESH,VENTRALIGHT ST 4x6 FDA Start: 03-19-2022 Goals Date Patient Goal Desired Activity /State Mental Status Date Assessment Result Facility 03-19-2022 Cognitive function Appropriate;Drowsy [facility] Work Phone: Clinical Notes 10-27-2019 to 02-02-2025 Note Date & Type Note Facility 02-02-2025 Progress note [facility] 02-02-2025 Progress note Note Date/Time February 02, 2025 10:01am [facility] [address] OFFICE VISIT Date of Service: 02/02/25 MR#: [id number] Acct: [id number] Name: TAYLOR ARNDT Rep #: [id number] : 1940 Provider: Dr. Jose Cr MD Age/Sex: 84/M Location: [facility].GISSELL Status: Signed Intake Vital Signs 10/01/24 15:17 02/02/25 09:40 Height 5 ft 4 in 5 ft 4 in Weight: 217 lb 214 lb 8 oz BMI 37.2 36.8 BP 135/73 H Blood Pressure Location Lt brachial Position Sitting Respiration 16 Pulse 91 Pulse Source Monitor Intake Visit Reasons: RIGHT HAND Chief Complaint: Right hand Accompanied by: Daughter In Law Is patient in pain?: Yes (When closing the hand) Pain scale (1-10): 8 Allergies No Known Allergies Allergy (Unverified 02/02/25 09:43) Medications ?Medication ?Instructions ?Recorded ?Confirmed ?Type aspirin 81 mg tablet,delayed 81 mg PO DAILY 01/31/22 0 02/02/25 History release (Adult Aspirin Regimen) atorvastatin 20 mg tablet 20 mg PO DAILY 01/31/2201/06 History lisinopril 10 mg tablet 10 mg PO DAILY 01/31/2201/06 History allopurinol 100 mg tablet 100 mg PO DAILY PRN 01/06/24 02/02/25 History probenecid 500 mg-colchicine 0.5 1 tab PO BID PRN 07/3102/02/25 History mg tablet vitamins A,C,V-femg-qmhlce 4,296 1 cap PO DAILY 02/02/25 History mcg-226 mg-90 mg capsule (PreserVision AREDS) Have you fallen in the past year?: No [facility] Medical History Right carpal tunnel syndrome Atherosclerotic heart disease of [place] coronary artery without angina pectoris Old myocardial infarction Pure hypercholesterolemia History of left heart catheterization ([facility]) (~2000) Essential hypertension Legally blind Arthritis Gout High cholesterol Injury of head and neck Non-smoker History of stress test Cardiology follow-up encounter Hypertension Heart attack Hypertension Surgical History Hx of umbilical hernia repair History of cardiac catheterization H/O heart artery stent S/P appendectomy S/P hip replacement Social History Smoking Status: Never smoker alcohol intake: never substance use type: does not use caffeine: Yes Type: coffee Number of servings: 2 and tea HPI RIGHT HAND Details: This documentation accurately reflects the service provided and the decisions made by me, Dr. Frankie Cr MD 02/02/25 0839. Part of today?s visit was documented by [ ], acting as scribe. TAYLOR ARNDT is a 84 year old M here today for R possible carpal tunnel syndrome. Patient has numbness and tingling into the thumb index and middle finger predominantly on the right side. Much less so on the left side but some numbness into the left middle finger. He has to shake it out. 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 This problem has been getting worse over the last year or longer. He is trying bracing during the nighttime as well as during the day and seems to be helping slightly. Feels like the hand is weak. Coding Level of Care Code Off vis,new,level 4 Diagnoses Right carpal tunnel syndrome G56.01 Assessment and Plan Assessment and Plan (1) Right carpal tunnel syndrome: Status: Acute Plan: TAYLOR ARNDT is a 84 year old M here today for R possible carpal tunnel syndrome. Clinically as well as subjectively the patient has right carpal tunnel syndrome. Negative Tinel's at the elbow and no numbness to that ulnar nerve distribution. The next step I will go ahead and order bilateral upper extremity nerve conduction studies he is getting some mild symptoms as well contralateral side and follow-up after that in the meantime nighttime splinting we also discussed other options including cortisone injections and surgery. Carpal Tunnel Syndrome (CTS) occurs when the median nerve, which runs through the wrist, becomes compressed. Treatment options vary based on the severity of the condition: Non-Surgical Treatments: Wrist Splinting: Wearing a splint at night to keep the wrist in a neutral position. Activity Modification: Avoiding repetitive wrist movements or adjusting work habits. Physical Therapy: Exercises to improve wrist and hand function. Medications: Anti-inflammatory drugs (NSAIDs) or corticosteroid injections to reduce swelling and pain. Surgical Treatment: Carpal Tunnel Release Surgery: A procedure where the ligament pressing on the median nerve is cut to relieve pressure. This is considered when non-surgical treatments are ineffective. Options are min-open or endoscopic. Clinical Quality Measures Falls Risk Screening/Assistive Devices Have you fallen in the past year?: No Ortho Exam General General: Yes no acute distress Neurologic: Yes alert and Yes oriented x3 Psychologic: Yes reasonable and appropriate Right Wrist/Hand Skin/Wound: Yes CDI, No Swelling, No Ecchymosis, Yes nail intact and Yes capillary refill normal Right Wrist: Yes Durken's Test, Phalen's and Thenar Atrophy; No Tinel's, Tender to palpate triangular fibrocartilage complex, Distal radioulnar joint or Hypothenar Atrophy Motor: EPL: 5, FDP-2: 5, 1st Dorsal Interosseous: 5 and APB: 5 Sensation: Radial: I, Ulnar: I and Median: D Left Wrist/Hand Skin/Wound: No Swelling and No Ecchymosis 02/02/25 1001 <Electronically signed by Frankie tolbert MD> Date _ Frankie Cr MD Cosigner Signature: Date (if applicable) CC: ~ [facility] [employer] Work Phone: 1(849) 812-611504-24-2025 History of Present illness Narrative* Jeaneth Lewis MD - 10/29/2024 9:00 AM EDT Chart Review: Have reviewed previous notes, labs, consults. Blind obese patient living with his demented coming in for six-month check after a wellness exam in May. At that time he was obese and had bilateral lower leg edema Hemoglobin A1c was 6.0 He would be due for additional labs in the fall Last weight was 213 lb with controlled blood pressurenep [id number] Evaluation note* Diagnosis Onset Date Resolution Status Admit Date Essential hypertension acute [facility] 2024 3:04pm H/O heart artery stent acute [facility] 2024 3:04pm Pure hypercholesterolemia acute October 01, 2024 3:04pm [facility] Work Phone: 1(365) 689-847510-24-2024 History of Present illness Narrative* Deanna Mejias NP - 04/30/2024 11:50 AM EDTAssociated Problem(s): Lower extremity edema Recommend compression stockings during the day. Avoid added salt * Deanna Mejias NP - 04/30/2024 11:48 AM EDTAssociated Problem(s): Acute pain of left shoulder Recommended conservative treatment; apply heat intermittently, continue tylenol, rotate with NSAID such as aleve or ibuprofen, can also try topical treatment such as lidocaine patch. Avoid using the extremity for lifting, pushing, pulling until it feels better. Let usknow if the pain persists with conservative treatment; you may been an ortho consult * Deanna Mejias NP - 04/30/2024 11:46 AM EDTAssociated Problem(s): Class 2 severe obesity due to excess calories with serious comorbidity and body mass index (BMI) of 36.0 to 36.9 in adult ([facility]) Discussed lifestyle changes to help with weight loss * Deanna Mejias NP - 04/30/2024 11:46 AM EDTAssociated Problem(s): Hyperlipidemia LDL goal <70 ([facility]) Continue statin. Discussed elevated triglycerides; recommend omega-3 supplement * Deanna Mejias NP - 04/30/2024 11:45 AM EDTAssociated Problem(s): Prediabetes A1c today is 6 * Deanna Mejias NP - 04/30/2024 11:45 AM EDTAssociated Problem(s): Benign essential hypertension ([facility]) Blood pressure is well-controlled * Deanna Mejias NP - 04/30/2024 11:44 AM EDTAssociated Problem(s): Atherosclerosis of [place] coronary artery of [place] heart without angina pect alexandre ([facility]) Continue followups as scheduled with Cardiology * Deanna Mejias NP - 04/30/2024 9:00 AM EDT Images from the original note were not included. Subjective: Subjective : Chief Complaint: Taylor Arndt is an 84 y.o. male here for an annual wellness visit. HPI: Legally blind man accompanied today by his granddaughter. [facility] but we have not received records despite multiple attempts to obtain them. He tells me he is doing well with the exception of his left shoulder hurting for the last couple ofweeks. 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 He has taken extra strength tylenol with some relief. He is able to move his left arm in all directions but it does elicit some pain. [facility] I have reviewed and reconciled the medication list with the patient today. Current Outpatient Medications Medication Sig Dispense Refill allopurinol (Zyloprim) 100 MG tablet take 1 tablet by mouth once daily for 90 aspirin (Aspir-Low) 81 MG EC tablet 1 (one) time each day at the same time. atorvastatin (Lipitor) 20 MG tablet Take 1 tablet (20 mg) by mouth Daily 90 tablet 3 colchicine-probenecid 0.5-500 MG tablet take 1 tablet by mouth twice a day for 90 lisinopril-hydroCHLOROthiazide 10-12.5 MG tablet Take 1 tablet by mouth Daily 90 tablet 3 No current facility-administered medications for this visit. Review Of Systems: Review of Systems Constitutional: Negative. HENT: Negative. Respiratory: Negative. Cardiovascular: Negative. Gastrointestinal: Negative. Musculoskeletal: Positive for arthralgias. Skin: Negative. Neurological: Negative. Psychiatric/Behavioral: Negative. List of current healthcare providers: Patient Care Team: Jeaneth Lewis MD as PCP - General (Geriatric Medicine) Jeaneth Lewis MD as PCP - [facility] Deanna Mejias NP as Nurse Practitioner (Family Medicine) Labs: Lab Results Component Value Date HGBA1C 6.0 04/30/2024 Lab Results Component Value Date CALCIUM 9.1 02/08/2024 NA 141 02/08/2024 K 4.1 02/08/2024 CO2 24 02/08/2024 BUN 15 02/08/2024 CREATININE 0.98 02/08/2024 Objective: Objective : BP 115/72 (BP Location: Left arm, Patient Position: Sitting, BP Cuff Size: Adult) Pulse 60 Temp97.6 F (Skin) Ht 5' 4 Wt 213 lb SpO2 94% BMI 36.56 kg/m No results found. Physical Exam Constitutional: General: He is not in acute distress. Appearance: Normal appearance. He is obese. Eyes: Comments: Legally blind in both eyes Cardiovascular: Rate and Rhythm: Normal rate and regular rhythm. Heart sounds: Normal heart sounds. Pulmonary: Effort: Pulmonary effort is normal. Breath sounds: Normal breath sounds. Abdominal: General: Bowel sounds are normal. There is no distension. Palpations: Abdomen is soft. Tenderness: There is no abdominal tenderness. Musculoskeletal: General: Normal range of motion. Right lower leg: Edema present. Left lower leg: Edema present. Comments: Trace BLE edema Skin: General: Skin is warm and dry. Neurological: Mental Status: He is alert and oriented to person, place, and time. Motor: No weakness. Gait: Gait normal. Psychiatric: Mood and Affect: Mood normal. Behavior: Behavior normal. Thought Content: Thought content normal. Judgment: Judgment normal. Assessment & Plan Assessment/Plan : The following health maintenance schedule was reviewed with the patient and provided in printed form in the after visit summary: Health Maintenance Topic Date Due Pneumococcal Vaccine: 65+ Years (2 of 2 - PPSV23 or PCV20) 06/03/2018 Influenza Vaccine (1) 06/25/2024 (Originally 03/08/2024) Medicare Annual Wellness (AWV) 04/30/2025 Advance Care Planning has an advanced directive - a copy HAS NOT been provided. Orders Placed This Encounter Procedures POCT glycated hemoglobin, total docked device Atherosclerosis of [place] coronary artery of [place] heart without angina pectoris ([facility]) Continue followups as scheduled with Cardiology Benign essential hypertension ([facility]) Blood pressure is well-controlled Prediabetes A1c today is 6 Hyperlipidemia LDL goal <70 ([facility]) Continue statin. Discussed elevated triglycerides; recommend omega-3 supplement Class 2 severe obesity due to excess calories with serious comorbidity and body mass index (BMI) of36.0 to 36.9 in adult ([facility]) Discussed lifestyle changes to help with weight loss Acute pain of left shoulder Recommended conservative treatment; apply heat intermittently, continue tylenol, rotate with NSAID such as aleve or ibuprofen, can also try topical treatment such as lidocaine patch. Avoid using the extremity for lifting, pushing, pulling until it feels better. Let usknow if the pain persists with conservative treatment; you may been an ortho consult Lower extremity edema Recommend compression stockings during the day. Avoid added salt Follow up in about 6 months (around 10/29/2024). Or sooner if needed documented in this encounterPershing Memorial [id number] History and physical note Author Dr. 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 He has a past cardiovascular history which includes underlying CAD, and NC, PCI (details unknown), hyperlipidemia, hypertension, and macular degeneration.? He has previously been followed through [facility] [place] [place] [facility]. 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 He had a previous ECG obtained from 02-03-2016.? At that time he had sinus rhythmwith PACs and an inferior NC pattern reported. He had a repeat ECG on 03/29/2022 that demonstrated sinus rhythm with an inferiorMI pattern of indeterminate age cannot be excluded. He had a transthoracic echocardiogram performed on 02-02-2016 through his hospital system through the [facility].? According to the report his left ventricle was thought to have a normal systolic function with an LVEF reported at 51% with mild concentric LVH.? The left atrium was mildly dilated.? There was trace MR.? There was trace TR. It appears that he also underwent a pharmacologic stress nuclear imaging study on 10-27-2015 through hospital system.? According to the report he had findings compatible with mild inferior wall darren-infarct myocardial ischemia with a moderate myocardial infarction by perfusion imaging with an LVEF of 40%.?There was a comment that compared to a previous exercise myocardial perfusion stress test of May 14, 2008 there was no significant change. 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 According to a preoperative note from 11-01-2015 there was a comment that his myocardial perfusion studies showed no change compared to a previous study done approximately 3 years prior.? At that time they recommended no further evaluation and care.? He proceeded with hip replacement surgery.? He states he went through surgery without any obvious cardiovascular complications. From a cardiac standpoint, the patient is doing well. He denies any palpitations, chest pain, pressure or heaviness. He denies SOB, Orthopnea, and PND. He does not have bleeding issues; no blood in urine, stool or nosebleeds. He denies any decrease in energy level, myalgias, or claudication.? He does havean occasional joint pain/arthritis. He does not have edema, or sudden weight gain. He denies dizziness, lightheadedness, syncopal or near syncopal episodes, and headaches. Intake Vital Signs See EMR Allergies See EMR Medications See EMR [facility] Medical History? Arthritis Atherosclerotic heart disease of [place] coronary artery without angina pectoris Cardiology follow-up encounter Essential hypertension Gout Heart attack High cholesterol History of left heart catheterization (LHC) (~2000) History of stress test Hypertension Hypertension Injury of head and neck Legally blind Non-smoker Old myocardial infarction Pure hypercholesterolemia Surgical History? H/O heart artery stent History of cardiac catheterization Hx of umbilical hernia repair S/P appendectomy S/P hip replacement Social History? Smoking Status:? Never smoker alcohol intake:? never substance use type:? does not use caffeine:? Yes Type: coffee Number of servings: 2 and tea ROS Const Const: Negative for fatigue, weakness, fever(s), headache(s), chills, frequent falls, weight gain or weight loss Eyes Eyes: Negative for blind spots, loss of peripheral vision, transient loss of vision, blurry vision, change in vision, double vision, floaters or tunnel vision ENT ENT: Negative for headache(s), dizziness, Nosebleed/epistaxis, balance problems or neck pain Cardio Chest Pain: No Palpitations: No Edema: None Muscle aches with walking: None Resp Respiratory: Negative for SOB with activity, SOB at rest or SOB orthopnea\SOB lying down GI GI: Negative nausea, vomiting, heartburn, bloating, vomiting blood/hematemesis, bright, red blood in stools or black,tarry stools Musc Musc: Positive for joint pain; Negative for muscle aches/ myalgia, muscle weakness or balance problems Neuro Neuro: Negative for dizziness, lightheadedness, near syncope, syncope, orthostatic symptoms, frequent falls, headache(s), weakness, blurry vision or double vision Jose Martin Hematologic/Lymphatic: Negative for easy bleeding or easy bruising Endo Endo: Negative for fatigue Cardiology Exam Const Appearance: cooperative, healthy appearing, comfortable, no acute distress, welldeveloped and well groomed Nutritional Appearance: obese Orientation: alert, awake and oriented x3 Head Head: normal to inspection, normocephalic and atraumatic Ears: hearing grossly normal bilaterally Nose: external nose normal Face and Sinus: face symmetric Eyes Eyelids: eyelids normal Conjunctivae: conjunctivae normal Pupils: PERRL EOM: EOM intact bilaterally Patient is legally blind due to macular degeneration Neck Neck: normal visual inspection and full ROM Carotids: normal carotid upstroke Chest Chest inspection: normal inspection of the chest, symmetric chest movement and normal respiratory effort Auscultation: Bilateral: Clear to Auscultation Cardio Palpation: normal PMI Rate: regular rate Rhythm: regular rhythm Heart sounds: S1 normal and S2 normal GI GI: normal to inspection, soft and obese Skin Skin: no rashes or lesions noted Extremities Pulses: Normal: Right Radial Pulse and Left Radial Pulse Lower Extremity Edema: None: Bilateral Psych Psychological: normal affect Supplemental Info Supplemental Information Stress test 11/21/2022: Pharmacologic myocardial perfusion stress test. 82-year-old man with a history of coronary artery disease Resting EKG demonstrates sinus rhythm with a rate of 70 bpm. Resting blood pressure 122/78. 0.4 mg of regadenoson was infused per usual protocol followedby rapid intravenous saline flush injection. Continuous EKG monitoring was performed. The maximum heart rate was 71 bpm which was 58% of max impacted heart rate the maximum workload was 1 metabolic equivalent. At rest there were no ST or T wave changes noted to suggest ischemia and at peak infusion nonspecific ST changes were noted which did not meet the criteria for ischemia. No clinical angina is noted. The final blood pressure was 124/78 mmHg. Myocardial perfusion protocol. 14.8 mCi of technetium 99m sestamibi was injected at rest. 0.4 mg of regadenoson was infused per usual protocol. At peak infusion 44.8 mCi of technetium 99m sestamibi was injected stress images were obtained stress and rest images were reconstructed and compared in the short axis vertical long and horizontal long axis. Gated images were also obtained. Perfusion SPECT analysis: Review of the stress images demonstrate normal uptake of tracer noted in all areas of the myocardium except for the inferior wall with a defect noted from the base to the apex. The resting images similar demonstrated a persistent defectnoted in the base of the inferior wall but in the mid to apical region there wasimprovement suggesting inferior ischemia in this distribution. Gated SPECT analysis: The gated ejection fraction is 57%. Conclusion: Abnormal pharmacologic myocardial perfusion stress test. Basal inferior infarct and mid and apical inferior ischemia Preserved ejection fraction. Assessment and Plan Assessment and Plan (1) H/O heart artery stent: ?Status:?Acute ?Comment: X5 ?Plan: Patient has a history of coronary artery disease with stent placement in 2000. He underwent a stress test on 11/21/2022 which demonstrated an abnormal pharmacologic myocardial perfusion stress test, with basal inferior infarct and mid and apical inferior ischemia. He will proceed with a cardiac catheterizationto further assess this. Depending on results, furhter recommendations will be made. (2) Pure hypercholesterolemia: ?Status:?Acute ?Plan: Patient has a history of hypercholesterolemia. His PCP monitors this. He will continue atorvastatin 20mg daily, along with aggressive risk factor and lifestyle modifications. (3) Essential hypertension: ?Status:?Acute ?Plan: Patient has a history of hypertension. He will continue with his current medical therapy, along with monitoring his blood pressures at home. 11/28/22 1421 <Electronically signed by Kamla ZAVALETA> Cosigner Signature (if applicable): 11/29/22 0947 <Electronically signed by Parminder Perez MD> CC: MEGHANN Albarado; Dr. Parminder Perez MD; JEANETH LEWIS~ Signed [facility] Work Phone: 1(764) 702-932408-03-2022 NoteHNO ID: [id number] Author: Krysta Lovett OD Service: ? Author Type: INSPECTOR CONVEYOR LINE Type: Progress Notes Filed: 02/07/2022 4:41 PM Note Text: ASSESSMENT/PLAN: 1. 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 Legal blindness, as defined in [place] - ICD9: 369.4, ICD10: H54.8 Patient sees low vision at the [facility] They want him to try a goggle but he has to stay for a week Asked him to find out the name of the goggles so I can ask Dr. Gatica for info for him 3. Pseudophakia of both eyes - ICD9: V43.1, ICD10: Z96.1 Stable, monitor yearly Return to clinic: 1 year dilated eye exam with OCT Krysta Lovett, OD I have confirmed and edited as necessary the relevant HPI, ophthalmic history, ROS, and the neuro exam findings as obtained by others. I have seen and examined this patient. I have discussed the case and the management of this patient's care with the Resident/Fellow, if applicable. I also have reviewed and agree with the assessment and plan as stated above and agree with all of its relevant components. Krysta Lovett, OD February 07, 2022 4:11 [facility]08-03-2022 Miscellaneous Notes* Telephone Encounter - John Yo - 02/07/2022 4:57 PM EDT Spoke with patient and gave below message. Patient understands Call patient OCT shows no leakage Monitor yearly If he finds out [facility] leave me a message documented in this encounterFire[facility] History of Present illness Narrative* Krysta Lovett, OD - 02/07/2022 4:10 PM EDT ASSESSMENT/PLAN: 1. 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 Legal blindness, as defined in [place] - ICD9: 369.4, ICD10: H54.8 Patient sees low vision at the [facility] They want him to try a goggle but he has to stay for a week Asked him to find out the name of the goggles so I can ask Dr. Gatica for info for him 3. Pseudophakia of both eyes - ICD9: V43.1, ICD10: Z96.1 Stable, monitor yearly Return to clinic: 1 year dilated eye exam with OCT Krysta Lovett, OD I have confirmed and edited as necessary the relevant HPI, ophthalmic history, ROS, and the neuro exam findings as obtained by others. I have seen and examined this patient. I have discussed the caseand the management of this patient's care with the Resident/Fellow, if applicable. I also have reviewed and agree with the assessment and plan as stated above and agree with all of its relevant compon ents. Krysta Lovett, OD February 07, 2022 4:11 PM documented in this encounterFirelands [facility]07-25-2021 History of Present illness NarrativeMrThai Arndt is here today for a recheck of his right elbow. He is 3-1/2-weeks out from a right olecranon bursal excision with large gouty tophi. He was given an elbow T-scope brace at his previous visit and comes in today wearing no brace. He states the elbow feels great and he has had no issues since his followup. He is here today for recheck.-[facility] Work Phone: 1([phone]) 541-809106-29-2021 Hospital Discharge instructions* Instructions* Zak Bunn MD - 01/03/2021 Images from the original note were not included. Medication given may have significant effects after discharge. Therefore on the day of surgery: 1) you must be accompanied by a responsible adult upon discharge and for 24 hours after surgery. Do not drive a motor vehicle, operate machinery, power tools or appliance, drink alcoholic beverages, or make critical decisions for 24 hours 2) Be aware of dizziness, which may cause a fall. Change positions slowly. 3) Eating: you may resume your regular diet but it is better to increase intake slowly with mild foods and working up to your regular diet. No greasy, fried or spicy foods today. 4) Nausea/Vomiting: Nausea and vomiting may occur as you become more active or begin to increase food intake. If this should happen, decrease activity and return to liquids. If the problem persists, call your surgeon 5) Pain: Your surgeon may have given you a prescription for pain medication. Take pain medication with food as prescribed. Pain medication may cause constipation, so drink plenty of fluids. If your pain medication does not provide adequate relief, call your surgeon 6) Urinating: Notify your surgeon if you have not urinated within 12 hours after discharge 7) Ice: Apply ice to operative site for 20 min 5-6 times a day or use Polar care as instructed 8) Dressing: [] Remove dressing in 24hr [] Remove dressing in 48hr [] Leave open to air after initial dressing is taken off and incision is dry Do not remove the steri-strips. (no bath/ hot tubs/ pools) [x] Leave dressing in place. Keep dressing/ incision clean and dry 9) Activity Shoulder/ elbow/Hand [] Elevate extremity [x] Sling [] at all times (except for exercises and showering) [x] as needed only for comfort [] Begin daily motion exercises out of sling as instructed [x] Bend and flex fingers frequently [] other Knee/ Ankle/ Foot [] elevate extremity [] crutches [] non-weight bearing to operative extremity [] partial weight bearing [] Full weight bearing as tolerated [] Use brace whenever walking [] other 10) Begin physical therapy if advised by you physician: [] before returning to see you doctor [x] not until you follow up with your doctor 11) call your doctor at [phone] for an appointment (or follow up as scheduled) Contact [facility] office if o Increased redness, swelling, drainage of any kind, and/or pain to surgery site. As well as new onset fevers and or chills. These could signify an infection. o Calf or thigh tenderness to touch as well as increased swelling or redness. This could signify a clot formation. o Numbness or tingling to an area around the incision site or below the incision site (toes). Or ifthe operative extremity becomes cold, blue. o Any rash appears, increased or new onset nausea/vomiting occur. This may indicate a reaction to amedication. o Temp is 38.5 C (101F) 12) If you have any concerns or questions, please call [facility] surgeon pulmonologist intensivist. The 24- hour phone is [phone] 13) If you are unable to contact your surgeon, in an emergency situation, go to the nearest hospital 14) Take your antibiotics as prescribed until completion documented in this [facility] Work Phone: [phone]) 609-202506-29-2021 History of Present illness Narrative* Gaston Li RN - 01/03/2021 1:48 PM EDT Discharge instructions reviewed with pt, verbalized understanding documented in this [facility]Gu[facility] [employer] Phone: 1([phone]) 600-214606-25-2021 History of Present illness NarrativeMrThai Arndt is here for his right elbow. He had some drainage on the elbow over the last few days. He has had a history of gout and previous trouble with this elbow as well. He denies any recent trauma. He is right-hand dominant. Here today as a new patient[facility] Work Phone: [phone]) 811-121606-25-2021 History of Present illness Narrative* Caitlyn Monique RN - 12/30/2020 2:00 PM EDT Pt fully vaccinated. Pt instructed to bring covid vaccine card on dos (written on pre-op instructions) documented in this [facility] [employer] Phone: 1(308) 406-783004-21-2020 History of Past illness Narrative* Problem Noted Date Resolved Date After-cataract of right eye with vision obscured 10/27/2019 02/02/2022 Hyperopia of both eyes with astigmatism and pres byopia 03/31/2019 02/02/2022 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ated mac ular degeneration, left eye, advanced atrophic without subfoveal involvement 04/24/20162021 Senile cataracts of both eyes 01/31/2016 Age-related macular degenera tion with central geographic atrophy 01/31/2016 10/27/2019 Cataract, nuclear sclerotic senile 01/31/2016 05/11/2016 documented as of this encounter (statuses as of 02/07/2022) [facility]04-[facility] History of Past illness Narrative* Problem Noted Date Resolved Date After-cataract of right eye with vision obscured 10/27/2019 02/02/2022 Hyperopia of both eyes with astigmatism and pres byopia 03/31/2019 02/02/2022 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ated mac ular degeneration, left eye, advanced atrophic without subfoveal involvement 04/24/20162021 Senile cataracts of both eyes 01/31/2016 Age-related macular degenera tion with central geographic atrophy 01/31/2016 10/27/2019 Cataract, nuclear sclerotic senile 01/31/2016 05/11/2016 documented as of this encounter (statuses as of 02/07/2022) [facility]* Diagnosis Contusion of right elbow, initial encounter- Primary documented in this encounter [employer] Phone: evaluation note* Diagnosis 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ated macular degeneration, bilateral, advanced atrophic with subfoveal involvement- Primary Legal blindness, as defined in [place] Pseudophakia of both eyes Lens replaced by other means documented in this encounter [facility]Eval[facility]* Diagnosis Onset Date Resolution Status Umbilical hernia acute Atherosclerotic heart diseas e of [place] coronary artery without angina pectoris acute Essential hypertension acute H/O heart artery stent acute Preoperative cardiovascular examination acute Pure hypercholesterolemia ac [facility] Work Phone: Evaluation note* Diagnosis Onset Date Resolution Status Essential hypertension acute H/O heart artery stent acute Pure hypercholesterolemia ac [facility] Work Phone: Evaluation note* Diagnosis Medicare annual wellness visit, subsequent- Primary Atherosclerosis of [place] coronary artery of [place] heart without angina pectoris ([facility]/HCC) Benign essential hypertension (CMS/HCC) Essential hypertension, benign Systolic dysfunction Unspecified heart disease Hyperlipidemia LDL goal <70 ([facility]/HCC) Other and unspecified hyperlipidemia Macular degeneration (senile) of retina Macular degeneration (senile) of retina, unspecified Visual impairment Unspecified visual loss Benign essential hypertension ([facility]/HCC)- Primary Essential hypertension, benign Hyperlipidemia LDL goal <70 (CMS/HCC) Other and unspecified hyperlipidemia Atherosclerosis of [place] coronary artery of [place] heart without angina pectoris (CMS/HCC) Hyperlipidemia LDL goal <100 ([facility]) Other and unspecified hyperlipidemia Essential hypertension ([facility]/HCC) Unspecified essential hypertension Class 2 severe obesity due to excess calories with serious comorbidity and body mass index (BMI) of 36.0 to 36.9 in adult ([facility]) Lower extremity edema Edema Medicare annual wellness visit, subsequent- Primary Benign essential hypertension ([facility]) Essential hypertension, benign Hyperlipidemia LDL goal <70 ([facility]) Other and unspecified hyperlipidemia Class 2 severe obesity due to excess calories with serious comorbidity and body mass index (BMI) of 36.0 to 36.9 in adult ([facility]) Atherosclerosis of [place] coronary artery of [place] heart without angina pectoris ([facility]) Abnormal fasting glucose Prediabetes Other abnormal glucose Acute pain of left shoulder Lower extremity edema Edema documented in this encounter [facility]* Diagnosis Medicare annual wellness visit, subsequent- Primary Atherosclerosis of [place] coronary artery of [place] heart without angina pectoris ([facility]/HCC) Benign essential hypertension ([facility]/HCC) Essential hypertension, benign Systolic dysfunction Unspecified heart disease Hyperlipidemia LDL goal <70 ([facility]/HCC) Other and unspecified hyperlipidemia Macular degeneration (senile) of retina Macular degeneration (senile) of retina, unspecified Visual impairment Unspecified visual loss Benign essential hypertension ([facility]/HCC)- Primary Essential hypertension, benign Hyperlipidemia LDL goal <70 (CMS/HCC) Other and unspecified hyperlipidemia Atherosclerosis of [place] coronary artery of [place] heart without angina pectoris ([facility]/HCC) Hyperlipidemia LDL goal <100 ([facility]) Other and unspecified hyperlipidemia Essential hypertension ([facility]/HCC) Unspecified essential hypertension Class 2 severe obesity due to excess calories with serious comorbidity and body mass index (BMI) of 36.0 to 36.9 in adult ([facility]) Lower extremity edema Edema Medicare annual wellness visit, subsequent- Primary Benign essential hypertension ([facility]) Essential hypertension, benign Hyperlipidemia LDL goal <70 ([facility]/HCC) Other and unspecified hyperlipidemia Class 2 severe obesity due to excess calories with serious comorbidity and body mass index (BMI) of 36.0 to 36.9 in adult (CMS/HCC) Atherosclerosis of [place] coronary artery of [place] heart without angina pectoris (CMS/HCC) Abnormal fasting glucose Prediabetes Other abnormal glucose Acute pain of left shoulder Lower extremity edema Edema Morbid (severe) obesity due to excess calories (CMS/HCC) Hyperlipidemia, unspecified (CMS/HCC) Body mass index (BMI) 36.0-36.9, adult documented in this encounter [facility]* Diagnosis Onset Date Resolution Status Admit Date Right carpal tunnel syndrome acute February 02, 2025 9:39am [facility] Work Phone: Hospital Discharge instructions* Attachments The following attachments cannot be sent through Care Everywhere. * Contusion ([place]agu[place]) documented in [facility] Work Phone: reason for referral (narrative)No reason for referral information availableWMarietta Memorial Hospital Work Phone: Summary Purpose Family History No Family History Records FoundNo Family History Records FoundNo Family History Records FoundNo Family History Records FoundNo Family History Records FoundNo Family History Records FoundNo Family History Records FoundNo Family History Records FoundNo Family History Records Found Advance Directives No Advanced Directives Records FoundDocuments on File Type Date Recorded Patient Food Services Director Expl anation Advance Directives and Living Will Power of Boxing Instructor Documents on File Type Date Recorded Patient Food Services Director Expl anation ACP-Advance Directive ACP-Power of Boxing Instructor Latest Code Status on File Code Status Date Activated Date Inactivated Comments Full Code 01/03/2021 1:30 PM Documents on File Type Date Recorded Patient Food Services Director Expl anation ACP-Advance Directive ACP-Power of Boxing Instructor Latest Code Status on File Code Status Date Activated Date Inactivated Comments Full Code 01/03/2021 1:30 PM 01/03/2021 4:06 PM Documents on File Type Date Recorded Patient Food Services Director Expl anation Advance Directive(s) 05/10/2016 9:52 AM Advance Directive(s) 05/10/2016 10:00 AM Advance Directive(s) 05/03/2016 7:24 AM Advance Directive Response Recorded Date/ Time Name of Medical Power of Boxing Instructor SON March 05, 2022 8:58am Living Will Yes March 05 8:58am Power of Boxing Instructor Yes March 05, 2 022 8:58am Advance Directive Response Recorded Date/ Time Advance Directives No December 10 7:03am Living Will No December 10, 2022 7 :03am Power of Boxing Instructor No December 10, 2022 7:03am Latest Code Status on File Code Status Date Activated Date Inactivated Comments Full Code 01/03/2021 1:30 PM 01/03/2021 4:06 PM Advance Directive Response Recorded Date/ Time Living Will No December 10, 2022 7 :03am Do you have a Healthcare Power of Boxing Instructor? No December 10, 2022 7:03am Advance Directives No December 10 7:03am Advance Directive Response Recorded Date/ Time Advance Directives No December 10 7:03am Chief Complaint * Rt elbow pain and swelling * asp with pcp this am * xrays today * Rt elbow pain and swelling * asp with pcp this am * xrays today f/u Stable right elbow, status post olecranon bursal excision with large gouty tophi. Medications Administered Section Active Administered Medications - up to 3 most recent administrations Medication Order MAR Action Action Date Dose Rate Site fluorescein-benoxinate 0.25-0.4 % 1 Drop (FLURESS) 1 Drop, BOTH EYES, DIRECTED, Starting on Sat02/07/22 at 1500, Until Kiara 02/08/22 at 0259, Administer for applanation tonometry. In the event of a Fluress shortage, administer [place]-Fluor 1 drop into both eyes as directed for applanation tonometry, [facility] MED ORDERS Given 02/07/2022 3:00 PM EDT 1 Drop PHENYLephrine 2.5 % 1 Drop (AK-DILATE, SIXTO-SYNEPHRINE) 1 Drop, BOTH EYES, DIRECTED, Starting on Sat02/07/22 at 1500, Until Kiara 02/08/22 at 0259, Administer for dilation PROTECT FROM LIGHT, [facility] MED ORDERS Given 02/07/2022 3:00 PM EDT 1 Drop tropicamide 1 % 1 Drop (MYDRIACYL) 1 Drop, BOTH EYES, DIRECTED, Starting on Sat02/07/22 at 1500, Until Kiara 02/08/22 at 0259, Administer for dilation, [facility] MED ORDERS Given 02/07/2022 3:00 PM EDT 1 Drop Chief Complaint and Reason for Visit Chief Complaint Hernia CLEARANCE FOR HERNIA LAP ROBOTIC UMBILICAL HERNIA WITH MESH LAP ROBOTIC UMBILICAL HERNIA WITH MESH Reason for Visit Umbilical hernia Atherosclerotic heart disease of [place] coronary artery without angina pectoris Essential hypertension H/O heart artery stent Preoperative cardiovascular examination Pure hypercholesterolemia Chief Complaint 6 M FU CAD LEXISCAN CAD LEXISCAN ABNORMAL STRESS TEST ABNORMAL STRESS TEST Reason for Visit Essential hypertensi on H/O heart artery stent Pure hypercholesterolemia Chief Complaint 6 M FU CAD LEXISCAN CAD LEXISCAN ABNORMAL STRESS TEST ABNORMAL STRESS TEST ABN STRESS TEST, CAD/ASHD Reason for Visit Essential hypertensi on H/O heart artery stent Pure hypercholesterolemia Chief Complaint Admit Date 1 Y FU October 01, 2024 3:0 4pm NEED ORDER. October 01, 2024 3:4 2pm Reason for Visit Admit Date Essential hypertension October 01, 2024 3:04pm H/O heart artery stent October 01, 2024 3:04pm Pure hypercholesterolemia October 01 3:04pm Chief Complaint Admit Date RIGHT HAND February 02, 2025 9:39 am Reason for Visit Admit Date Right carpal tunnel syndrome February 02, 2025 9:39am Additional Source Comments (unrecognized sect ion and content) No Status Records FoundNo Status Records FoundNo Status Records FoundNo Status Records FoundNo Status Records FoundNo Status Records FoundNo Status Records FoundNo Status Records FoundNo Status Records Found INFORMATION SOURCE (unrecogn ized section and content) DATE CREATED AUTHOR 06/16/2018 [facility] DATE CREATED AUTHOR AUTHOR'S ORGANIZ ATION 06/16/2018 [facility] DATE CREATED AUTHOR AUTHOR'S ORGANIZ ATION 01/02/2021 [facility] DATE CREATED AUTHOR AUTHOR'S ORGANIZ ATION 01/07/2021 [facility] [place] DATE CREATED AUTHOR AUTHOR'S ORGANIZ ATION 01/30/2021 [facility] DATE CREATED AUTHOR AUTHOR'S ORGANIZ ATION 02/11/2022 [facility] DATE CREATED AUTHOR AUTHOR'S ORGANIZ ATION 02/10/2024 [facility] DATE CREATED AUTHOR AUTHOR'S ORGANIZ ATION 10/30/2024 [facility] DATE CREATED AUTHOR AUTHOR'S ORGANIZ ATION 02/23/2025 [facility] Reason for Visit (unrecogniz ed section and content) Status Reason Specialty Diagnoses / Procedures Referre d By Contact Referred To Contact Diagnoses Septic olecranon bursitis of right elbow RIGHT ELBOW SEPTIC BURSITIS Procedures RI INCIS/DRAIN FOREARM DEEP ABSCESS RIGHT ELBOW IRRIGATION AND DEBRIDEMENT, SUPINE Zak Bunn MD [address] [place] [address] [facility] Reason Comments Elbow Pain Fell onto right elbo w this afternoon Reason Comments Nonexudative Macular Degeneration Evalua tion OCT Reason Comments Results Scheduled Active and Recently Administ ered Medications (unrecognized section and content) Medication Order 01/01/2021 01/02/2021 01/03/2021 ceFAZolin (ANCEF) 2000 mg in dextrose 3 % 50 mL IVPB (duplex) (COMPLETED) 2,000 mg, Intravenous, ONCE, 1 dose, On Sat01/03/21 at 1030, IVPB within one hour of incision, Pre-op (day of surgery) 1203 (Given - Provid er: Omayra Ramires MD) lidocaine PF 1 % injection 2 mL (COMPLETED) 2 mL, Intradermal, ONCE, On Sat01/03/21 at 1030, For 1 dose, Pre-op (day of surgery) 1012 (Given - Provid er: Gaston Li RN - Comment: left hand) sodium chloride flush 0.9 % injection 10 mL 10 mL, Intravenous, EVERY 12 HOURS SCHEDULED (2 times per day), First dose on Sat01/03/21 at 2100, Post-op 2100 (Due) Continuous Medication Order 01/01/2021 01/02/2021 01/03/2021 0.9 % sodium chloride infusion 50 mL/hr, Intravenous, at 50 mL/hr, CONTINUOUS, Starting on Sat01/03/21 at 1400, For 1 hour, D/c IV fluids when taking po fluids, Post-op 1400 (Due) lactated ringers infusion Intravenous, at 100 mL/hr, CONTINUOUS, Starting on Sat01/03/21 at 1030, Pre-op (day of surgery) 1012 (New Bag - Prov ider: Gaston Li RN) PRN Medication Order 01/01/2021 01/02/2021 01/03/2021 0.9 % sodium chloride infusion 25 mL, Intravenous, at 100 mL/hr, PRN, If patient receiving piggyback infusions without ordered maintenance IV fluids or with frequent/long duration piggyback infusions, Starting on Sat01/03/21 at 1330, Administer at the same rate as the piggyback being infused., Post-op diphenhydrAMINE (BENADRYL) injection 12.5 mg 12.5 mg, Intravenous, ONCE PRN, Itching, Starting on Sat01/03/21 at 1205, For 1 dose, PACU only fentaNYL (SUBLIMAZE) injection 25 mcg 25 mcg, Intravenous, EVERY 10 MIN PRN, Pain Moderate (4-6), Starting on Sat01/03/21 at 1205, For 4 doses, Phase I - Initial therapy for moderate pain., PACU only HYDROcodone-acetaminophen (NORCO) 5-325 MG per tablet 1 tablet(Linked Group 1) 1 tablet, Oral, PRN, Pain Moderate (4-6), Starting on Sat01/03/21 at 1205, For 1 dose, PHASE II, PACU only HYDROcodone-acetaminophen (NORCO) 5-325 MG per tablet 2 tablet(Linked Group 1) 2 tablet, Oral, PRN, Pain Severe (7-10), Starting on Sat01/03/21 at 1205, For 1 dose, PHASE II, PACU only meperidine (DEMEROL) injection 12.5 mg 12.5 mg, Intravenous, EVERY 5 MIN PRN, Shivering, , Starting on Sat01/03/21 at 1205, May give every 5 minutes to max of 50mg., PACU only metoclopramide (REGLAN) injection 10 mg 10 mg, Intravenous, ONCE PRN, Nausea, Starting on Sat01/03/21 at 1205, For 1 dose, Secondary antiemetic therapy if not given intraoperatively., PACU only morphine (PF) injection 2 mg(Linked Group 2) 2 mg, Intravenous, EVERY 2 HOURS PRN, Pain Moderate (4-6), Starting on Sat01/03/21 at 1330, If oral and IV narcotics ordered, use oral first and only use IV if oral is ineffective or cannot take oral. Do Not give oral and IV within 1 hour of each other unless specifically ordered., Post-op morphine injection 4 mg(Linked Group 2) 4 mg, Intravenous, EVERY 2 HOURS PRN, Pain Severe (7-10), Starting on Sat01/03/21 at 1330, If oral and IV narcotics ordered, use oral first and only use IV if oral is ineffective or cannot take oral. Do Not give oral and IV within 1 hour of each other unless specifically ordered., Post-op ondansetron (ZOFRAN) injection 4 mg 4 mg, Intravenous, ONCE PRN, Nausea, Starting on Sat01/03/21 at 1205, For 1 dose, Initial antiemetic therapy., PACU only oxyCODONE (ROXICODONE) immediate release tablet 5 mg 5 mg, Oral, EVERY 4 HOURS PRN, Pain Severe (7-10), Starting on Sat01/03/21 at 1330, Post-op 1345 (Given - Provid er: Gaston Li RN) sodium chloride 0.9 % irrigation (COMPLETED) CONTINUOUS PRN, Starting on Sat01/03/21 at 1225, Intra-op 1225 (New Bag - Prov ider: Zak Bunn MD - Comment: Used as needed T/O-HH) sodium chloride flush 0.9 % injection 10 mL 10 mL, Intravenous, PRN, Line Care, Starting on Sat01/03/21 at 1330, After every IV line use, Post-op Linked Groups Order Group 1: HYDROcodone-acetaminophen (NORCO) 5-325 MG per tablet 1 tabletJump to med 1 tablet, Oral, PRN, Pain Moderate (4-6), Starting on Sat01/03/21 at 1205, For 1 dose
PHASE II
PACU only Or HYDROcodone-acetaminophen (NORCO) 5-325 MG per tablet 2 tabletJump to med 2 tablet, Oral, PRN, Pain Severe (7-10), Starting on Sat01/03/21 at 1205, For 1 dose
PHASE II
PACU only Group 2: morphine (PF) injection 2 mgJump to med 2 mg, Intravenous, EVERY 2 HOURS PRN, Pain Moderate (4-6), Starting on Sat01/03/21 at 1330
If oral and IV narcotics ordered, use oral first and only use IV if oral is ineffective or cannot take oral. Do Not give oral and IV within 1 hour of each other unless specifically ordered.
Post-op Or morphine injection 4 mgJump to med 4 mg, Intravenous, EVERY 2 HOURS PRN, Pain Severe (7-10), Starting on Sat01/03/21 at 1330
If oral and IV narcotics ordered, use oral first and only use IV if oral is ineffective or cannot take oral. Do Not give oral and IV within 1 hour of each other unless specifically ordered.
Post-op Scheduled Medication Order 02/22/2021 02/23/2021 02/24/2021 acetaminophen (TYLENOL) tablet 1,000 mg (COMPLETED) 1,000 mg, Oral, ONCE, On Sat02/24/21 at 2002, For 1 dose, Maximum dose of acetaminophen is 4000 mg from all sources in 24 hours. 2015 (Given - Provid er: Jacobo Ramesh RN) Ordered Prescriptions (unrec ognized section and content) Prescription Sig Dispensed Refills Start Date End Da te predniSONE (DELTASONE) 10 MG tablet Take 6 tablets by mouth daily for 5 doses 30 tablet 0 02/24/2021 03/01/2021 ketorolac (TORADOL) 10 MG tablet Take 1 tablet by mouth every 6 hours as needed for Pain 20 tablet 0 02/24/2021 sulfamethoxazole-trimeth oprim (BACTRIM DS;SEPTRA DS) 800-160 MG per tablet Take 1 tablet by mouth 2 times daily 20 tablet 0 02/24/2021 Care Teams (unrecognized sec tion and content) Powder Core Tester Relationship Specialty Start Date End Date Jeaneth Lewis MD [address] [place] [address] PCP - General Internal Medicine 12/30/20 Powder Core Tester Relationship Specialty Start Date End Date Jeaneth Lewis MD PCP - General Internal Medicine 05/12/10 Powder Core Tester Relationship Specialty Start Date End Date Jeaneth Lewis MD PCP - General Internal Medicine 05/12/10 Team Status: Active Member Role Status Dates [facility] Primary Care Provider Active Team Status: Inactive Member Role Status Dates Out of [facility] Doctor Primary Care Provider, Referring Pr ovider Active Kamla Albarado CONTINUOUS DRIER HELPER, CONTINUOUS DRIER HELPER-C Attending Provider Active Team Status: Active Member Role Status Dates Kamla Albarado CONTINUOUS DRIER HELPER, CONTINUOUS DRIER HELPER-C Referring Provider, Other Provi rocky Active [facility] Primary Care Provider Active Dr. Parminder Perez MD Attending Provider Active Team Status: Active Member Role Status Dates [facility] Primary Care Provider Active Dr. Parminder Perez MD Other Provider Active Kamla Albarado CONTINUOUS DRIER HELPER, CONTINUOUS DRIER HELPER-C Attending Provider Active Team Status: Inactive Member Role Status Dates Kamla Albarado CONTINUOUS DRIER HELPER, CONTINUOUS DRIER HELPER-C Attending Provider, Referring P rovider Active [facility] Primary Care Provider Active Team Status: Inactive Member Role Status Dates [facility] Primary Care Provider Active Dr. Parminder Perez MD Attending Provider, Referring Pro vider Active Team Status: Active Member Role Status Dates Dr. Parminder Perez MD Attending Provider Active Powder Core Tester Relationship Specialty Start Date End Date Jeaneth Lewis MD [address] [place] [id number] PCP - General Geriatric Medicine 04/24/23 Jeaneth Lewis MD [address] [place] [id number] PCP - [facility] 07/08/23 04/06/60 Deanna Mejias NP [address] [place] [id number] Nurse Practitioner Family Medicine 04/25/23 Powder Core Tester Relationship Specialty Start Date End Date Jeaneth Lewis MD [address] [place] [address] PCP - General Internal Medicine 12/30/20 Team Status: Inactive Member Role Status Dates Out of [facility] Doctor Primary Care Provider Active Start: October 01, 2024 End: October 01, 2024 Out of Town Doctor Referring Provider Active Sta rt: October 01, 2024 End: October 01, 2024 Dr. Parminder Perez MD Attending Provider Active S tart: October 01, 2024 End: October 01, 2024 Team Status: Inactive Member Role Status Dates [facility] Primary Care Provider Active Sta rt: October 01, 2024 End: October 01, 2024 Dr. Parminder Perez MD Attending Provider Active S tart: October 01, 2024 End: October 01, 2024 Dr. Parminder Perez MD Referring Provider Active S tart: October 01, 2024 End: October 01, 2024 Powder Core Tester Relationship Specialty Start Date End Date Jeaneth Lewis MD [address] [place] [id number] PCP - General Geriatric Medicine 04/24/23 Jeaneth Lewis MD [address] [place] [id number] PCP - [facility] 07/08/23 04/06/60 Deanna Mejias NP [address] [place] [id number] Nurse Practitioner Family Medicine 04/25/23 Team Status: Inactive Member Role/Relationship Status Dates Frankie Cr MD Attending Provider Active St art: February 02, 2025 End: February 02, 2025 Source Comments (unrecognize d section and content) In the event this informatio n is protected by the Federal Confidentiality of Alcohol and Drug Abuse Patient Records regulations: The Federal rules restrict any use of the information to criminally investigate or prosecute any alcohol or drug abuse patient.[facility] Campus[facility] the event this information is protected by the Federal Confidentiality of Alcohol and Drug Abuse Patient Records regulations: The Federal rules restrict any use of the information to criminally investigate or prosecute any alcohol or drug abuse patient.[facility] Goals (unrecognized section and content) Goals may be documented in a n alternate sectionGoals may be documented in an alternate sectionGoals may be documented in an alternate sectionGoals may be documented in an alternate section FOR RECORDS PERTAINING TO PATIENTS WHO ARE OR HAVE BEEN ENROLLED IN A CHEMICAL DEPENDENCY/SUBSTANCEABUSE PROGRAM, SOME INFORMATION MAY BE OMITTED. This clinical summary was aggregated from multiple sources. Caution should be exercised in using it in the provision of clinical care. This summary normalizes information from multiple sources, and as a consequence, information in this document may materially change the coding, format and clinical context of patient data. In addition, data may be omitted in some cases. CLINICAL DECISIONS SHOULD BE BASED ON THE PRIMARY CLINICAL RECORDS. [facility]. provides no warranty or guarantee of the accuracy or completeness of information in this document.
--- NOTE | 2025-02-24 08:40 | NEURO_ITS ---
NCS and/or EMG Patient Report Ordering Doctor: Frankie Cr DATE OF SERVICE: 02/24/25 Sonny presents with complaints of numbness and tingling in both hands. Electrodiagnostic findings: Right median motor nerve demonstrates significantly prolonged distal latency with reduced amplitude. Left median motor nerve de monstrates prolonged distal latency with reduced amplitude and reduced conduction velocity. Right median and right ulnar F waves within normal limits. Borderline prolonged left median F?wave. Ulnar motor response within normal limits bilaterally. Absent right median sensory latency at the wrist. Prolonged left median sensory response. Absent right median palmar response. Needle EMG testing was tested in the upper limbs. All muscles tested showed no evidence of denervation with normal motor unit action potentials. Electrodiagnostic impression: This is an abnormal study of the upper limbs. 1. Electrodiagnostic findings suggestive of bilateral median mononeuropathy. This is consistent with a severe right carpal tunnel syndrome and a moderate to severe left carpal tunnel syndrome. Multi Select Codes Neurology Neurology Interp Codes: 97059-47 Musc test done w/n test comp (interp) (2) and 51591-58 Nrv cndj test 9-10 studies (interp)
== END | disposition home or self-care (01) ==
PROVIDERS: Referring Provider Orthopaedic Surgery Sports Medicine; Visit Provider Orthopaedic Surgery Sports Medicine
DX: G56.01 Carpal tunnel syndrome, right upper limb (principal)
CPT/HCPCS: 95886; 95912

== ENCOUNTER 2025-03-31 05:59 | Day surgery (SDC) | payer MEDICARE, SELFPAY ==
--- NOTE | 2025-03-17 15:51 | PAT.ANESEVAL ---
Pre-Assessment Diagnosis/Proposed Procedure Planned Operative Procedure(s): RIGHT ENDOSCOPIC CARPAL TUNNEL RELEASE Anesthesia History Anesthesia History - academic affairs assistant: Anesthesia History - academic affairs assistant Hx Hospitalization No 03/17/25 12:49 Any Problems With Anesthesia No 03/17/25 12:49 Cholinesterase deficiency No 03/17/25 12:49 You/Your Family Experience No 03/17/25 12:49 fever (hyperthermia) with Relationship Recent Exposure to Contagious No 03/19/22 10:00 Disease Does patient have nerve No 03/17/25 12:49 stimulator Patient instructed to have device shut off --Does patient have Pacemaker or ICD? When Was Last Pacemaker Check QUESTION #4 FULL TEXT: You/Your Family Experience fever (hyperthermia) with Anesthesia Last Oral Intake Last Oral intake: Last Oral Intake NPO since Meds taken in AM with sips of water? Meds patient instructed to take am of surgery PONV PONV - academic affairs assistant: PONV - academic affairs assistant Female No 03/17/25 12:49 HX of Motion Sickness No 03/17/25 12:49 HX of N/V After Surgery No 03/17/25 12:49 Non-Smoker Yes 03/17/25 12:49 Duration of Surgery greater No 03/17/25 12:49 than 60 minutes Number of Risk Factors 1 03/17/25 12:49 PONV Score Low Risk 03/17/25 12:49 Height & Weight Height & Weight: Anesthesia: Height & Weight Height 5 ft 4 in 03/02/25 09:06 Respiratory Assessment Respiratory Assessment - academic affairs assistant: Respiratory Tract Infection Hx - academic affairs assistant Hx Respiratory Tract Infection No 03/17/25 12:49 STOP Sleep Apnea STOP Sleep Apnea - academic affairs assistant: STOP Sleep Apnea - academic affairs assistant Hx Hypertension Yes: CONTROLLED WITH MED 03/17/25 12:49 Hx Sleep Apnea No 03/17/25 12:49 CPAP No 03/19/22 13:07 BIPAP Do you snore loudly (louder No 03/17/25 12:49 than talking or can be heard Do you often feel tired/ No 03/17/25 12:49 fatigued/ sleepy during daytime? Has anyone observed you stop No 03/17/25 12:49 breathing during sleep? STOP Results Negative 03/17/25 12:49 QUESTION #5 FULL TEXT : Do you snore loudly (louder than talking or can be heard through closed doors)? Tobacco Use History Tobacco Use History - academic affairs assistant: Tobacco Use History - academic affairs assistant Tobacco Use Smoking Status Never smoker 03/17/25 12:49 Hx Tobacco Use No 03/17/25 12:49 Years Smoking Packs Smoked per Day Smoking Cessation Date was within the last 15 years Hx Smoking Cessation Date Hx Smoking Cessation Counseling Hematologic Medial History Hematologic Hx - academic affairs assistant: Hematologic Medical Hx - community midwife Hx of Blood Transfusion No 03/17/25 12:49 Hx of Transfusion in last 3 No 03/17/25 12:49 Months Date of Last Transfusion (if within last 3 months) Ever experience any problems No 03/17/25 12:49 with transfusion(s)? Specify any problems Hx of Preganancy in last 3 N/A 03/17/25 12:49 Months Nurse Filling Out Transfusion DSCHRIBER 03/17/25 12:49 & Questions: Date: 03/17/25 03/17/25 12:49 Time: 12:50 03/17/25 12:49 Patient unable to answer at this time (ie. confused, unrespo /Reproduction History /Reproductive History - academic affairs assistant: /Reproductive Hx- academic affairs assistant Hx Now No 03/17/25 12:49 Gestational Age (in weeks): EDC: Hx Hx Para Hx Section SAB No 03/17/25 12:49 [facility] Medical History (Updated 03/17/25 @ 12:56 by Imani Quispe) Uses wheelchair Easy bruising Dietary restriction Shortness of breath on exertion History of echocardiogram Bilateral carpal tunnel syndrome Right carpal tunnel syndrome Atherosclerotic heart disease of [place] coronary artery without angina pectoris Old myocardial infarction Pure hypercholesterolemia History of left heart catheterization (LHC) (~2000) Essential hypertension Legally blind Arthritis Gout High cholesterol Injury of head and neck Non-smoker History of stress test Cardiology follow-up encounter Hypertension Heart attack Hypertension Home Medications ?Medication ?Instructions ?Recorded ?Last Taken ?Type aspirin 81 mg tablet,delayed 81 mg PO DAILY 01/31/22 12/10/22 History release (Adult Aspirin Regimen) atorvastatin 20 mg tablet 20 mg PO QHS 01/31/22 Unknown History lisinopril 10 mg tablet 10 mg PO DAILY 01/31/22 Unknown History allopurinol 100 mg tablet 100 mg PO DAILY PRN GOUT 01/06/24 Unknown History vitamins A,C,Y-egqa-tkeacg 4,296 1 cap PO DAILY 01/06/24 Unknown History mcg-226 mg-90 mg capsule (PreserVision AREDS) Allergy/AdvReac Type Severity Reaction Status Date / Time No Known Allergies Allergy Verified 03/17/25 12:47 Surgical History (Updated 03/17/25 @ 12:56 by Imani Quispe) History of cardiac catheterization Hx of umbilical hernia repair History of cardiac catheterization H/O heart artery stent S/P appendectomy S/P hip replacement Social History Smoking Status: Never smoker alcohol intake: never substance use type: does not use caffeine: Yes Type: coffee Number of servings: 2 and tea Audit: Pertinent Findings Pertinent Findings Consult pertinent findings: Cardiology visit 10/01/2024. 84-year-old with CAD and [place], PCI details unknown, hyperlipidemia hypertension. Cardiac catheter 12/10/2022 following an abnormal stress test. His cardiac catheter result demonstrated patent stent in the LAD with mild disease noted in the vessel, left circumflex artery and ramus intermedius. Totally occluded right coronary artery with [id number] collaterals. Medical therapy was recommended. Echo 12/19/2022 demonstrated ejection fraction 50%, stage I diastolic dysfunction, and structurally normal valves. Recommendation Anesthesia Recommendation Anesthesia recommendation: OPTIMIZED for anesthesia
[2025-03-31] VITALS (8 sets, daily range): BP systolic 86–109; BP diastolic 50–71; PULSE 64–70; RESP 16–18; TEMP 35.8–36.6; O2SAT 92–94; BMI 35.5
--- OUTSIDE RECORDS SUMMARY | 2025-03-31 06:02 | XMS RPT_ITS | CCD ---
Author Organization [facility] Care Team Providers Care Master Barber Name Role Phone Ham Soria Unavailable Unavailable Ham Soria Unavailable Unavailable No Doctor Assigned, Nodr Unavailable Unavail able Monica Buckner Primary Care Provider Marvin seymour [place], [place] Unavailable Unavailable Unavailable [place] Primary Care Provider ZAK BUNN Referring Unavailable [place], [place] Primary Care Unavailable [place], [place] Primary Care Unavailable ZAK BUNN Admitting Unavailable ZAK BUNN Attending Unavailable Joshua COSBY [facility] Primary Care Provider [phone] Dr. Clem Steen Attending Provider Dr. Ankit Kinney Attending Provider [phone] [place], [place] Primary Care Provider Unavailesther watkins [place], [place] Referring Provider Unavailable Dr. Clem Steen Referring Provider [phone] Dr. Clem Steen Other Provider Dr. Chino Macias Other Provider [place], [place] Primary Care Provider [facility] Doctor, Out of Primary Care Provider Marvin Mitchell Doctor, Out of Referring Provider Unavailab jesu Albarado FARM EQUIPMENT ENGINEER, FARM EQUIPMENT ENGINEER-C Kamla Attending Provider Per FARM EQUIPMENT ENGINEER, FARM EQUIPMENT ENGINEER-C Kamla Referring Provider Per HENSLEY, FARM EQUIPMENT ENGINEER-C Kamla Other Provider [place], [place] Primary Care Provider [phone] Dr. Parminder Perez Attending Provider [phone] Dr. Parminder Perez Other Provider [place], [place] Primary Care Unavailable DEANNA MEJIAS Referring Unavailab JEANETH Bartlett Primary Care Unavailable DEANNA MEJIAS Referring Unavailab jesu Lewis MD, [facility] Primary Care Provider [phone] Randell HENSLEY, Deanna Unavailable Joshua COSBY, [place] Mj Unavailable [phone] [place], [place] Primary Care Provider Town Doctor, Out of Primary Care Provider Marvin seymour [facility] Doctor, Out of Referring Provider Fadi Francisco MD, Dr. Zurita Attending Provider [phone] [place], [place] Primary Care Provider Dr. Parminder Perez MD Referring Provider [phone] [facility] Attending Unavailable DEANNA MEJIAS Attending Unavailable DEANNA MEJIAS Attending Unavailable Frankie Cr MD Attending Provider [phone] Frankie Cr MD Referring Provider [facility] Primary Care Provider UnavailFrankie Renteria MD Other Provider [phone] [facility] Primary Care Provider UnavailDr. Alireza De Dios MD Attending Provider [facility] Referring Provider Unavailable Frankie Cr Attending Unavailable Parminder Perez Referring Unavailable [facility] Primary Care Unavailable Parminder Perez Attending Unavailable Frankie Cr Attending [facility] [place] [facility] [place] Referring [facility] [place] Primary Care Unavailable Frankie Cr Referring Unavailable Frankie Cr Consulting Unavailable Alireza Ellison Attending [facility]available [facility] [place] Primary Care Unavailable Frankie Cr Attending Unavailable Frankie Cr Referring Unavailable Frankie Cr Attending [facility] [place] Primary Care Unavailable Frankie Cr Referring Unavailable Town Doctor, Out of Primary Care Unavailable [facility] Doctor, Out of Referring Unavailable Parminder Perez Attending Unavailable Allergies Allergy Classification Reported Allergen(s) Allergy Type Date of Onset Reaction(s) Facility POISON RAJ EXTRACT (2 sources) POISON RAJ EXTRACT Drug Allergy 1 Hives, Itching, Swelling [facility] (1 source) No Known Medication Allergies; Translations: [No Known Medication Allergies] Propensity to adverse reactions to drug (disorder) [facility] Repository (9 sources) POISON RAJ EXTRACT Drug Allergy 1 Hives, Itching, Swelling [facility] Medications Current Medications Medication Drug Class(es) Dates [...] aspirin 81 mg delayed release oral tablet (19 sources) Platelet Aggregation Inhibitor, Nonsteroidal Anti-inflammatory Drug [...] twice daily. atorvastatin 20 mg oral tablet (20 sources) HMG-CoA Reductase Inhibitor Start: 2 take [...] mg / probenecid 500 mg oral tablet (20 sources) Start: End: Probenecid-Colchicin e 500-0.5 mg tablet Active 1 [...] 02/24/2021 Active lisinopril 10 mg oral tablet (14 sources) Angiotensin Converting Enzyme Inhibitor Start: 01-31-2022 [...] Start: 12-30-2020 take 1 tablet by bethel [facility] every twelve hours Sulfamethoxazole-Trimethoprim 800-160 MG Oral Tablet Take 1 tab every 12 hours for 7 days Quantity: 14 Refills: 0 Ordered: 30-Dec-2020 Zak Bunn MD Start : 30-Dec-2020 Active tropicamide 10 mg/ml ophthalmic solution (2 sources) Anticholinergic Start: 02-07-2022 End: 02-08-2022 tropicamide 1 % 1 Drop (MYDRIACYL) Vitamins A,C,X-Rfao-Plqtiz (Preservision Areds) 4,296 mcg-226 mg-90 mg capsule (4 sources) Start: 01-06-2024 Vitamins A,C,A-Qqxb-Yyfwqu (Preservision Areds) 4,296 mcg-226 mg-90 mg capsule [...] on above: Take 2 tablets by mo [facility] every 8 hours. acetaminophen 325 mg / oxyCODONE hydrochloride 5 mg oral tablet (7 sources) Opioid Agonist Start: 03-19-20 End: 04-04-20 Oxycodone-Acetaminophe n (Percocet) 5-325 mg tablet Discontinued 1 {tbl} PO Q4H as needed for pain 20 5 0 March 19, 2022 2022 8:56am Umbilical hernia Umbilical hernia without obstruction or gangrene allopurinol 100 mg oral tablet (17 sources) Xanthine Oxidase Inhibitor Start: 01-05-20 End: [...] tablet (2 sources) Muscle Relaxant Start: 02-03-20 16 take 1 tablet by mouth every twelve [...] Comment on above: Take 1 capsule by [facility] twice daily. 10 ml lidocaine hydrochloride 10 mg/ml injection (3 sources) Antiarrhythmic, Amide Local Anesthetic Start: 01-04-20 21 End: 01-04-20 21 lidocaine PF 1 % [...] above: Take by mouth twice daily. Vitamins A,C,P-Jtkr-Vjoage (Preservision Areds) 14,320-226-200 fftf-no-zvnt capsule (7 sources) Start: 01-31-2022 End: 01-06-2024 Vitamins A,C,Y-Mmye-Ojamoe (Preservision Areds) 14,320-226-200 dgjg-yd-cmax capsule Discontinued 1 NMA PO TWICE A DAY January 31, 2022 12:00am January 06, 2024 9:24am Start: 01-31-2022 take 1 capsule by mo [facility] twice daily Vitamins A,C,H-Vhnb-Vozveb (Preservision Areds) 14,320-226-200 iynv-cu-rsbw capsule Active 1 CAP PO TWICE A DAY January 31, 2022 12:00am Problems Active Problems Problem Classification Problem Date Documented Da te Episodic/Chronic Abdominal hernia (8 sources) Umbilical hernia; Translations: [Umbilical hernia without obstruction or gangrene] Episodic Blindness and vision defects (11 sources) 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[place]; Translations: [Legal blindness, as defined in [place]] Onset: 02-07-2022 Chronic Cataract (3 sources) Bilateral pseudophakia; Translations: [Presence of intraocular lens] Onset: 05-04-2016 Chronic Coronary atherosclerosis and other heart disease (20 sources) Old myocardial infarction; Translations: [Old myocardial infarction] Onset: 04-25-2023 Chronic Coronary atherosclerosis and other heart disease (3 sources) Presence of coronary angioplasty implant and graft; Translations: [Percutaneous transluminal coronary angioplasty status] Episodic Disorders of lipid metabolism (20 sources) Pure hypercholesterolemia ; Translations: [Pure hypercholesterolemia , unspecified] Onset: 04-25-2023 Chronic Essential hypertension (20 sources) Essential hypertension; Translations: [Essential (primary) hypertension] Onset: 04-25-2023 Chronic Osteoarthritis (4 sources) Osteoarthritis of right hip joint; Translations: [Unilateral primary osteoarthritis, right hip] Onset: 05-17-2015 11-09-2015 Chronic Other aftercare (7 sources) Follow-up status; Translations: [Encounter for follow-up examination after completed treatment for conditions other than malignant neoplasm] 03-08-2022 Episodic Comment on above: 5-6 YRS AGO/[facility] Other and ill-defined heart disease (4 sources) Systolic dysfunction; Translations: [Heart disease, unspecified] Onset: 04-25-2023 04-25-2023 Chronic Other connective tissue disease (11 sources) History of repair of hip joint; Translations: [Presence of unspecified artificial hip joint] Onset: 04-25-2023 01-31-2022 Chronic Comment on above: 1999,2004 Other connective tissue disease (5 sources) Abscess [...] 04-25-2023 04-25-2023 Chronic Other nervous system disorders (6 sources) Carpal tunnel syndrome of right wrist; Translations: [Carpal tunnel syndrome, right upper limb] 02-02-2025 Chronic Other nervous system disorders (4 sources) Carpal tunnel syndrome; Translations: [Carpal tunnel syndrome, bilateral upper limbs] 03-02-2025 Chronic Other nervous system disorders (2 sources) Carpal tunnel syndrome, right upper limb; Translations: [Carpal tunnel syndrome, right upper limb] Onset: 03-03-2025 Chronic Other non-traumatic joint disorders (5 sources) Pain in elbow; Translations: [Pain in joint, upper arm] Episodic Other nutritional; endocrine; and metabolic disorders (6 sources) Severe obesity; Translations: [Class 2 severe obesity due to excess calories with serious comorbidity and body mass index (BMI) of 36.0 to 36.9 in adult ([facility])] Onset: 01-27-2024 04-27-2024 Chronic Other nutritional; endocrine; and metabolic disorders (2 sources) Obesity caused by energy imbalance; Translations: [Morbid (severe) obesity due to excess calories] 10-27-2024 Chronic Other nutritional; endocrine; and metabolic disorders (2 sources) Body mass index 30+ - obesity; Translations: [Body mass index (BMI) 36.0-36.9, adult] 10-27-2024 Chronic Other screening for suspected conditions (not mental disorders or infectious disease) (6 sources) Cardiovascular stress test abnormal; Translations: [Abnormal result of other cardiovascular function study] 11-22-2022 Episodic Residual codes; unclassified (14 sources) History of cardiac catheterization; Translations: [Other [...] Test Name Value Interpretation Reference Range Facility MR/PAT.SHANDRAthalia 03-17-2025 MR/PAT.SHANDRA [facility] Medical Records Department [address] [place] [address] PAT - Anesthesia 03/17/25 1551 MR#: [id number] Acct: [id number] Name: TAYLOR ARNDT Rep #: [id number] : 1940 84 From: Nehemiah Hernandez MD [place]CP: [place] [facility] Status[place]PRE [facility] [place] Race: C [place] [facility] [place]-Assessment Diagnosis/Proposed Procedure Planned Operative Procedure(s): RIGHT ENDOSCOPIC CARPAL TUNNEL RELEASE Anesthesia History Anesthesia History - strip machine tender: Anesthesia History - strip machine tender Hx Hospitalization No 03/17/25 12:49 Any Problems With Anesthesia No 03/17/25 12:49 Cholinesterase deficiency No 03/17/25 12:49 You/Your Family Experience No 03/17/25 12:49 fever (hyperthermia) with Relationship Recent Exposure to Contagious No 03/19/22 10:00 Disease Does patient have nerve No 03/17/25 12:49 stimulator Patient instructed to have device shut off --Does patient have Pacemaker or ICD? When Was Last Pacemaker Check QUESTION #4 FULL TEXT: You/Your Family Experience fever (hyperthermia) with Anesthesia Last Oral Intake Last Oral intake: Last Oral Intake NPO since Meds taken in AM with sips of water? Meds patient instructed to take am of surgery PONV PONV - strip machine tender: PONV - strip machine tender Female No 03/17/25 12:49 HX of Motion Sickness No 03/17/25 12:49 HX of N/V After Surgery No 03/17/25 12:49 Non-Smoker Yes 03/17/25 12:49 Duration of Surgery greater No 03/17/25 12:49 than 60 minutes Number of Risk Factors 1 03/17/25 12:49 PONV Score Low Risk 03/17/25 12:49 Height Weight Height Weight: Anesthesia: Height Weight Height 5 ft 4 in 03/02/25 09:06 Respiratory Assessment Respiratory Assessment - strip machine tender: Respiratory Tract Infection Hx - strip machine tender Hx Respiratory Tract Infection No 03/17/25 12:49 STOP Sleep Apnea STOP Sleep Apnea - strip machine tender: STOP Sleep Apnea - strip machine tender Hx Hypertension Yes: CONTROLLED WITH MED 03/17/25 12:49 Hx Sleep Apnea No 03/17/25 12:49 CPAP No 03/19/22 13:07 BIPAP Do you snore loudly (louder No 03/17/25 12:49 than talking or can be heard Do you often feel tired/ No 03/17/25 12:49 fatigued/ sleepy during daytime? Has anyone observed you stop No 03/17/25 12:49 breathing during sleep? STOP Results Negative 03/17/25 12:49 QUESTION #5 FULL TEXT : Do you snore loudly (louder than talking or can be heard through closed doors)? 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 Specify any problems Hx of Preganancy in last 3 N/A 03/17/25 12:49 Months Nurse Filling Out Transfusion DSCHRIBER 03/17/25 12:49 Questions: Date: 03/17/25 03/17/25 12:49 Time: 12:50 03/17/25 12:49 Patient unable to answer at this time (ie. confused, unrespo /Reproduction History /Reproductive History - strip machine tender: /Reproductive Hx- strip machine tender Hx Now No 03/17/25 12:49 Gestational Age (in weeks): EDC: Hx Hx Para Hx Section SAB No 03/17/25 12:49 [facility] Medical History (Updated 03/17/25 @ 12:56 by Imani Quispe) Uses wheelchair Easy bruising Dietary restriction Shortness of breath on exertion History of echocardiogram Bilateral carpal tunnel syndrome Right carpal tunnel syndrome Atherosclerotic heart disease of [place] coronary artery without angina pectoris Old myocardial infarction Pure hypercholesterolemia History of left heart catheterization ([facility]) ( 2000) Essential hypertension Legally blind Arthritis Gout High cholesterol Injury of head and neck Non-smoker History of stress test Cardiology follow-up encounter Hypertension Heart attack Hypertension Home Medications ???Medication ???Instructions ???Recorded ???Last Taken ???Type aspirin 81 mg tablet,delayed 81 mg PO DAILY 01/31/22 12/10/22 H istory release (Adult Aspirin Regimen) atorvastatin 20 mg tablet 20 mg PO QHS 01/31/22 Unknown Hist ory lisinopril 10 mg tablet 10 m (more content not included)... Normal [facility] Orthopedic Visit Reporton Orthopedic Visit Report [facility] [address] [place] [address] OFFICE VISIT Date of Service: 03/02/25 MR#: [id number] Acct: [id number] Name: TAYLOR ARNDT Rep #: [id number] : 1940 Provider: Dr. Frankie vásquez MD Age/Sex: 84/M Location: [facility] Status: Signed with Addenda ADDENDUM by Dr. Frankie Cr MD on 03/02/25 at 0920 Assessment and Plan Assessment and Plan (1) Bilateral carpal tunnel syndrome: Status: Acute Plan: Change left to RIGHT 03/02/25 0920 Date Frankie Cr MD cc: * Signed Intake Vital Signs 02/02/25 09:40 03/02/25 09:06 Height 5 ft 4 in 5 ft 4 in Weight: 214 lb 8 oz 215 lb BMI 36.8 36.8 Intake Visit Reasons: RIGHT HAND Chief Complaint: Right hand EMG review Accompanied by: Is patient in pain?: No Allergies No Known Allergies Allergy (Unverified 03/02/25 09:08) Medications ???Medication ???Instructions ???Recorded ???Confirmed ???Type aspirin 81 mg tablet,delayed 81 mg PO DAILY 01/31/22 03/02/25 H istory release (Adult Aspirin Regimen) atorvastatin 20 mg tablet 20 mg PO DAILY 01/31/22 03/02/25 H istory lisinopril 10 mg tablet 10 mg PO DAILY 01/31/22 03/02/25 H istory allopurinol 100 mg tablet 100 mg PO DAILY PRN 01/06/2403/02 History probenecid 500 mg-colchicine 0.5 1 tab PO BID PRN 01/06/24 03/02/25 History mg tablet vitamins A,C,J-dlau-cnbdel 4,296 1 cap PO DAILY 01/06/24 03/02/25 H istory mcg-226 mg-90 mg capsule (PreserVision AREDS) Have you fallen in the past year?: Yes PFSH Medical History Bilateral carpal tunnel syndrome Right carpal tunnel syndrome Atherosclerotic heart disease of [place] coronary artery without angina pectoris Old myocardial infarction Pure hypercholesterolemia History of left heart catheterization ([facility]) ( 2000) Essential hypertension Legally blind Arthritis [...] made by me, Dr. Frankie Cr MD 03/02/25 0809. Part of today???s visit was documented by [ ], acting as scribe. TAYLOR ARNDT is a 84 year old M here today for FU bilat NCS for CTS. Supplemental Info [facility] Pulmonary Services/Neurology [address] [place] [address] MR#: [id number] Acct: [id number] Name: TAYLOR ARNDT Rep #: [id number] : 1940 84 From: Alireza Ellison MD Referring Dr: Frankie Cr MD Status: REG CLI Location: [facility] Date: 02/24/25 Sex: M C NCS and/or EMG Patient Report Ordering Doctor: Frankie Cr DATE OF SERVICE: 02/24/25 Taylor presents with complaints of numbness and tingling in both hands. Electrodiagnostic findings: Right median motor nerve demonstrates significantly prolonged distal latency with reduced amplitude. Left median motor nerve demonstrates prolonged distal latency with reduced amplitude and reduced conduction velocity. Right median and right ulnar F waves within normal limits. Borderline prolonged left median F???wave. Ulnar motor response within normal limits bilaterally. Absent right median sensory latency at the wrist. Prolonged left median sensory response. Absent right median palmar response. Needle EMG testing was tested in the upper limbs. All muscles tested showed no evidence of denervation with normal motor unit action potentials. Electrodiagnostic impression: This is an abnormal study of the upper limbs. 1. Electrodiagnostic findings suggestive of bilateral median mononeuropathy. This is consistent with a severe right carpal tunnel syndrome and a moderate to severe left carpal tunnel syndrome. Coding Level of Care Code Off vis,est,level 4 Diagnoses Bilateral carpal tunnel syndrome G56.03 Assessment and Plan Assessment and Plan (1) Bilateral carpal tunnel syndrome: Status: Acute Plan: 84 M with bilateral CTS. Electrodiagnostic find (more content not included)... Normal [facility] NCS and/or EMG Patienton NCS and/or EMG Patient [facility] Pulmonary Services/Neurology [address] [place] [address] MR#: [id number] Acct: [id number] Name: TAYLOR ARNDT Rep #: [id number] : 1940 84 From: Alireza Ellison MD Referring Dr: Frankie Cr MD Status: REG CLI Location: [facility] Date: 02/24/25 Sex: M C NCS and/or EMG Patient Report Ordering Doctor: Frankie Cr DATE OF SERVICE: 02/24/25 Taylor presents with complaints of numbness and tingling in both hands. Electrodiagnostic findings: Right median motor nerve demonstrates significantly prolonged distal latency with reduced amplitude. Left median motor nerve demonstrates prolonged distal latency with reduced amplitude and reduced conduction velocity. Right median and right ulnar F waves within normal limits. Borderline prolonged left median F???wave. Ulnar motor response within normal limits bilaterally. Absent right median sensory latency at the wrist. Prolonged left median sensory response. Absent right median palmar response. Needle EMG testing was tested in the upper limbs. All muscles tested showed no evidence of denervation with normal motor unit action potentials. Electrodiagnostic impression: This is an abnormal study of the upper limbs. 1. Electrodiagnostic findings suggestive of bilateral median mononeuropathy. This is consistent with a severe right carpal tunnel syndrome and a moderate to severe left carpal tunnel syndrome. Multi Select Codes Neurology Neurology Interp Codes: 08647-00 Musc test done w/n test comp (interp) (2) and 05137-79 Nrv cndj test 9-10 studies (interp) 02/24/25 0847 Date Alireza Ellison MD CC: Dr. Alireza Ellison MD; Dr. Frankie Cr MD; [facility] Date Dictated: 02/24/25839 Date Transcribed: 02/24/25839 [employer]lies Sales: AA Signed Normal [facility] Orthopedic Visit Reporton Orthopedic Visit Report [facility] [address] [place] [address] OFFICE VISIT Date of Service: 02/02/25 MR#: [id number] Acct: [id number] Name: TAYLOR ARNDT Rep #: [id number] : 1940 Provider: Dr. Frankie vásquez MD Age/Sex: 84/M Location: [facility] Status: Signed Intake Vital Signs 10/01/24 15:17 [...] PRN 01/06/24 02/02/25 History mg tablet vitamins A,C,C-cutl-gkeqbq 4,296 1 cap PO DAILY 01/06/24 02/02/25 H istory mcg-226 mg-90 mg capsule (PreserVision AREDS) Have you fallen in the past year?: No PFSH Medical History Right carpal tunnel syndrome Atherosclerotic heart disease of [place] coronary artery without angina pectoris Old myocardial infarction Pure hypercholesterolemia History of left heart catheterization ([facility]) ( 2000) Essential hypertension Legally blind Arthritis [...] by me, Dr. Frankie Cr MD 02/02/25 2755. Part of today???s visit was documented by [...] out. 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 Normal [facility] Absolute neutrophil countOrd ered By: Parminder Chris on 10-01-2024 Neutrophils (Bld) [#/Vol] 8.0 10*3/uL High 2.0-7.7 [facility] Anion gap in Serum or Plasma Ordered By: Mcconnell Chris on 10-01-2024 Anion gap [Moles/Vol] 15 mmol/L 11-19 [facility] BUN/creatinine ratioOrdered By: Parminder Chris on 10-01-2024 Urea nitrogen/Creatinine [Mass ratio] 13.0 mg/mg - [facility] Basic Metabolic Profile (BMP )on 10-01-2024 BUN/CRE 13.0 RATIO Normal 04-26 [facility] Comment on above: Performed By: #### L 100.0100, L500.2500 #### [facility] [address] [place], [address] Calcium [Mass/Vol] 9.3 mg/dL Normal 7.6-11.0 [facility] Comment on above: Performed By: #### L 100.0100, L500.2500 #### [facility] [address] [place], [address] Chloride [Moles/Vol] 106 mmol/L Normal 98-108 [facility] Comment on above: Performed By: #### L 100.0100, L500.2500 #### [facility] [address] [place], [address] CO2 [Moles/Vol] 22.5 mmol/L Normal 21.0-32.0 [facility] Comment on above: Performed By: #### L 100.0100, L500.2500 #### [facility] [address] [place], [address] Creatinine [Mass/Vol] 1.25 mg/dL High 0.70-1.20 [facility] Comment on above: Performed By: #### L 100.0100, L500.2500 #### [facility] [address] [place], [address] GAP 15 Normal 5-15 [facility] Comment on above: Performed By: #### L 100.0100, L500.2500 #### [facility] [address] [place], [address] GFR/1.73 sq M.predicted among non-blacks MDRD (S/P/Bld) [Vol rate/Area] 57 mL/min/{1.73_m2} Low >60 [facility] Comment on above: Result Comment: mL/m in/1.73m2 CKD-EPI Creatinine Equation (2020) Performed By: #### L 100.0100, L500.2500 #### [facility] [address] [place], [address] Glucose [Mass/Vol] 98 mg/dL Normal 70-99 [facility] Comment on above: Performed By: #### L 100.0100, L500.2500 #### [facility] [address] [place], [address] Potassium [Moles/Vol] 3.6 mmol/L Normal 3.3-5.1 [facility] Comment on above: Result Comment: Hemo lysis present, Results??could be affected. ?? Performed By: #### L 100.0100, L500.2500 #### [facility] [address] [place], [address] Sodium [Moles/Vol] 143 mmol/L Normal 133-145 [facility] Comment on above: Performed By: #### L 100.0100, L500.2500 #### [facility] [address] [place], [address] Urea nitrogen [Mass/Vol] 16 mg/dL Normal 4-19 [facility] Comment on above: Performed By: #### L 100.0100, L500.2500 #### [facility] [address] [place], [address] Basophil percentageOrdered B y: Parminder Watersori on 10-01-2024 Basophils/100 WBC (Bld) 0.5 % 0-1 [facility] CBC W/Diff, Automatedon 09-06 Absolute Lymph 2.07 X10 3/uL Normal 0.83-4.51 [facility] Comment on above: Performed By: #### L 100.0100, L500.2500 #### [facility] [address] [place], [address] Absolute Neut 8.0 X10 3/uL High 2.0-7.7 [facility] Comment on above: Performed By: #### L 100.0100, L500.2500 #### [facility] [address] [place], [address] Basophils/100 WBC (Bld) 0.5 % Normal 0-1 [facility] Comment on above: Performed By: #### L 100.0100, L500.2500 #### [facility] [address] [place], [address] Eosinophils/100 WBC (Bld) 1.4 % Normal 0-5 [facility] Comment on above: Performed By: #### L 100.0100, L500.2500 #### [facility] [address] [place], [address] Erythrocyte distribution width (RBC) [Ratio] 13.4 % Normal 11.6-14.6 [facility] Comment on above: Performed By: #### L 100.0100, L500.2500 #### [facility] [address] [place], [address] Hematocrit (Bld) [Volume fraction] 47.1 % Normal 40-54 [facility] Comment on above: Performed By: #### L 100.0100, L500.2500 #### [facility] [address] [place], [address] Hemoglobin (Bld) [Mass/Vol] 16.7 g/dL High 13.0-16.5 [facility] Comment on above: Performed By: #### L 100.0100, L500.2500 #### [facility] [address] [place], [address] IG% 0.800 Normal 0.0-0.9 [facility] Comment on above: Result Comment: IG% - Immature Granulocytes (promyelocytes, myelocytes and metamyelocytes) > 1% indicates that a LEFT SHIFT is Present. Performed By: #### L 100.0100, L500.2500 #### [facility] [address] [place], [address] Lymphocytes/100 WBC (Bld) 18.1 % Low 19-41 [facility] Comment on above: Performed By: #### L 100.0100, L500.2500 #### [facility] [address] [place], [address] MCH (RBC) [Entitic mass] 33.4 pg High 27.0-32.0 [facility] Comment on above: Performed By: #### L 100.0100, L500.2500 #### [facility] [address] [place], [address] MCHC (RBC) [Mass/Vol] 35.5 g/dL Normal 32-36 [facility] Comment on above: Performed By: #### L 100.0100, L500.2500 #### [facility] [address] [place], [address] MCV (RBC) [Entitic vol] 94.2 fL High 80-94 [facility] Comment on above: Performed By: #### L 100.0100, L500.2500 #### [facility] [address] [place], [address] Monocytes/100 WBC (Bld) 9.3 % Normal 0-10 [facility] Comment on above: Performed By: #### L 100.0100, L500.2500 #### [facility] [address] [place], [address] Neutrophils/100 WBC (Bld) 69.9 % Normal 47-70 [facility] Comment on above: Performed By: #### L 100.0100, L500.2500 #### [facility] [address] [place], [address] Nucleated RBC (Bld) [#/Vol] 0 10*3/uL Normal 0-5 [facility] Comment on above: Performed By: #### L 100.0100, L500.2500 #### [facility] [address] [place], [address] Platelet mean volume (Bld) [Entitic vol] 10.2 fL Normal 6.2-12.0 [facility] Comment on above: Performed By: #### L 100.0100, L500.2500 #### [facility] [address] [place], [address] Platelets (Bld) [#/Vol] 243 10*3/uL Normal 150-450 [facility] Comment on above: Performed By: #### L 100.0100, L500.2500 #### [facility] [address] [place], [address] RBC (Bld) [#/Vol] 5.00 10*6/uL Normal 4.6-6.2 [facility] Comment on above: Performed By: #### L 100.0100, L500.2500 #### [facility] [address] [place], [address] RDW SD 46.6 fl High 35.1-43.9 [facility] Comment on above: Performed By: #### L 100.0100, L500.2500 #### [facility] [address] [place], [address] WBC (Bld) [#/Vol] 11.4 10*3/uL High 4.4-11.0 [facility] Comment on above: Performed By: #### L 100.0100, L500.2500 #### [facility] [address] [place], [address] Carbon dioxide, total [Moles /volume] in Central venous bloodOrdered By: Parminder Perez on 10-01-2024 CO2 [Moles/Vol] 22.5 mmol/L 21.0-32.0 [facility] Cardiology Visit Reporton Cardiology Visit Report [facility] [address] [place] [address] OFFICE VISIT Date of Service: 10/01/24 MR#: [id number] Acct: [id number] Name: TAYLOR ARNDT Rep #: [id number] : 1940 Provider: Dr. Parminder Perez MD Age/Sex: 84/M Location: [facility] Status: Signed HPI HPI History of Present Illness Details: This is an 84-year-old white male who presents to the office today for a cardiovascular follow-up visit. He has a past cardiovascular history which includes underlying CAD, and SC, PCI (details unknown), hyperlipidemia, hypertension, and macular degeneration. He was previously seen through [facility]. He had a transthoracic echocardiogram performed on 02-02-2016 through his hospital system through the [facility]. He went a cardiac catheterization on 12/10/2022 following an abnormal stress test. His cardiac catheterization results demonstrated patent stent in the LAD with mild disease noted in this vessel, left circumflex artery, and ramus intermedius.??? 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 Medical therapy was recommended. 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 Normal [facility] Chloride assayOrdered By: Luis Fernando Perez on 10-01-2024 Chloride [Moles/Vol] 106 mmol/L 98-108 [facility] Eosinophil percentageOrdered By: Parminder Perez on 10-01-2024 Eosinophils/100 WBC (Bld) 1.4 % 0-5 [facility] Erythrocyte distribution wid th ratioOrdered By: Parminder Perez on 10-01-2024 Erythrocyte distribution width (RBC) [Ratio] 13.4 % 11.6-14.6 [facility] Erythrocyte distribution wid th standard deviationOrdered By: Parminder Perez on 10-01-2024 Erythrocyte distribution width (RBC) [Entitic vol] 46.6 fL High 35.1-43.9 [facility] GFR/1.73 sq M.predicted jesus g non-blacks MDRD (S/P/Bld) [Vol rate/Area]Ordered By: Parminder Perez on 10-01-2024 Estimated GFR (MDRD) Non-Af Amer 57 Low >60 [facility] Comment on above: mL/min/1.73m2 CKD-EP I Creatinine Equation (2020) Hematocrit Auto (Bld) [Volum e fraction]Ordered By: Parminder Perez on 10-01-2024 Hematocrit (Bld) [Volume fraction] 47.1 % 40-54 [facility] Hemoglobin measurementOrdere d By: Parminder Perez on 10-01-2024 Hemoglobin (Bld) [Mass/Vol] 16.7 g/dL High 13.0-16.5 [facility] Immature granulocytes/100 WB C Auto (Bld)Ordered By: Parminder Chris on 10-01-2024 Immature granulocytes/100 WBC (Bld) 0.800 % 0.0-0.9 [facility] Comment on above: IG% - Immature Granu locytes (promyelocytes, myelocytes and metamyelocytes) > 1% indicates that a LEFT SHIFT is Present. Lymphocytes Auto (Unsp spec) [#/Vol]Ordered By: Parminder Chris on 10-01-2024 Lymphocytes (Bld) [#/Vol] 2.07 10*3/uL 0.83-4.51 [facility] Lymphocytes/100 WBC Auto (Un sp spec)Ordered By: Parminder Perez on 10-01-2024 Lymphocytes/100 WBC (Bld) 18.1 % Low 19-41 [facility] MCV (mean corpuscular volume ) determinationOrdered By: Parminder Perez on 10-01-2024 MCV (RBC) [Entitic vol] 94.2 fL High 80-94 [facility] Mean corpuscular hemoglobin (MCH) determinationOrdered By: Parminder Perez on 10-01-2024 MCH (RBC) [Entitic mass] 33.4 pg High 27.0-32.0 [facility] Mean corpuscular hemoglobin concentration (MCHC) determinationOrdered By: Parminder Perez on 10-01-2024 MCHC (RBC) [Mass/Vol] 35.5 g/dL 32-36 [facility] Mean platelet volume determi nationOrdered By: Mcconnell Chris on 10-01-2024 Platelet mean volume (Bld) [Entitic vol] 10.2 fL 6.2-12.0 [facility] Monocyte percentageOrdered B y: Parminder Chris on 10-01-2024 Monocytes/100 WBC (Bld) 9.3 % 0-10 [facility] Neutrophil percentageOrdered By: Mcconnell Chris on 10-01-2024 Neutrophils/100 WBC (Bld) 69.9 % 47-70 [facility] Nucleated red blood cell per centageOrdered By: Parminder Chris on 10-01-2024 Nucleated RBC/100 WBC (Bld) [Ratio] 0 % 0-5 [facility] Platelet countOrdered By: Cy ril Chris on 10-01-2024 Platelets (Bld) [#/Vol] 243 10*3/uL 150-450 [facility] Potassium (Unsp spec) [Mass/ Vol]Ordered By: Parminder Perez on 10-01-2024 Potassium [Moles/Vol] 3.6 mmol/L 3.3-5.1 [facility] Comment on above: Hemolysis present, R esults could be affected. RBC Auto (Bld) [#/Vol]Ordere d By: Parminder Chris on 10-01-2024 RBC (Bld) [#/Vol] 5.00 10*6/uL 4.6-6.2 [facility] Serum creatinine measurement (mass/volume)Ordered By: Parminder Perez on 10-01-2024 Creatinine [Mass/Vol] 1.25 mg/dL High 0.70-1.20 [facility] Serum glucose measurement (m ass/volume)Ordered By: Parmindermj Perez on 10-01-2024 Glucose [Mass/Vol] 98 mg/dL 70-99 [facility] Serum or plasma calcium marguerite urement (mass/volume)Ordered By: Mcconnell Chris on 10-01-2024 Calcium [Mass/Vol] 9.3 mg/dL 7.6-11.0 [facility] Serum or plasma urea nitroge n measurement (mass/volume)Ordered By: Parminderkatiana Perez on 10-01-2024 Urea nitrogen [Mass/Vol] 16 mg/dL 4-19 [facility] Sodium levelOrdered By: Dontae Perez on 10-01-2024 Sodium [Moles/Vol] 143 mmol/L 133-145 [facility] White blood cell (WBC) count Ordered By: Parminder Perez on 10-01-2024 WBC (Bld) [#/Vol] 11.4 10*3/uL High 4.4-11.0 [facility] Laboratory - Hematology and Cell countson 04-30-2024 HbA1c (Bld) [Mass fraction] 6 % [facility] No Panel Informationon 04-30 [facility] Comprehensive Metabolic Pane lam 02-08-2024 Albumin [Mass/Vol] 3.9 g/dL Normal 3.5-4.6 [facility] Comment on above: Order Comment: CALL doctor [id number] tel. , FAX [phone] Performed By: #### C MP #### [facility] [address] [place] [address] ALP [Catalytic activity/Vol] 78 U/L Normal 35-104 [facility] Comment on above: Order Comment: CALL doctor [id number] tel. , FAX [phone] Performed By: #### C MP #### [facility] [address] [place] [address] ALT [Catalytic activity/Vol] 18 U/L Normal 0-41 [facility] Comment on above: Order Comment: CALL doctor [id number] tel. , FAX [phone] Performed By: #### C MP #### [facility] [address] [place] [address] Anion gap [Moles/Vol] 13 mmol/L Normal 9-15 [facility] Comment on above: Order Comment: CALL doctor [id number] tel. , FAX [phone] Performed By: #### C MP #### [facility] [address] [place] [address] AST [Catalytic activity/Vol] 20 U/L Normal 0-40 [facility] Comment on above: Order Comment: CALL doctor [id number] tel. , FAX [phone] Performed By: #### C MP #### [facility] [address] [place] [address] Bilirubin [Mass/Vol] 0.6 mg/dL Normal 0.2-0.7 [facility] Comment on above: Order Comment: CALL doctor [id number] tel. , FAX [phone] Performed By: #### C MP #### [facility] [address] [place] [address] Calcium [Mass/Vol] 9.1 mg/dL Normal 8.5-9.9 [facility] Comment on above: Order Comment: CALL doctor [id number] tel. , FAX [phone] Performed By: #### C MP #### [facility] [address] [place] [address] Chloride [Moles/Vol] 104 mmol/L Normal 95-107 [facility] Comment on above: Order Comment: CALL doctor [id number] tel. , FAX [phone] Performed By: #### C MP #### [facility] [address] [place] [address] CO2 [Moles/Vol] 24 mmol/L Normal 20-31 [facility] Comment on above: Order Comment: CALL doctor [id number] tel. , FAX [phone] Performed By: #### C MP #### [facility] [address] [place] [address] Creatinine [Mass/Vol] 0.98 mg/dL Normal 0.70-1.20 [facility] Comment on above: Order Comment: CALL doctor [id number] tel. , FAX [phone] Performed By: #### C MP #### [facility] [address] [place] [address] GFR 76.1 Normal >60 [facility] Comment on above: Order Comment: CALL doctor [id number] tel. , FAX [phone] Result Comment: Starr atric calculator link https://www.kidney.org/professionals/kdoqi/gfr_calculatorped [...] secretion. Performed By: #### C MP #### [facility] [address] [place] [address] Globulin (S) [Mass/Vol] 2.8 g/dL Normal 2.3-3.[address] [facility] Comment on above: Order Comment: CALL doctor [id number] tel. , FAX [phone] Performed By: #### C MP #### [facility] [address] [place] [address] Glucose [Mass/Vol] 110 mg/dL Critically high 70-[address] [facility] Comment on above: Order Comment: CALL doctor [id number] tel. , FAX [phone] Performed By: #### C MP #### [facility] [address] [place] [address] Potassium [Moles/Vol] 4.1 mmol/L Normal 3.4-4.9 [facility] Comment on above: Order Comment: CALL doctor [id number] tel. , FAX [phone] Performed By: #### C MP #### [facility] [address] [place] [address] Protein [Mass/Vol] 6.7 g/dL Normal 6.3-8.0 [facility] Comment on above: Order Comment: CALL doctor [id number] tel. , FAX [phone] Performed By: #### C MP #### [facility] [address] [place] [address] Sodium [Moles/Vol] 141 mmol/L Normal 135-144 [facility] Comment on above: Order Comment: CALL doctor [id number] tel. , FAX [phone] Performed By: #### C MP #### [facility] [address] [place] [address] Urea nitrogen [Mass/Vol] 15 mg/dL Normal 8-23 [facility] Comment on above: Order Comment: CALL doctor LBRocky tel. , FAX [phone] Performed By: #### C MP #### [facility] [address] [place] [address] Comprehensive metabolic 2000 panelon 02-08-2024 Albumin [Mass/Vol] 3.9 g/dL 3.5 - 4.6 g/dL [facility] ALP [Catalytic activity/Vol] 78 U/L 35 - 104 U/L [facility] ALT [Catalytic activity/Vol] 18 U/L 0 - 41 U/L [facility] Anion gap [Moles/Vol] 13 mmol/L [facility] AST [Catalytic activity/Vol] 20 U/L 0 - 40 U/L [facility] Bilirubin [Mass/Vol] 0.6 mg/dL 0.2 - 0 .7 mg/dL [facility] Calcium [Mass/Vol] 9.1 mg/dL 8.5 - 9.9 mg/dL [facility] Chloride [Moles/Vol] 104 mmol/L [facility] CO2 [Moles/Vol] 24 mmol/L [facility] Creatinine [Mass/Vol] 0.98 mg/dL 0.70 - 1.20 mg/dL [facility] GFR/1.73 sq M.predicted among non-blacks MDRD (S/P/Bld) [Vol rate/Area] 76.1 mL/min/{1.73_m2} 60 - [facility] Comment on above: Pediatric calculator link https://www.kidney.org/professionals/kdoqi/gfr_calculatorped [...] [Mass/Vol] 2.8 g/dL 2.3 - 3.5 g/dL [facility] Glucose [Mass/Vol] 110 mg/dL High 70 - 99 mg/dL [facility] Potassium [Moles/Vol] 4.1 mmol/L [facility] Protein [Mass/Vol] 6.7 g/dL 6.3 - 8.0 g/dL [facility] Sodium [Moles/Vol] 141 mmol/L [facility] Urea nitrogen [Mass/Vol] 15 mg/dL 8 - 23 mg/dL [facility] Lipid Panelon 02-08-2024 Cholesterol [Mass/Vol] 174 mg/dL Normal 0-199 [facility] Comment on above: Order Comment: CALL doctor [id number] tel. , FAX [phone] Result Comment: ATP III Cholesterol classification is Desirable. Performed By: #### L IPID #### [facility] [address] [place] [id number] ATP III Cholesterol classification is Desirable. Cholesterol in HDL [Mass/Vol] 34 mg/dL Low 40-59 [facility] Comment on above: Order Comment: CALL doctor [id number] tel. , FAX [phone] Result Comment: ATP III HDL Cholestrol Classification is low. Expected Values: Males: >55 = No Risk 35-55 = Moderate Risk <35 = High Risk Females: >65 = No Risk 45-65 = Moderate Risk <45 = High Risk NCEP Guidelines: Third Report November 2000 >59 = negative risk factor for CHD <40 = major risk factor for CHD Performed By: #### L IPID #### [facility] [address] [place] [address] ATP III HDL Cholestr ol Classification is [...] in LDL [Mass/Vol] 67 mg/dL Normal 0-129 [facility] Comment on above: Order Comment: CALL doctor [id number] tel. , FAX [phone] Result Comment: ATP III LDL Classification is Optimal. Performed By: #### L IPID #### [facility] [address] [place] [address] ATP III LDL Classifi cation is Optimal. Triglyceride [Mass/Vol] 363 mg/dL Critically high 0-150 [facility] Comment on above: Order Comment: CALL doctor [id number] tel. , FAX [phone] Result Comment: ATP III Triglycerides Classification is High. Performed By: #### L IPID #### [facility] [address] [place] [address] ATP III Triglyceride s Classification is High. No Panel Informationon 02-07 Interpretation and review of laboratory results Abnormal [facility] CALL doctor [id number] te l. , FAX [phone] [facility] Comprehensive Metabolic Pane lam 05-17-2023 Albumin [Mass/Vol] 3.9 g/dL Normal 3.5-4.6 [facility] Comment on above: Performed By: #### C MP #### [facility] [address] [place] [address] ALP [Catalytic activity/Vol] 94 U/L Normal 35-104 [facility] Comment on above: Performed By: #### C MP #### [facility] [address] [place] [address] ALT [Catalytic activity/Vol] 28 U/L Normal 0-41 [facility] Comment on above: Performed By: #### C MP #### [facility] [address] [place] [address] Anion gap [Moles/Vol] 11 mmol/L Normal 9-15 [facility] Comment on above: Performed By: #### C MP #### [facility] [address] [place] [address] AST [Catalytic activity/Vol] 21 U/L Normal 0-40 [facility] Comment on above: Performed By: #### C MP #### [facility] [address] [place] [address] Bilirubin [Mass/Vol] 0.4 mg/dL Normal 0.2-0.7 [facility] Comment on above: Performed By: #### C MP #### [facility] [address] [place] [address] Calcium [Mass/Vol] 9.0 mg/dL Normal 8.5-9.9 [facility] Comment on above: Performed By: #### C MP #### [facility] [address] [place] [address] Chloride [Moles/Vol] 100 mmol/L Normal 95-107 [facility] Comment on above: Performed By: #### C MP #### [facility] [address] [place] [address] CO2 [Moles/Vol] 27 mmol/L Normal 20-31 [facility] Comment on above: Performed By: #### C MP #### [facility] [address] [place] [address] Creatinine [Mass/Vol] 1.15 mg/dL Normal 0.70-1.20 [facility] Comment on above: Performed By: #### C MP #### [facility] [address] [place] [address] GFR >60.0 Normal >60 [facility] Comment on above: Result Comment: Pedi atric calculator link https://www.kidney.org/professionals/kdoqi/gfr_calculatorped Effective Apr 09, [...] secretion. Performed By: #### C MP #### [facility] [address] [place] [address] Globulin (S) [Mass/Vol] 3.1 g/dL Normal 2.3-3.[address] [facility] Comment on above: Performed By: #### C MP #### [facility] [address] [place] [address] Glucose [Mass/Vol] 98 mg/dL Normal 70-99 [facility] Comment on above: Performed By: #### C MP #### [facility] [address] [place] [address] Potassium [Moles/Vol] 3.9 mmol/L Normal 3.4-4.9 [facility] Comment on above: Performed By: #### C MP #### [facility] [address] [place] [address] Protein [Mass/Vol] 7.0 g/dL Normal 6.3-8.0 [facility] Comment on above: Performed By: #### C MP #### [facility] [address] [place] [address] Sodium [Moles/Vol] 138 mmol/L Normal 135-144 [facility] Comment on above: Performed By: #### C MP #### [facility] [address] [place] [address] Urea nitrogen [Mass/Vol] 21 mg/dL Normal 8-23 [facility] Comment on above: Performed By: #### C MP #### [facility] [address] [place] [address] Lipid Panelon 05-17-2023 Cholesterol [Mass/Vol] 129 mg/dL Normal 0-199 [facility] Comment on above: Result Comment: ATP III Cholesterol classification is Desirable. Performed By: #### L IPID #### [facility] [address] [place] [address] Cholesterol in HDL [Mass/Vol] 37 mg/dL Low 40-59 [facility] Comment on above: Result Comment: ATP [...] CHD Performed By: #### L IPID #### [facility] [address] [facility] [address] Cholesterol in LDL [Mass/Vol] 50 mg/dL Normal 0-129 [facility] Comment on above: Result Comment: ATP III LDL Classification is Optimal. Performed By: #### L IPID #### [facility] [address] [facility] [address] Triglyceride [Mass/Vol] 209 mg/dL Critically high 0-150 [facility] Comment on above: Result Comment: ATP III Triglycerides Classification is High. Performed By: #### L IPID #### [facility] [address] [facility] [address] Absolute lymphocyte countOrd ered By: Kamla Albarado on 11-30-2022 Lymphocytes Auto (Unsp spec) [#/Vol] 1.57 10*3/uL 0.83-4.51 [facility] Basophil percentageOrdered B y: Kamla Albarado on 11-30-2022 Basophils/100 WBC (Bld) 0.4 % 0-1 [facility] Chloride [Moles/Vol] 108 mmol/L 98-107 [facility] Eosinophils/100 WBC (Bld) 1.7 % 0-5 [facility] Glucose [Mass/Vol] 110 mg/dL 74-106 [facility] Comment on above: Fasting Glucose resu lt from 100 to 125 mg/dL suggests IMPAIRED HOMEOSTASIS per A.D.A. criteria. Neutrophils (Bld) [#/Vol] 5.6 10*3/uL 2.0-7.7 [facility] Neutrophils/100 WBC (Bld) 69.2 % 47-70 [facility] Potassium [Moles/Vol] 4.1 mmol/L 3.5-5.1 [facility] Comment on above: Moderate Hemolysis, Result may be falsely increased. Sodium [Moles/Vol] 143 mmol/L 136-145 [facility] WBC (Bld) [#/Vol] 8.1 10*3/uL 4.4-11.0 [facility] Blood erythrocytes count (nu mber/volume)Ordered By: Kamla Albarado on 11-30-2022 RBC (Bld) [#/Vol] 5.27 10*6/uL 4.6-6.2 [facility] Blood hemoglobin measurement (mass/volume)Ordered By: Kamla lAbarado on 11-30-2022 Hemoglobin (Bld) [Mass/Vol] 17.4 g/dL 13.0-16.5 [facility] Blood lymphocytes/100 leukoc ytesOrdered By: Kamla Albarado on 11-30-2022 Lymphocytes/100 WBC (Bld) 19.3 % 19-41 [facility] Blood monocytes/100 leukocyt esOrdered By: Kamla Albarado on 11-30-2022 Monocytes/100 WBC (Bld) 9.0 % 0-10 [facility] Blood platelet mean volumeOr dered By: Kamla Albarado on 11-30-2022 Platelet mean volume (Bld) [Entitic vol] 10.2 fL 6.2-12.0 [facility] Determination of erythrocyte mean corpuscular volume (MCV)Ordered By: Kamla Albarado on 11-30-2022 MCV (RBC) [Entitic vol] 97.2 fL 80-94 [facility] Hematocrit Auto (Bld) [Volum e fraction]Ordered By: Kamla Albarado on 11-30-2022 Hematocrit (Bld) [Volume fraction] 51.2 % 40-54 [facility] Laboratory - Chemistry and C hemistry - challengeOrdered By: Kamla Albarado on 11-30-2022 CO2 [Moles/Vol] 26.0 mmol/L 21.0-32.0 [facility] Urea nitrogen/Creatinine [Mass ratio] 12.0 mg/mg 10-20 [facility] Laboratory - Hematology and Cell countsOrdered By: Kamla Albarado on 11-30-2022 Erythrocyte distribution width (RBC) [Entitic vol] 48.7 fL 35.1-43.9 [facility] Erythrocyte distribution width (RBC) [Ratio] 13.5 % 11.6-14.6 [facility] Immature granulocytes/100 WBC (Bld) 0.400 % 0.0-0.9 [facility] Comment on above: IG% - Immature Granu locytes (promyelocytes, myelocytes and metamyelocytes) > 1% indicates that a LEFT SHIFT is Present. MCH (RBC) [Entitic mass] 33.0 pg 27.0-32.0 [facility] Nucleated RBC/100 WBC (Bld) [Ratio] 0 % 0-5 [facility] MCHC Auto (RBC) [Mass/Vol]Or dered By: Kamla Albarado on 11-30-2022 MCHC (RBC) [Mass/Vol] 34.0 g/dL 32-36 [facility] No Panel InformationOrdered By: Kamla Albarado on 11-30-2022 Estimated GFR (MDRD) Amer 66 mL/min >60 [facility] Comment on above: GFR Calc Estimated GFR (MDRD) Non-Af Amer 55 mL/min >60 [facility] Comment on above: Non- GFR Calc Platelets bldOrdered By: Davin Albarado on 11-30-2022 Platelets (Bld) [#/Vol] 217 10*3/uL 150-450 [facility] Serum or plasma calcium marguerite urement (mass/volume)Ordered By: Kamla Albarado on 11-30-2022 Calcium [Mass/Vol] 9.4 mg/dL 8.5-10.1 [facility] Serum or plasma creatinine m easurement (mass/volume)Ordered By: Kamla Albarado on 11-30-2022 Creatinine [Mass/Vol] 1.33 mg/dL 0.70-1.30 [facility] Comment on above: The validity of the calculated GFR & GFRAA in patients over 70 years has not been determined. Clinical correlation is essential. Serum or plasma urea nitroge n measurement (mass/volume)Ordered By: Kamla Albarado on 11-30-2022 Urea nitrogen [Mass/Vol] 16 mg/dL 7-18 [facility] Thin prep Papanicolaou smear with manual screeningOrdered By: Kamla Alabrado on 11-30-2022 Thin prep Papanicolaou smear with manual screening 9 5-15 [facility] Basophil percentageon 2021 Chloride [Moles/Vol] 109 mmol/L 98-107 [facility] Work Phone: Glucose [Mass/Vol] 113 mg/dL 74-106 [facility] Work Phone: Comment on above: Fasting Glucose resu lt from 100 to 125 mg/dL suggests IMPAIRED HOMEOSTASIS per A.D.A. criteria. Potassium [Moles/Vol] 3.5 mmol/L 3.5-5.1 [facility] Work Phone: Comment on above: Slight Hemolysis, Re sult may be falsely increased. Sodium [Moles/Vol] 144 mmol/L 136-145 [facility] Work Phone: [phone] WBC (Bld) [#/Vol] 7.3 10*3/uL 4.4-11.0 [facility] Work Phone: [phone] Blood erythrocytes count (nu mber/volume)on 03-09-2022 RBC (Bld) [#/Vol] 4.79 10*6/uL 4.6-6.2 [facility] Work Phone: [phone] Blood hemoglobin measurement (mass/volume)on 03-09-2022 Hemoglobin (Bld) [Mass/Vol] 15.8 g/dL 13.0-16.5 [facility] Work Phone: [phone] Blood platelet mean volumeon 03-09-2022 Platelet mean volume (Bld) [Entitic vol] 10.9 fL 6.2-12.0 [facility] Work Phone: [phone] Determination of erythrocyte mean corpuscular volume (MCV)on 03-09-2022 MCV (RBC) [Entitic vol] 97.5 fL 80-94 [facility] Work Phone: [phone] Hematocrit Auto (Bld) [Volum e fraction]on 03-09-2022 Hematocrit (Bld) [Volume fraction] 46.7 % 40-54 [facility] Work Phone: [phone] Laboratory - Chemistry and C hemistry - challengeon 03-09-2022 CO2 [Moles/Vol] 28.0 mmol/L 21.0-32.0 [facility] Work Phone: [phone] Urea nitrogen/Creatinine [Mass ratio] 15.4 mg/mg 10-20 [facility] Work Phone: Laboratory - Hematology and Cell countson 03-09-2022 Erythrocyte distribution width (RBC) [Entitic vol] 48.6 fL 35.1-43.9 [facility] Work Phone: Erythrocyte distribution width (RBC) [Ratio] 13.6 % 11.6-14.6 [facility] Work Phone: [phone] MCH (RBC) [Entitic mass] 33.0 pg 27.0-32.0 [facility] Work Phone: [phone] MCHC Auto (RBC) [Mass/Vol]on 03-09-2022 MCHC (RBC) [Mass/Vol] 33.8 g/dL 32-36 [facility] Work Phone: No Panel Informationon 03-09 Estimated GFR (MDRD) Amer 68 mL/min >60 [facility] Work Phone: Comment on above: GFR Calc Estimated GFR (MDRD) Non-Af Amer 56 mL/min >60 [facility] Work Phone: Comment on above: Non- GFR Calc Platelets bldon 03-09-2022 Platelets (Bld) [#/Vol] 188 10*3/uL 150-450 [facility] Work Phone: Serum or plasma calcium marguerite urement (mass/volume)on 03-09-2022 Calcium [Mass/Vol] 9.1 mg/dL 8.5-10.1 [facility] Work Phone: [phone] Serum or plasma creatinine m easurement (mass/volume)on 03-09-2022 Creatinine [Mass/Vol] 1.30 mg/dL 0.70-1.30 [facility] Work Phone: Comment on above: The validity of the calculated GFR & GFRAA in patients over 70 years has not been determined. Clinical correlation is essential. Serum or plasma urea nitroge n measurement (mass/volume)on 03-09-2022 Urea nitrogen [Mass/Vol] 20 mg/dL 7-18 [facility] Work Phone: Thin prep Papanicolaou smear with manual screeningon 03-09-2022 Thin prep Papanicolaou smear with manual screening 7 5-15 [facility] Work Phone: CNPNon 02-07-2022 CNPN Telephone (OPHTOB) HAIRTAYLOR Watkins ([id number]) 1940 M Date Time Provider Department 02/07/22 KRYSTA LOVETT OPHANGEL During your visit today, we recorded the following information about you: John Blum Pss 02/07/2022 4:58 PM Signed Spoke with [...] Swelling Date Reviewed: 02/07/2022 Reviewed by: Krysta Lovett, OD - Fully Assessed Reason for Visit: [...] Status:Closed by JOHN ROMO on 02/07/22 Normal [facility] Metabolic Pane lam 10-06-2021 Albumin [Mass/Vol] 4.1 g/dL 3.5 - 4.6 g/dL [facility] ALP (Bld) [Catalytic activity/Vol] 81 U/L 35 - 104 U/L [facility] ALT [Catalytic activity/Vol] 23 U/L 0 - 41 U/L [facility] Anion gap [Moles/Vol] 16 mmol/L [facility] AST [Catalytic activity/Vol] 18 U/L 0 - 40 U/L [facility] Bilirubin [Mass/Vol] 0.3 mg/dL 0.2 - 0 .7 mg/dL [facility] Calcium [Mass/Vol] 9.5 mg/dL 8.5 - 9.9 mg/dL [facility] Chloride [Moles/Vol] 102 mmol/L [facility] CO2 [Moles/Vol] [facility] Creatinine [Mass/Vol] 1.09 mg/dL 0.70 - 1.20 mg/dL [facility] Free PSA/Total PSA [Mass fraction] 7.1 g/dL 6.3 - 8.0 g/dL [facility] GFR >60.0 >60 [facility] Comment on above: >60 mL/min/1.73m2 EG FR, calc. for ages 18 and older using the MDRD formula (not corrected for weight), is valid for stable renal function. GFR Non- >60.0 >60 [facility] Comment on above: >60 mL/min/1.73m2 EG FR, calc. for ages 18 and older using the MDRD formula (not corrected for weight), is valid for stable renal function. Globulin (S) [Mass/Vol] 3 g/dL 2.3 - 3.5 g/dL [facility] Glucose [Mass/Vol] 100 mg/dL High 70 - 99 mg/dL [facility] Potassium [Moles/Vol] 3.7 mmol/L [facility] Sodium [Moles/Vol] 141 mmol/L [facility] Urea nitrogen (BldV) [Mass/Vol] 22 mg/dL 8 - 23 mg/dL [facility] Lipid Panelon 10-06-2021 Cholesterol [Mass/Vol] 151 mg/dL 0 - 1 99 mg/dL [facility] Comment on above: ATP III Cholesterol classification is Desirable. Cholesterol in HDL [Mass/Vol] 32 mg/dL Low 40 - 59 mg/dL [facility] Comment on above: ATP III HDL Cholestr [...] [Mass/Vol] 52 mg/dL 0 - 129 mg/dL [facility] Comment on above: ATP III LDL Classifi cation is Optimal. Triglyceride [Mass/Vol] 335 mg/dL High 0 - 150 mg/dL [facility] Comment on above: ATP III Triglyceride s Classification is High. No Panel Informationon 10-06 Interpretation and review of laboratory results Abnormal [facility] Uric Acidon 10-06-2021 Urate [Mass/Vol] 6.4 mg/dL 3.4 - 7.0 mg/dL [facility] XR ELBOW RIGHT (MIN 3 VIEWS) Ordered By: Jun Aguilar on 02-24-2021 NO ACUTE FRACTURES [facility] Phone: EXAMINATION: XR ELBO W RIGHT (MIN 3 VIEWS) CLINICAL HISTORY: Right elbow swelling and pain COMPARISONS: June 14, 2012 FINDINGS: Four views of the right elbow are submitted. No acute fractures. No dislocations. No focal bony abnormalities [facility] Phone: Chris, po Incoming Radiant Results From [email or web address] - 02/24/2021 8:37 PM EDT EXAMINATION: XR ELBOW RIGHT (MIN 3 VIEWS) CLINICAL HISTORY: Right elbow swelling and pain COMPARISONS: June 14, 2012 FINDINGS: Four views of the right elbow are submitted. No acute fractures. No dislocations. No focal bony abnormalities IMPRESSION: NO ACUTE FRACTURES [employer] [facility] Phone: [employer] [facility] Phone: Established Visit (Orthopaed ic Surgery)on 01-27-2021 [...] Oliva, ; Jan 29 2021 6:59AM EST ([employer]) Electronically signed by : Sylvia Campa PA-C; Jan 30 2021 8:00AM EST Normal [facility] Post Op (Orthopaedic Surgery )on 01-11-2021 [...] and pronate well. No pain with resisted tax director maneuver. He is neurovascularly intact throughout. Results/Data [...] Oliva, ; Jan 11 2021 8:05PM EST ([employer] rocky) Electronically signed by : Zak Bunn MD; Jan 13 2021 8:33AM EST Normal [facility] Culture, Surgicalon 01-04-20 21 Culture, Surgical ORDER#: [id number] ORDERED BY: ZAK BUNN SOURCE: Elbow Swab COLLECTED: 01/03/21 12:23 ANTIBIOTICS AT MURALI.: RECEIVED : 01/03/21 13:24 Gram Stain Direct FINAL 01/04/21 14:47 No WBC's, No organisms seen Culture, Anaerobic FINAL 01/06/21 08:56 No Anaerobes Isolated Culture, Surgical FINAL 01/07/21 08:39 No growth 72 hours Normal [facility] Comment on above: Performed By: #### C XSRG #### [facility] [address] [place] [address] EKG 12 LeadOrdered By: Nacho Bunn on 01-03-2021 Atrial Rate 81 BPM [facility] Work Phone: P [place] 46 degrees [facility] Work Phone: P-R Interval 156 ms [facility] Work Phone: Q-T Interval 350 ms [facility] Work Phone: QRS Duration 78 ms [facility] Work Phone: QTc Calculation (Bazett) 406 ms [facility] Work Phone: R [place] -13 degrees [facility] Work Phone: T [place] 136 degrees [employer] Phone: Ventricular Rate 81 BPM [facility] Work Phone: Normal sinus rhythm Left ventricular hypertrophy with repolarization abnormality Inferior infarct , age undetermined Abnormal ECG No previous ECGs available Confirmed by ROBERT MARTINEZ ([id number]) on 01/03/2021 10:52:49 AM [facility] Work Phone: Chris, Chpo Incoming Results From [place] - 01/03/2021 10:52 AM EDT Normal sinus rhythm Left ventricular hypertrophy with repolarization abnormality Inferior infarct , age undetermined Abnormal ECG No previous ECGs available Confirmed by ROBERT MARTINEZ ([id number]) on 01/03/2021 10:52:49 AM [facility] Work Phone: [facility] Work Phone: No Panel Informationon 01-03 Normal [facility] Work Phone: [facility] Work Phone: OPERATIVE REPORTon OPERATIVE REPORT [address] [address] OPERATIVE REPORT PATIENT NAME: TAYLOR ARNDT : 1940 MED REC NO: [id number] ROOM: ACCOUNT NO: [id number] ADMIT DATE: 01/03/2021 PROVIDER: Zak Bunn MD DATE OF PROCEDURE: 01/03/2021 LOCATION: [facility]. 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 OPERATIONS PERFORMED: 1. Open irrigation and debridement of right elbow open wound. 2. Open excision of right elbow olecranon bursa. SURGEON: Zak Bunn MD LIP OF SHANK CUTTER: Radha Campa PA-C was present throughout the entire case. Given the nature of the disease process and the procedure, a skilled assistant professor surgical technology was necessary during the case. The cable splicer assistant was necessary to hold retractors and manipulate the extremity during the procedure. A certified wellness program coordinator was at the back table managing the [...] stable condition. ZAK BUNN MD [email or web address] Doc#: [id number] CC: Normal [facility] Surgical Specimenon 01-04-20 21 Surgical Specimen [facility] [address] [place], [place] [id number] FINAL SURGICAL PATHOLOGY REPORT Patient Name: TAYLOR ARNDT Accession No: [id number] Age Sex: 1940 Location: [facility] Account No: [id number] Collected: 01/03/2021 [facility] Rec No: [id number] Received: 01/03/2021 Attend Phys: ZAK BUNN Completed: 01/04/2021 Perform Phys: ZAK BUNN FINAL DIAGNOSIS: RIGHT ELBOW BURSA: GOUTY BURSITIS MICKY/MICKY CLINICAL INFORMATION: Procedure: Right elbow irrigation and [...] shows needle shaped crystals consistent with gout. Supervisor In [employer] Testing sections of the tissue are submitted in four cassettes. MICKY/MICKY CPT: 96642 X1 Lydia FUNEZ M.D. 01/04/2021 Electronically signed out by Page 1 of 1 Invalid Interpretation Code [facility] Comment on above: Performed By: #### S UR #### [facility] [address] [place] [address] Basic Metabolic Panelon 12-07 GFR >60.0 Normal >60 [facility] Comment on above: Result Comment: >60 mL/min/1.73m2 EGFR, calc. for ages 18 and older using the MDRD formula (not corrected for weight), is valid for stable renal function. Performed By: #### B MP #### [facility] [address] [place] [address] GFR/1.73 sq M.predicted among blacks MDRD (S/P/Bld) [Vol rate/Area] mL/min/{1.73_m2} Normal >60 [facility] Comment on above: Result Comment: >60 mL/min/1.73m2 EGFR, calc. for ages 18 and older using the MDRD formula (not corrected for weight), is valid for stable renal function. Performed By: #### B MP #### [facility] [address] [place] [address] Urea nitrogen [Mass/Vol] 21 mg/dL Normal 8-23 [facility] Comment on above: Performed By: #### B MP #### [facility] [address] [place] [address] Basic Metabolic PanelOrdered By: Zak Bunn on 12-30-2020 Anion gap [Moles/Vol] 14 mmol/L Normal 9-15 [facility] Work Phone: Comment on above: Performed By: #### B MP #### [facility] [address] [place] [address] Calcium [Mass/Vol] 9.4 mg/dL Normal 8.5-9.[address] [facility] [employer] Work Phone: Comment on above: Performed By: #### B MP #### [facility] [address] [place] [address] Chloride [Moles/Vol] 102 mmol/L Normal 95-107 [facility] Work Phone: Comment on above: Performed By: #### B MP #### [facility] [address] [place] [address] CO2 [Moles/Vol] 23 mmol/L Normal 20-31 [facility] Work Phone: Comment on above: Performed By: #### B MP #### [facility] [address] [place] [address] Creatinine [Mass/Vol] 0.97 mg/dL Normal 0.70-1.20 [facility] Work Phone: Comment on above: Performed By: #### B MP #### [facility] [address] [place] [address] Glucose [Mass/Vol] 176 mg/dL Critically high 70-99 [facility] Work Phone: Comment on above: Performed By: #### B MP #### [facility] [address] [place] [address] Potassium [Moles/Vol] 3.4 mmol/L Normal 3.4-4.9 [facility] Phone: Comment on above: Performed By: #### B MP #### [facility] [address] [place] [address] Sodium [Moles/Vol] 139 mmol/L Normal 135-144 [employer] Phone: Comment on above: Performed By: #### B MP #### [facility] [address] [place] [address] GFR >60.0 >60 [employer] Phone: Comment on above: >60 mL/min/1.73m2 EG FR, calc. for ages 18 and older using the MDRD formula (not corrected for weight), is valid for stable renal function. GFR Non- >60.0 >60 [employer] [facility] Phone: Comment on above: >60 mL/min/1.73m2 EG FR, calc. for ages 18 and older using the MDRD formula (not corrected for weight), is valid for stable renal function. Interpretation and review of laboratory results Abnormal [employer] [facility] Phone: Urea nitrogen (BldV) [Mass/Vol] 21 mg/dL 8 - 23 mg/dL [employer] [facility] Phone: [employer] [facility] Phone: CBCOrdered By: Zak Graham i on 12-30-2020 Hematocrit (Bld) [Volume fraction] 45.6 % 42.0 - 52.0 % [employer] Phone: Hemoglobin.gastrointest inal spec 1 Ql (Stl) 15.7 g/dL 14.0 - 18.0 g/dL [employer] Phone: Interpretation and review of laboratory results Abnormal [employer] Phone: MCH (RBC) [Entitic mass] 33.2 pg High 27.0 - 31.3 pg [employer] Phone: MCHC (RBC) [Mass/Vol] 34.4 % 33.0 - 37.0 % [employer] Phone: MCV (RBC) [Entitic vol] 96.4 fL 80.0 - 100.0 fL [employer] Phone: Platelet distribution width (Bld) [Ratio] 14.7 % High 11.5 - 14.5 % [employer] Phone: Platelets (Bld) [#/Vol] 232 10*3/uL 130 - 400 K/uL [employer] Phone: RBC (Bld) [#/Vol] 4.73 10*6/uL [employer] Phone: WBC (Bld) [#/Vol] 8.1 10*3/uL 4.8 - 10.8 K/uL [employer] Phone: [employer] Phone: CBC With Platelet No Differe ntialon 12-30-2020 Erythrocyte distribution width (RBC) [Ratio] 14.7 % Critically high 11.5-14.5 [facility] Comment on above: Performed By: #### C BCND #### [facility] [address] [place] [address] Hematocrit (Bld) [Volume fraction] 45.6 % Normal 42.0-52.0 [facility] Comment on above: Performed By: #### C BCND #### [facility] [address] [place] [address] Hemoglobin (Bld) [Mass/Vol] 15.7 g/dL Normal 14.0-18.0 [facility] Comment on above: Performed By: #### C BCND #### [facility] [address] [place] [address] MCH (RBC) [Entitic mass] 33.2 pg Critically high 27.0-31.3 [facility] Comment on above: Performed By: #### C BCND #### [facility] [address] [place] [address] MCHC 34.4 % Normal 33.0-37.0 [facility] Comment on above: Performed By: #### C BCND #### [facility] [address] [place] [address] MCV (RBC) [Entitic vol] 96.4 fL Normal 80.0-100.0 [facility] Comment on above: Performed By: #### C BCND #### [facility] [address] [place] [address] Platelets (Bld) [#/Vol] 232 10*3/uL Normal 130-400 [facility] Comment on above: Performed By: #### C BCND #### [facility] [address] [place] [address] RBC (Bld) [#/Vol] 4.73 10*6/uL Normal 4.70-6.10 [facility] Comment on above: Performed By: #### C BCND #### [facility] [address] [place] [address] WBC (Bld) [#/Vol] 8.1 10*3/uL Normal 4.8-10.8 [facility] Comment on above: Performed By: #### C BCND #### [facility] [address] [place] [address] Culture, Wound Aerobicon Culture, Wound Aerobic ORDER#: [id number] ORDERED BY: JEANETH LEWIS SOURCE: Wound No site given COLLECTED: 12/30/20 20:05 ANTIBIOTICS AT MURALI.: RECEIVED : 12/30/20 21:00 Gram Stain Direct FINAL 12/31/20 09:29 Rare WBC's No organisms seen Culture, Wound Aerobic FINAL 01/02/21 09:33 Mixed skin adilene Rare growth No further workup Normal [facility] Comment on above: Performed By: #### C XWND #### [facility] [address] [place] [address] Established Visit (Orthopaed ic Surgery)on 12-30-2020 Established [...] Torres, ; Jan 02 2021 10:43AM EST ([employer]) Electronically signed by : Zak Bunn MD; Jan 02 2021 10:51AM EST Normal [facility] No Panel Informationon 12-30 139 {mEq/L} Normal 135-144 [facility] Work Phone: 23 {mEq/L} Normal 20-31 -[place] [facility] Work Phone: 102 {mEq/L} Normal 95-107 -[place] [facility] Work Phone: [phone] 21 mg/dL Normal 8-23 -[place] [facility] Work Phone: {mEq/L} Normal 9-15 -[place] [facility] Work Phone: [phone] 9.4 mg/dL Normal 8.5-9.9 -[facility] Work Phone: >60.0 Normal >60 -[place] [facility] Work Phone: [phone] Comment on above: >60 mL/min/1.73m2 EG FR, calc. for ages 18 and older using theMDRD formula (not corrected for weight), is valid for stablerenal function. 0.97 mg/dL Normal 0.70-1.20 -[place] [facility] Work Phone: [phone] 176 mg/dL above high threshold 70-99 -[place] [facility] Work Phone: [phone] {mEq/L} Normal 3.4-4.9 -[place] [facility] [place] Work Phone: 232 K/uL Normal 130-400 [facility] [place] Work Phone: 14.7 % above high threshold 11.5-14.5 [facility] [place] Work Phone: 34.4 % Normal 33.0-37.0 [facility] [place] Work Phone: 33.2 pg above high threshold 27.0-31.3 [facility] [place] Work Phone: 96.4 fL Normal 80.0-100.0 [facility] [place] Work Phone: 45.6 % Normal 42.0-52.0 [facility] [place] Work Phone: 15.7 g/dL Normal 14.0-18.0 [facility] Work Phone: 4.73 {M/uL} Normal 4.70-6.10 [facility] Work Phone: 8.1 K/uL Normal 4.8-10.8 [facility] Work Phone: Radiologyon 12-30-2020 XR Elbow 3 Views Normal [facility] Work Phone: Basic Metabolic Panelon 08-08 Anion gap [Moles/Vol] 21 mmol/L [facility] Work Phone: Calcium [Mass/Vol] 9.3 mg/dL 8.5 - 9.9 mg/dL [facility] [employer] Work Phone: Chloride [Moles/Vol] 100 mmol/L [facility] [employer] Work Phone: CO2 [Moles/Vol] 21 mmol/L [facility] Work Phone: Creatinine [Mass/Vol] 1.07 mg/dL 0.7 - 1.2 mg/dL [employer] Phone: GFR >60.0 >60 [employer] Phone: Comment on above: >60 mL/min/1.73m2 EG FR, calc. for ages 18 and older using the MDRD formula (not corrected for weight), is valid for stable renal function. GFR Non- >60.0 >60 [employer] Phone: Comment on above: >60 mL/min/1.73m2 EG FR, calc. for ages 18 and older using the MDRD formula (not corrected for weight), is valid for stable renal function. Glucose [Mass/Vol] 88 mg/dL 70 - 99 mg/dL [employer] Phone: Potassium [Moles/Vol] 3.8 mmol/L [employer] Phone: Sodium [Moles/Vol] 142 mmol/L [employer] Phone: Urea nitrogen [Mass/Vol] 17 mg/dL 8 - 23 mg/dL [employer] [facility] [employer] Phone: Lipid Panelon 08-19-2019 Cholesterol [Mass/Vol] 167 mg/dL 0 - 1 99 mg/dL [employer] [facility] [employer] [facility]: Comment on above: ATP III Cholesterol classification is Desirable. Cholesterol in HDL [Mass/Vol] 35 mg/dL Low 40 - 59 mg/dL [employer] Phone: Comment on above: ATP III HDL [...] [Mass/Vol] 57 mg/dL 0 - 129 mg/dL [employer] Phone: Comment on above: ATP III LDL Classifi cation is Optimal. Triglyceride [Mass/Vol] 375 mg/dL High 0 - 150 mg/dL [employer] Phone: Comment on above: ATP III Triglyceride s Classification is High. Otheron 08-19-2019 Interpretation and review of laboratory results Abnormal [employer] Phone: C Bloodon 06-03-2018 C Blood Final Report: No eusebio wth at 5 Days Normal [facility] Comment on above: Performed By: #### 2 [id number] ####VICK Microbiology Automated [address] [place] [address] Auto Diffon 05-29-2018 Basophils Auto #/vol (Bld) 0.1 E3/mcL Normal 0.0-0.2 [facility] Comment on above: Order Comment: Order Added by Discern Expert. Performed By: #### 2 [id number] ####VICK KuzUxnt8529 [place] [address] Basophils/100 WBC Auto (Bld) 1.1 % Normal 0.0-2.0 [facility] Comment on above: Order Comment: Order Added by Discern Expert. Performed By: #### 2 [id number] ####VICK XlwWvyc8492 [place] [address] Eos Absolute 0.1 E3/mcL Normal 0.0-0.7 [facility] Comment on above: Order Comment: Order Added by Discern Expert. Performed By: #### 2 [id number] ####VICK VpnJzoe2538 [place] [address] Eosinophils/100 WBC Auto (Bld) 0.8 % Normal 0.0-11.0 [facility] Comment on above: Order Comment: Order Added by Discern Expert. Performed By: #### 2 [id number] ####VICK VivDqqo7666 [place] [address] Lymphocytes Auto #/vol (Bld) 1.5 E3/mcL Normal 1.2-3.4 [facility] Comment on above: Order Comment: Order Added by Discern Expert. Performed By: #### 2 [id number] ####VICK ArvIqpi3311 [place] [address] Lymphocytes/100 WBC Auto (Bld) 12.2 % Low 20.0-55.0 [facility] Comment on above: Order Comment: Order Added by Discern Expert. Performed By: #### 2 [id number] ####VICK [address] [place] [address] Maries Absolute 1.1 E3/mcL High 0.0-0.7 [facility] Comment on above: Order Comment: Order Added by Discern Expert. Performed By: #### 2 [id number] ####VICK [address] [place] [address] Monocytes/100 WBC Auto (Bld) 9.0 % Normal 0.0-10.0 [facility] Comment on above: Order Comment: Order Added by Discern Expert. Performed By: #### 2 [id number] ####VICK [address] [place] [address] Neutro Absolute 9.5 E3/mcL High 1.4-6.5 [facility] Comment on above: Order Comment: Order Added by Discern Expert. Performed By: #### 2 [id number] ####VICK [address] [place] [address] Neutro Auto 76.9 % High 37.0-75.0 [facility] Comment on above: Order Comment: Order Added by Discern Expert. Performed By: #### 2 [id number] ####VICK McmillanHoiRsbp7653 [place] [address] BMPon 05-29-2018 Anion gap 3 molar conc 13 mmol/L Normal 10-20 [facility] Comment on above: Performed By: #### 2 [id number] ####VICK QddUoai9784 [place] [address] Calcium mass conc 9.1 mg/dL Normal 8.6-10.3 [facility] Comment on above: Performed By: #### 2 [id number] ####VICK YhhMuie3418 [place] [address] Chloride molar conc 104 mmol/L Normal 98-107 [facility] Comment on above: Performed By: #### 2 027703 ####VICKTaiwo McmillanAedJcaq0797 [place] [address] CO2 molar conc 25.0 mmol/L Normal 21.0-32.0 [facility] Comment on above: Performed By: #### 2 [id number] ####VICK VbsHvgg1302 [place] [address] Creatinine mass conc 1.2 mg/dL Normal 0.5-1.3 [facility] Comment on above: Performed By: #### 2 [id number] ####VICK CsnKoys9474 [place] [address] Glucose mass conc 108 mg/dL High 70-99 [facility] Comment on above: Performed By: #### 2 [id number] ####VICK FxbJadb2981 [place] [address] Potassium molar conc 3.9 mmol/L Normal 3.5-5.3 [facility] Comment on above: Performed By: #### 2 077215 ####VICKTaiwo OwensHuhAujm6023 [place] [address] Sodium molar conc 138 mmol/L Normal 136-145 [facility] Comment on above: Performed By: #### 2 153828 ####VICK PqvGezy1763 [place] [address] Urea nitrogen mass conc 25 mg/dL High 6-23 [facility] Comment on above: Performed By: #### 2 037308 ####VICKTaiwo OwensGcxYnhu6121 [place] [address] Urea nitrogen/Creatinine mass ratio 20.8 ratio Normal 5.4-30.0 [facility] Comment on above: Performed By: #### 2 336373 ####VICKTaiwo McmillanLfvOqdz1570 [place] [address] CBC w/ Auto Diffon 8 Erythrocyte distribution width Auto Ratio (RBC) 13.9 % Normal 11.5-14.5 [facility] Comment on above: Performed By: #### 2 [id number] ####VICKTaiwo McmillanDusJyac7658 [place] [address] Hematocrit Auto Volume Fraction (Bld) 50.1 % Normal 42.0-52.0 [facility] Comment on above: Performed By: #### 2 070647 ####VICK Mcmill[address]LpwJksr26[address] [place] 1276005 Hemoglobin mass conc (Bld) 17.1 g/dL Normal 13.5-18.0 [facility] Comment on above: Performed By: #### 2 [id number] ####VICK Mcmill[address]WyuChti23[address] [place] 1276005 MCH Auto Entitic mass (RBC) 33.9 pg High 27.0-31.0 [facility] Comment on above: Performed By: #### 2 850270 ####VICK McmillanWaeVkvl7322 [place] [address] MCHC Auto mass conc (RBC) 34.1 g/dL Normal 33.0-37.0 [facility] Comment on above: Performed By: #### 2 834250 ####VICK [address] [place] [address] MCV Auto Entitic volume (RBC) 99.4 fL Normal 78.0-100.0 [facility] Comment on above: Performed By: #### 2 [id number] ####VICK McmillanWteKzdw5245 [place] [address] Platelet mean volume Auto Entitic volume (Bld) 8.5 fL Normal 7.4-11.0 [facility] Comment on above: Performed By: #### 2 806649 ####VICK McmillanKenVkdj0283 [place] 1276005 Platelets Auto #/vol (Bld) 224 E3/mcL Normal 130-400 [facility] Comment on above: Performed By: #### 2 154189 ####VICK McmillanDfcLrrt8431 [place] 1276005 RBC Auto #/vol (Bld) 5.04 E6/mcL Normal 3.90-6.10 [facility] Comment on above: Performed By: #### 2 038998 ####VICK McmillanOrsUhhb7[address] [place] 1276005 WBC Auto #/vol (Bld) 12.3 E3/mcL High 3.6-11.0 [facility] Comment on above: Performed By: #### 2 394123 ####VICK Mcmill[address]WtbTsex64[address] [place] 1276005 CRPon 05-29-2018 CRP mass conc 7.00 mg/dL High 0.00-1.00 [facility] Comment on above: Performed By: #### 2 [id number] ####VICK PlgUgvh6051 [place] [address] Sed Rate Automatedon 018 Sed Rate Automated 49 mm/hr [facility] Comment on above: Result Comment: AGE- SPECIFIC REFERENCE RANGES FOR SEDIMENTATION RATE AUTOMATED REFERENCE RANGE - MM/HR AGE MEN WOMEN 0-2 0-2 - PUBERTY 3-13 3-13 PUBERTY - 50 YRS 0-15 0-20 > 50 YRS 0-20 0-30 Performed By: #### 1 [id number] ####VICK Hematology Manual [address]jiv[address] [place] [address] XR Elbow 3+ Views Lefton XR Elbow [...] 8:42 pmSigned by: Gabe Lombardo MD Technologist: [facility] eGFRon 05-29-2018 eGFR AA >60 [facility] Comment on above: Order Comment: Order added by Discern Expert. Performed By: #### 1 [id number] ####VICK QbaHlcs9578 [place] [address] GFR/1.73 sq M predicted among non-blacks MDRD vol rate/area (S/P/Bld) mL/min/{1.73_m2} Normal [facility] Comment on above: Order Comment: Order added by Discern Expert. Performed By: #### 1 [id number] ####VICK HmhIcvb1929 [place] [address] OCT MACULA CIRRUS OU (BOTH E YES) [facility] Vital Signs Date Time Vital Sign Value Performing Clinician Facility 03-02-2025 09:06-0400 Body height 162.56 cm Frankie Cr MD Work Phone: [facility] 03-02-2025 09:06-0400 Body mass index (BMI) [Ratio] 36.8 kg/m2 Frankie Cr MD Work Phone: [facility] 03-02-2025 09:06-0400 Body weight 97.52 kg Frankie Cr MD Work Phone: [facility] 02-02-2025 09:40-0400 Body height 162.56 cm Frankie Cr MD Work Phone: [facility] 02-02-2025 09:40-0400 Body mass index (BMI) [Ratio] 36.8 kg/m2 Frankie Cr MD Work Phone: [facility] 02-02-2025 09:40-0400 Body weight 97.29 kg Frankie Cr MD Work Phone: [facility] 10-01-2024 15:17-0400 Body height 162.56 cm [facility] 10-01-2024 15:17-0400 Body mass index (BMI) [Ratio] 37.2 kg/m2 [facility] 10-01-2024 15:17-0400 Body weight 98.42 kg Out [facility] 10-01-2024 15:17-0400 Diastolic blood pressure 73 mm[Hg] Out [facility] 10-01-2024 15:17-0400 Heart rate 91 /min Out [facility] 10-01-2024 15:17-0400 Respiratory rate 16 /min [facility] 10-01-2024 15:17-0400 Systolic blood pressure 135 mm[Hg] [facility] 04-30-2024 09:13-0400 Body height 162.6 cm Deanna Mejias FARM EQUIPMENT ENGINEER Work Phone: [facility] 04-30-2024 09:13-0400 Body mass index (BMI) [Ratio] 36.56 kg/m2 Deanna Mejias FARM EQUIPMENT ENGINEER Work Phone: [facility] 04-30-2024 09:13-0400 Body temperature 97.59 [degF] Deanna Mejias FARM EQUIPMENT ENGINEER Work Phone: [facility] 04-30-2024 09:13-0400 Body weight 96.62 kg Deanna Mejias FARM EQUIPMENT ENGINEER Work Phone: [facility] 04-30-2024 09:13-0400 Diastolic blood pressure 72 mm[Hg] Deanna Mejias FARM EQUIPMENT ENGINEER Work Phone: [facility] 04-30-2024 09:13-0400 Heart rate 60 /min Deanna Mejias FARM EQUIPMENT ENGINEER Work Phone: [facility] 04-30-2024 09:13-0400 SaO2% (BldA) [Mass fraction] 94 % Deanna Mejias FARM EQUIPMENT ENGINEER Work Phone: [facility] 04-30-2024 09:13-0400 Systolic blood pressure 115 mm[Hg] Deanna Mejias FARM EQUIPMENT ENGINEER Work Phone: [facility] 12-10-2022 07:03-0400 Body height 162.56 cm [facility] 12-10-2022 07:03-0400 Body weight 97.97 kg [facility] 12-07-2022 09:27-0400 Body mass index (BMI) [Ratio] 37 kg/m2 Out [facility] 10-22-2022 08:58-0400 Body mass index (BMI) [Ratio] 37 kg/m2 Out [facility] 10-22-2022 08:58-0400 Body weight 97.97 kg Out [facility] 10-22-2022 08:58-0400 Diastolic blood pressure 85 mm[Hg] [facility] 10-22-2022 08:58-0400 Heart rate 64 /min Out [facility] 10-22-2022 08:58-0400 Respiratory rate 18 /min Out [facility] 10-22-2022 08:58-0400 SaO2% (BldA) [Mass fraction] 96 % [facility] 10-22-2022 08:58-0400 Systolic blood pressure 141 mm[Hg] [facility] 03-19-2022 16:02-0400 Body temperature 97.8 [degF] [facility] Work Phone: 03-19-2022 16:02-0400 Diastolic blood pressure 87 mm[Hg] [facility] Work Phone: 03-19-2022 16:02-0400 Heart rate 80 /min [facility] Work Phone: 03-19-2022 16:02-0400 Respiratory rate 16 /min [facility] Work Phone: 03-19-2022 16:02-0400 SaO2% (BldA) [Mass fraction] 98 % [facility] Work Phone: 03-19-2022 16:02-0400 Systolic blood pressure 142 mm[Hg] [facility] Work Phone: 03-19-2022 15:15-0400 Inhaled oxygen flow rate 1 L/min [facility] Work Phone: 03-19-2022 10:00-0400 Body height 162.56 cm [facility] Work Phone: 03-19-2022 10:00-0400 Body mass index (BMI) [Ratio] 34.8 kg/m2 [facility] Work Phone: 03-19-2022 10:00-0400 Body weight 92 kg [facility] Work Phone: 03-09-2022 14:52-0400 Body mass index (BMI) [Ratio] 36.6 kg/m2 [facility] Work Phone: 03-09-2022 14:52-0400 Body weight 96.84 kg [facility] Work Phone: 03-09-2022 14:52-0400 Diastolic blood pressure 70 mm[Hg] [facility] Work Phone: 03-09-2022 14:52-0400 Heart rate 80 /min [facility] Work Phone: 03-09-2022 14:52-0400 Respiratory rate 16 /min [facility] Work Phone: 03-09-2022 14:52-0400 Systolic blood pressure 120 mm[Hg] [facility] Work Phone: 01-31-2022 08:58-0400 Body mass index (BMI) [Ratio] 36.7 kg/m2 [facility] Work Phone: 01-31-2022 08:58-0400 Body temperature 97.6 [degF] [facility] Work Phone: 01-31-2022 08:58-0400 Body weight 97.06 kg [facility] Work Phone: 01-31-2022 08:58-0400 Diastolic blood pressure 85 mm[Hg] [facility] Work Phone: 01-31-2022 08:58-0400 Heart rate 69 /min [facility] Work Phone: 01-31-2022 08:58-0400 Respiratory rate 16 /min [facility] Work Phone: 01-31-2022 08:58-0400 SaO2% (BldA) [Mass fraction] 97 % [facility] Work Phone: 01-31-2022 08:58-0400 Systolic blood pressure 148 mm[Hg] [facility] Work Phone: 02-24-2021 20:10-0400 Body height 162.6 cm Jun Aguilar MD Work Phone: [employer] Work Phone: 02-24-2021 20:10-0400 Body mass index (BMI) [Ratio] 36.9 kg/m2 Jun Aguilar MD Work Phone: [employer] Work Phone: 02-24-2021 20:10-0400 Body temperature 98.1 [degF] Jun Aguilar MD Work Phone: [employer] Work Phone: 02-24-2021 20:10-0400 Body weight 97.52 kg Jun Aguilar MD Work Phone: [employer] Work Phone: 02-24-2021 20:10-0400 Diastolic blood pressure 84 mm[Hg] Jun Aguilar MD Work Phone: [employer] Work Phone: 02-24-2021 20:10-0400 Heart rate 90 /min Jun Aguilar MD Work Phone: [employer] Work Phone: 02-24-2021 20:10-0400 Respiratory rate 16 /min Jun Aguilar MD Work Phone: [employer] Work Phone: 02-24-2021 20:10-0400 SaO2% (BldA) [Mass fraction] 95 % Jun Aguilar MD Work Phone: [employer] Work Phone: 02-24-2021 20:10-0400 Systolic blood pressure 137 mm[Hg] Jun Aguilar MD Work Phone: [employer] Work Phone: 01-03-2021 13:30-0400 Diastolic blood pressure 59 mm[Hg] Zak Bunn MD Work Phone: [employer] Work Phone: 01-03-2021 13:30-0400 Heart rate 56 /min Zak Bunn MD Work Phone: [employer] Work Phone: 01-03-2021 13:30-0400 Respiratory rate 16 /min Zak Bunn MD Work Phone: [employer] Work Phone: 01-03-2021 13:30-0400 SaO2% (BldA) [Mass fraction] 94 % Zak Bunn MD Work Phone: [employer] Work Phone: 01-03-2021 13:30-0400 Systolic blood pressure 118 mm[Hg] Zak Bunn MD Work Phone: [employer] Work Phone: 01-03-2021 13:05-0400 Body temperature 97.59 [degF] Zak Bunn MD Work Phone: [employer] Work Phone: 01-03-2021 09:20-0400 Body height 162.6 cm Zak Bunn MD Work Phone: [employer] Work Phone: 01-03-2021 09:20-0400 Body mass index (BMI) [Ratio] 36.9 kg/m2 Zak Bunn MD Work Phone: [employer] Work Phone: 01-03-2021 09:20-0400 Body weight 97.52 kg Zak Bunn MD Work Phone: [employer] Work Phone: 12-30-2020 13:39-0400 Body height 161.3 cm [employer] Phone: 12-30-2020 13:39-0400 Body mass index (BMI) [Ratio] 37.84 kg/m2 [employer] Work Phone: 12-30-2020 13:39-0400 Body temperature 97.81 [degF] [employer] Work Phone: 12-30-2020 13:39-0400 Body weight 98.43 kg [employer] Work Phone: 12-30-2020 13:39-0400 Diastolic blood pressure 63 mm[Hg] [employer] Work Phone: 12-30-2020 13:39-0400 Heart rate 78 /min [employer] Phone: 12-30-2020 13:39-0400 Respiratory rate 16 /min [employer] Work Phone: 12-30-2020 13:39-0400 SaO2% (BldA) [Mass fraction] 95 % [employer] Work Phone: 12-30-2020 13:39-0400 Systolic blood pressure 128 mm[Hg] [employer] Phone: Encounters Encounter Date Encounter Type Care Provider Facility Start: 03-31-2025 ambulatory Frankie Cr Facility :[facility] Start: 03-02-2025 End: 03-02-[address] Frankie Cr MD -[facility] Work Phone: Start: 03-02-2025 End: 03-02-2025 ambulatory Frankie Cr MD Work Phone: -[facility] Start: 02-24-2025 ambulatory [facility] Facility:[facility] Start: 02-24-2025 Non-patient / Non-visit Dr. Alireza mina MD -[facility] Start: 02-24-2025 End: 02-24-2025 ambulatory Frankie Cr MD Work Phone: -Pulmonary Services/Neurology Start: 02-24-2025 End: 02-24-[address] Frankie Cr MD -Pulmonary Services/Neurology Work Phone: Start: 02-24-2025 End: 02-24-2025 ambulatory [facility] Facility:[facility] Start: 02-02-2025 End: 02-02-[address] Frankie Cr MD -[facility] Work Phone: Start: 02-02-2025 End: 02-02-2025 ambulatory Frankie Cr -[facility] Start: 10-29-2024 End: 10-29-2024 Follow-up encounter Jeaneth Lewis MD Work Phone: [facility] Comment on above: Morbid (severe) obes ity due to excess calories (CMS/HCC); Hyperlipidemia, unspecified (CMS/HCC); Body mass index (BMI) 36.0-36.9, adult Start: 10-29-2024 End: 10-29-2024 ambulatory JEANETH LEWIS Not Available Start: 10-01-2024 End: 10-01-[address] Parminder Perez MD -[facility] Work Phone: Start: 10-01-2024 End: 10-01-2024 ambulatory [facility] Work Phone: Start: 10-01-2024 End: 10-01-2024 ambulatory Parminder Perez Facility:[facility] Start: 04-30-2024 End: 04-30-2024 ambulatory DEANNA MEJIAS Not Available Start: 04-30-2024 End: 04-30-2024 Patient encounter procedure Deanna Mejias NP Work Phone: [facility] Comment on above: Medicare annual well ness visit, subsequent (Primary Dx); Benign essential hypertension ([facility]/HCC); Hyperlipidemia LDL goal <70 ([facility]); Class 2 severe obesity due to excess calories with serious comorbidity and body mass index (BMI) of 36.0 to 36.9 in adult ([facility]/HCC); Atherosclerosis of [place] coronary artery of [place] heart without angina pectoris ([facility]/HCC); Abnormal fasting glucose; Prediabetes; Acute pain of left shoulder; Lower extremity edema Start: 02-08-2024 End: 02-08-2024 ambulatory [facility] Start: 02-08-2024 End: 02-08-2024 Subsequent hospital visit by physician Dorina [facility] Schedule [facility] Comment on above: Arrived Start: 01-27-2024 End: 01-27-2024 ambulatory DEANNA MEJIAS Not Available Start: 05-17-2023 End: 05-17-2023 ambulatory [facility] Start: 12-19-2022 Non-patient / Non-visit Out [facility] Start: 12-19-2022 End: 12-19-2022 ambulatory [place] [facility] Work Phone: Start: 12-19-2022 End: 12-19-2022 Patient encounter procedure Out [facility] Start: 12-10-2022 End: 12-10-2022 Admission to same day surgery center Out [facility]-Physician Practice Consultant/Special Procedures Start: 12-10-2022 End: 12-10-2022 ambulatory [facility] Work Phone: Start: 11-28-2022 Non-patient / Non-visit Out [facility] Start: 11-21-2022 Non-patient / Non-visit Out [facility] Start: 11-21-2022 End: 11-21-2022 Patient encounter procedure Out [facility] Start: 10-22-2022 End: 10-22-2022 Patient encounter procedure Out [facility] Start: 03-19-2022 Non-patient / Non-visit [place] [facility]RE[facility] Start: 03-19-2022 End: 03-19-2022 Admission to same day surgery center [facility] Start: 03-19-2022 End: 03-19-2022 ambulatory [facility] Work Phone: Start: 03-09-2022 Patient encounter status [facility] Start: 03-09-2022 End: 03-09-2022 Admission to same day surgery center [facility] Start: 03-09-2022 End: 03-09-2022 Patient encounter procedure [facility] Start: 02-07-2022 End: 02-07-2022 Patient encounter procedure Krysta Lovett OD Work Phone: Ophthalmology Comment on above: 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 ated macular degeneration, bilateral, advanced atrophic with subfoveal involvement (Primary Dx); Legal blindness, as defined in [place]; Pseudophakia of both eyes Start: 02-07-2022 Telephone encounter Krysta tran OD Work Phone: Ophthalmology Comment on above: Results Start: 01-31-2022 End: 01-31-2022 Patient encounter procedure [facility] Start: 10-06-2021 End: 10-06-2021 Subsequent hospital visit by physician Dorina [facility] Schedule [facility] Comment on above: Arrived Start: 02-24-2021 End: 02-24-2021 Emergency department patient visit Jun Aguilar MD Work Phone: [facility] ED Comment on above: Contusion of right e lbow, initial encounter (Primary Dx) Start: 01-27-2021 Patient encounter procedure Jeaneth Lewis Work Phone: [facility] [place] Work Phone: Start: 01-11-2021 Chart Update Jeaneth Lewis Work Phone: -[facility] [place] Work Phone: Start: 01-04-2021 Chart Update Jeaneth Lewis Work Phone: [facility] [place] Work Phone: Start: 01-03-2021 SURGNONUH, Provider: Zak Bunn, Status: Pen, Time: 10:30 AM Jeaneth Lewis Work Phone: [facility] [place] Work Phone: Start: 01-03-2021 End: 01-03-2021 ambulatory [facility] [place] Start: 01-03-2021 End: 01-03-2021 Subsequent hospital visit by physician Zak Bunn MD Work Phone: [facility] Start: 12-30-2020 End: 01-04-[address] [facility] Start: 12-30-2020 End: 01-03-2021 Subsequent hospital visit by physician Charity Salguero 3 [facility] Pre-Admission Testing Start: 12-30-2020 Patient encounter procedure Jeaneth Lewis Work Phone: [facility] Work Phone: Start: 08-19-2019 End: 08-19-2019 Subsequent hospital visit by physician Dorina [facility] Comment on above: Arrived Start: 05-29-2018 End: 05-29-2018 Emergency department patient visit Ham Soria Facility:[facility] Start: 05-29-2018 Patient encounter procedure Facility:[id number] Procedures Date Procedure Procedure Detail Performing Clinician Start: 04-30-2024 Hemoglobin glycosyla bjorn a1c Deanna Mejias FARM EQUIPMENT ENGINEER Work Phone: Start: 02-08-2024 Comprehensive metabo lic panel Deanna Mejias QA AUTOMATION ARCHITECT - FARM EQUIPMENT ENGINEER Work Phone: Start: 02-08-2024 Lipid panel Deanna Mejias QA AUTOMATION ARCHITECT - FARM EQUIPMENT ENGINEER Work Phone: Start: 11-30-2022 Plain chest X-ray [...] Basic metabolic pane l calcium total Cherry Sanfordman Work Phone: Start: 08-19-2019 Lipid panel Cherry Bensonman Work Phone: Start: 08-19-2019 PSA screening Cherry Swansonman Work Phone: History of placement of stent for coronary artery disease H/O heart artery stent JEANTEH LEWIS Comment on above: X5 History of placement of stent for coronary artery disease H/O heart artery stent Dr. Parminder Perez MD Plan of Treatment Date Care Activity Detail Author Start: 04-30-2025 Medicare Annual Wellness (AWV) Medicare Annual Wellness (AWV) [facility] Start: 10-29-2024 End: 10-29-2024 Patient encounter procedure 10/29/2024 9:00 AM EDT Office Visit [facility] [address] [place] [address] Jeaneth Lewis MD [address] [place] [address] [facility] Start: 06-25-2024 Influenza vaccination Influenza Vacc ine (#1) [facility] Comment on above: Postponed from 03/08 (Patient Refused) Start: 05-17-2024 Lipid panel [facility] Start: 02-06-2024 Influenza vaccination [facility] Start: 07-08-2023 Annual Wellness Visi t (Medicare Advantage) Annual Wellness Visit (Medicare Advantage) [facility] Start: 03-08-2023 COVID-19 Vaccine ( season) COVID-19 Vaccine ( season) [facility] Start: 10-06-2022 Creatinine measurement Creatinine [facility] Start: 10-06-2022 Lipid panel [facility] [facility] Start: 10-06-2022 [facility]assium [facility] Start: 03-19-2022 [facility] discharge [facility] Work Phone: Start: 03-08-2022 Influenza vaccination [facility] [employer] Start: 12-30-2021 Creatinine measurement Creatinine mo [facility] [employer] Work Phone: Start: 12-30-2021 Lipid panel Lipid screen [facility] Work Phone: Start: 12-30-2021 Potassium monitoring Potassium monit [facility] [employer] Work Phone: Start: 07-08-2021 ADVANCE DIRECTIVE DISCUSSION ADVANCE DIRECTIVE DISCUSSION [facility] Start: 03-08-2021 Influenza vaccination Flu vaccine (# 1) [employer] Work Phone: Start: 01-29-2021 COVID-19 Vaccine (3 - Booster for Moderna series) COVID-19 Vaccine (3 - Booster for Moderna series) [employer] Start: 01-11-2021 POV, Provider: Sylvia Campa, Status: Pen, Time: 10:30 AM POV, Provider: Sylvia Campa, Status: Pen, Time: 10:30 AM [facility] Work Phone: Start: 01-03-2021 [facility], Provider: Zak Bunn, Status: Pen, Time: 10:30 AM [facility], Provider: Zak Bunn, Status: Pen, Time: 10:30 AM [facility] DO Work Phone: Start: 09-11-2020 DIABETES SCREEN DIABETES SCREEN [facility] Start: 04-08-2019 Pneumococcal 65+ yea rs Vaccine (2 of 2 - PPSV23 or PCV20) Pneumococcal 65+ years Vaccine (2 of 2 - PPSV23 or PCV20) [facility] Start: 04-08-2019 Pneumococcal 65+ yea rs Vaccine (2 of 2 - PPSV23) Pneumococcal 65+ years Vaccine (2 of 2 - PPSV23) [facility] Start: 03-08-2019 Influenza vaccination Flu vaccine (# 1) [facility] [employer] Work Phone: Start: 12-26-2018 Annual Wellness Visi t (AWV) Annual Wellness Visit (AWV) [facility] Start: 06-03-2018 Pneumococcal Vaccine : 65+ Years (2 of 2 - PPSV23 or PCV20) Pneumococcal Vaccine: 65+ Years (2 of 2 - PPSV23 or PCV20) [facility] Start: 06-03-2018 Pneumococcal Vaccine : 65+ Years (2 of 2 - PPSV23) Pneumococcal Vaccine: 65+ Years (2 of 2 - PPSV23) [facility] Start: 08-14-2016 Shingles Vaccine (2 of 3) Shingles Vaccine (2 of 3) [facility] Start: 2005 Pneumococcal 65+ yea rs Vaccine (1 of 1 - PPSV23) Pneumococcal 65+ years Vaccine (1 of 1 - PPSV23) [facility] [employer] [facility] Phone: Start: 2005 Pneumococcal 65+ yea rs Vaccine (2 of 2 - PPSV23) Pneumococcal 65+ years Vaccine (2 of 2 - PPSV23) [facility] Phone: Start: 2005 PNEUMOCOCCAL: 65+ (1 - PCV) PNEUMOCOCCAL: 65+ (1 - PCV) [facility] Start: 2000 Respiratory Syncytia l Virus (RSV) or age 60 yrs+ (1 - 1-dose 60+ series) Respiratory Syncytial Virus (RSV) or age 60 yrs+ (1 - 1-dose 60+ series) [facility] Start: 1990 Shingles Vaccine (1 of 2) Shingles Vaccine (1 of 2) [facility] Work Phone: Start: 1990 SHINGRIX VACCINE (1 of 2) SHINGRIX VACCINE (1 of 2) [facility] Start: 1959 DTaP/Tdap/Td vaccine (1 - Tdap) DTaP/Tdap/Td vaccine (1 - Tdap) [facility] Start: 1959 Urine microalbumin profile DTAP,TDAP,TD (1 - Tdap) [facility] Start: 1952 Depression Screen Depression Screen [facility] Start: 1951 DTaP/Tdap/Td vaccine (1 - Tdap) DTaP/Tdap/Td vaccine (1 - Tdap) [facility] [employer] Phone: Culture, Surgical [facility] Work Phone: Comment on above: Release Upon Orderin g for 1 Occurrences starting 01/03/2021 Oxygen therapy [[facility] Data Set] Initiate Oxygen Therapy Protocol Respiratory Care Routine Daily until discontinued starting 01/03/2021 [employer] Phone: Comment on above: Daily until disconti nued starting 01/03/2021 Patient referral [facility] Work Phone: Phase I & II - meter ed glucose Phase I & II - metered glucose Point of Care Testing Routine As Needed until discontinued starting 01/03/2021 [employer] Phone: Comment on above: As Needed until disc ontinued starting 01/03/2021 Spirometry panel Incentive deandra metry Respiratory Care Routine Every 2hr while awake until discontinued starting 01/03/2021 [employer] Work Phone: Comment on above: Every 2hr while awak e until discontinued starting 01/03/2021 Surgical Pathology [facility] Work Phone: Comment on above: Release Upon Orderin g for 1 Occurrences starting 01/03/2021 End: 01-03-2021 Surgical Pathology Surgical Pathology Lab Routine Once for 1 Occurrences starting 01/03/2021 until 01/03/2021 [facility] Work Phone: Comment on above: Once for 1 Occurrenc es starting 01/03/2021 until 01/03/2021 [facility] Immunizations Immunization Date Immunization Notes Care Provider Mike govea 12-20-2022 zoster vaccine recombinant Deanna Bieri FARM EQUIPMENT ENGINEER Work Phone: [facility] 04-07-2022 influenza virus vaccine, unspecified formulation Deanna Bieri FARM EQUIPMENT ENGINEER Work Phone: [facility] 10-20-2021 zoster vaccine recombinant Denana Bieri FARM EQUIPMENT ENGINEER Work Phone: [facility] 09-08-2021 influenza, high dose seasonal, preservative-free Deanna Bieri FARM EQUIPMENT ENGINEER Work Phone: [facility] 09-05-2021 influenza virus vaccine, unspecified formulation Deanna Bieri FARM EQUIPMENT ENGINEER Work Phone: [facility] 08-21-2021 Moderna SARS-CoV-2 Vaccination Deanna Bieri FARM EQUIPMENT ENGINEER Work Phone: [facility] 09-01-2020 Moderna COVID-19 Vaccine 100 MCG/0.5ML Intramuscular Suspension [facility] Work Phone: [facility] 07-29-2020 Moderna COVID-19 Vaccine 100 MCG/0.5ML Intramuscular Suspension [facility] Work Phone: [facility] DO Work Phone: 04-07-2020 Fluad Quadrivalent 0 .5 ML Intramuscular Prefilled Syringe [facility] Work Phone: [facility] DO Work Phone: 04-08-2019 influenza, injectabl e, quadrivalent, preservative free [facility] Work Phone: [facility] Work Phone: 04-07-2019 influenza, seasonal, injectable, preservative free Deanna Bieri FARM EQUIPMENT ENGINEER Work Phone: [facility] 04-08-2018 pneumococcal conjuga te vaccine, 13 valent [facility] Work Phone: [facility] DO Work Phone: 04-08-2018 Seasonal trivalent influenza vaccine, adjuvanted, preservative free [facility] Work Phone: [facility] DO Work Phone: 09-04-2016 influenza, seasonal, injectable [facility] Work Phone: [facility] DO Work Phone: 06-19-2016 zoster vaccine, live Deanna Bieri FARM EQUIPMENT ENGINEER Work Phone: [facility] 05-13-2016 influenza virus vaccine, unspecified formulation Deanna Bieri FARM EQUIPMENT ENGINEER Work Phone: [facility] 10-24-2015 pneumococcal conjuga te vaccine, 13 valent [facility] Work Phone: [facility] DO Work Phone: 04-20-2015 influenza, high dose seasonal, preservative-free Deanna Bieri FARM EQUIPMENT ENGINEER Work Phone: [facility] 04-07-2015 influenza virus vaccine, unspecified formulation Deanna Bieri FARM EQUIPMENT ENGINEER Work Phone: [facility] 09-14-2014 pneumococcal conjuga te vaccine, 13 valent Deanna Bieri FARM EQUIPMENT ENGINEER Work Phone: [facility] 03-16-2013 influenza virus vaccine, unspecified formulation Deanna Bieri FARM EQUIPMENT ENGINEER Work Phone: [facility] 03-16-2013 pneumococcal vaccine , unspecified formulation Deanna Bicarolina FARM EQUIPMENT ENGINEER Work Phone: [facility] 04-01-2012 influenza, high dose seasonal, preservative-free Deanna Mejias FARM EQUIPMENT ENGINEER Work Phone: [facility] Payers Date Payer Category Payer Self-pay 2021 Medicare UHC MEDICARE UHC AAR OPTUM CARE HMO [id number] 2021-Present [phone] [address] [address] [place] [address] HMO [id number] 2019 Medicare (Managed Care) [facility] MEDICARE COMPLETE [id number] 2019 Medicare [id number] 2018 Unknown 2014 Medicare BCBS MEDICARE AN THEM MEDIBLUE ESSENTIAL/PLUS xxxxxxxxxxxx 2014-Present [address] [address] [place] [address] xxxxxxxxxxxx [id number] 1940 Unknown [id number] [id number]. 717 1940 Unknown [id number] 2.16.840.1.274673.3.579.2. 356 1940 Unknown [id number] 2.16.840.1.537699.3.579.2. 182 1940 Unknown [id number] 2.16.840.1.899508.3.579.2. 182 1940 Unknown [id number] 2.16.840.1.722876.3.579.2. 185 1940 Unknown [id number] 2.16.840.1.286278.3.579.2. 185 1940 Unknown [id number] 2.16.840.1.887674.3.579.2. 1259 1940 Unknown [id number] 2.16.840.1.035554.3.579.2. 1259 1940 Unknown [id number] 2.16.840.1.689805.3.579.2. 1259 Unknown [id number] Unknown [id number] 2.16.840.1.516269.3.579.2. 462 Unknown [id number] 2.16.840.1.354424.3.579.2. 462 Unknown [id number] 2.16.840.1.616747.3.579.2. 462 Unknown [id number] 2.16.840.1.250403.3.579.2. 462 Unknown [id number] 2.16.840.1.402223.3.579.2. 462 Unknown [id number] 2.16.840.1.428912.3.579.2. 462 Unknown [id number] 2.16.840.1.533079.3.579.2. 462 Social History Date Type Detail Facility [facility] [employer] Phone: Start: 1940 Sex Assigned At Not on file Jan Medical Phone: Start: 12-30-2020 End: 05-16-2023 Tobacco smoking status NHIS Never smoker [employer] Phone: Start: 12-30-2020 End: 04-25-2023 Tobacco use and exposure Never used [employer] Start: 01-28-2022 End: 02-07-2022 Exposure to SARS-CoV-2 (event) Not sure [employer] Start: 02-24-2021 Alcohol intake Lifetime non-d antony (finding) [employer] Phone: Start: 02-24-2021 History SDOH Alcohol Frequency 1 [employer] Phone: Start: 02-07-2022 Alcohol intake Current drinke r of alcohol (finding) [facility] Start: 03-09-2022 End: 12-10-2022 Tobacco smoking status NHIS Unknown if ever smoked [facility] Start: 1940 Sex Assigned At Male W [facility] Start: 04-30-2024 Alcoholic beverage intake Ex-drinker (finding) [facility] Start: 02-24-2021 End: 04-30-2024 History of Social function [employer] Start: 02-24-2021 End: 04-30-2024 Alcohol Use Disorder Identification Test - Consumption [AUDIT-C] [facility] [employer] [facility] How often to you hav e a [...] [facility] Start: 10-06-2024 Sex Male (finding) [facility] Medical Equipment Procedure Code Equipment Code Equipment Origin al Text Equipment Identifier Dates Ymn-Is-D-Kind Implant - [id number] Start: 11-09-2015 Comment on above: Description: g7 acet abular liner Jgg-Sq-M-Kind Implant - [id number] Start: 11-09-2015 Comment on above: Description: g7 osse o Ti acetabular shell Zoi-Ig-R-Kind Implant - [id number] Acetabular Screw 6.5mm X 25 [id number] Start: 11-09-2015 Comment on above: Description: g7 acet abular screw 6.5mm x 25mm Vur-Qp-P-Kind Implant - [id number] Acetabular Screw 6.5mm X 20mm [id number] Start: 11-09-2015 Comment on above: Description: G7 ACET ABULAR SCREW 6.5MM X 20MM- BIOMET Lens Acrysof Iq +20.5 Diopter Natural 0 D Biconvex Acrylic Methacrylate - [id number] Start: 05-03-2016 Lens Acrysof Iq +21 Diopter Natural Stableforce 0 D Biconvex 118.7 - [id number] Start: 05-10-2016 Head G7 40mm Bio lox Delta Femoral Hip - [id number] Start: 11-09-2015 Sleeve G7 -3mm Offset Taper Biolox Delta Option Titanium Centering Type 1 - [id number] Start: 11-09-2015 Stem Taperloc 13 3d 12 Standard Offset Taper Pps 144mm Femoral Type 1 Full - [id number] Start: 11-09-2015 MESH,VENTRALIGHT ST 4x6 FDA Start: 03-19-2022 MESH,VENTRALIGHT ST 4x6 FDA Start: 03-19-2022 MESH,VENTRALIGHT ST 4x6 FDA Start: 03-19-2022 MESH,VENTRALIGHT ST 4x6 FDA Start: 03-19-2022 MESH,VENTRALIGHT ST 4x6 FDA Start: 03-19-2022 MESH,VENTRALIGHT ST 4x6 FDA Start: 03-19-2022 Goals Date Patient Goal Desired Activity /State Mental Status Date Assessment Result Facility 03-19-2022 Cognitive function Appropriate;Drowsy [facility] Work Phone: Clinical Notes 10-27-2019 to 02-24-2025 Note Date & Type Note Facility 02-24-2025 Procedure note [facility] 02-02-2025 Evaluation note Diagnosis Onset Date Resolution Right carpal tunnel syndrome acute February 02, 2025 9:39am Bilateral carpal tunnel syndrome acute March 02 9:05am [facility] Work Phone: 1(436) 345-252407-29-2025 Progress [facility] [facility] [address] [place] [address] OFFICE VISIT Date of Service: 02/02/25 MR#: [id number] Acct: [id number] Name: TAYLOR ARNDT Rep #: [id number] : 1940 Provider: Dr. Jose Cr MD Age/Sex: 84/M Location: [facility] Status: Signed Intake Vital Signs 10/01/24 15:17 [...] BID PRN 07/3102/02/25 History mg tablet vitamins A,C,T-hzfm-blesfu 4,296 1 cap PO DAILY 02/02/25 History mcg-226 mg-90 mg capsule (PreserVision AREDS) Have you fallen in the past year?: No [facility] Medical History Right carpal tunnel syndrome Atherosclerotic heart disease of [place] coronary artery without angina pectoris Old myocardial infarction Pure hypercholesterolemia History of left heart catheterization (LHC) (~2000) Essential hypertension Legally blind Arthritis Gout [...] and the decisions made by me, Dr. Sherice MD 02/02/25 0825. Part of today?s visit was documented by [ ], acting as scribe. TAYLOR ARNDT is a 84 year old M here today for R possible carpal tunnel syndrome. Patient has numbness and tingling into the thumb index and middle finger predominantly on the right side. Much less soon the left side but some numbness into the left middle finger. He has to shake it out. He works asa [employer] for many years as well as grow [...] R possible carpal tunnel syndrome. Clinically as wellas subjectively the patient has right carpal tunnel [...] No Swelling and No Ecchymosis 02/02/25 1001 n MD> Date _ Frankie rC MD Cosigner Signature: Date (if applicable) CC: ~ [facility]07-29-2025 Progress note Author Frankie Cr [facility] Services Note Date/Time February 02, 2025 10:0 1am [facility] [address] [place] [address] OFFICE VISIT Date of Service: 02/02/25 MR#: [id number] Acct: [id number] Name: TAYLOR ARNDT #: [id number] : 1940 Provider: Dr. Jose Cr MD Age/Sex: 84/M Location: [facility] Status: Signed Intake Vital Signs 10/01/24 15:17 [...] BID PRN 07/3102/02/25 History mg tablet vitamins A,C,O-rnnf-ceidzs 4,296 1 cap PO DAILY 02/02/25 History mcg-226 mg-90 mg capsule (PreserVision AREDS) Have you fallen in the past year?: No PFSH Medical History Right carpal tunnel syndrome Atherosclerotic heart disease of [place] coronary artery without angina pectoris Old myocardial infarction Pure hypercholesterolemia History of left heart catheterization (LHC) (~2000) Essential hypertension Legally blind Arthritis Gout [...] Frankie Cr MD 02/02/25 0844. Part of today?s visit was documented by [...] out. 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 [...] mild symptoms as well contralateral side and follow- up after that in the meantime nighttime splinting [...] tolbert MD> Date _ Frankie Cr MD Cosign Signature: Date (if applicable) CC: ~ [facility] Work Phone: 1(339) 952-869804-24-2025 History of Present illness Narrative* Jeaneth Lewis [...] with controlled blood pressurenep documented in this encounterS[facility] [id number] Evaluation note* Diagnosis Onset Date Resolution Status Admit Date Essential hypertension acute [facility] 2024 3:04pm H/O heart artery stent acute [facility] 2024 3:04pm Pure hypercholesterolemia acute October 01, 2024 3:04pm [facility] Work Phone: 1(363) 922-682110-24-2024 History of Present illness Narrative* Deanna Mejias [...] of 36.0 to 36.9 in adult (CMS/HCC) Discussed lifestyle changes to help with weight loss * Deanna Mejias NP - 04/30/2024 11:46 AM EDTAssociated Problem(s): Hyperlipidemia LDL goal <70 (CMS/HCC) Continue statin. Discussed elevated triglycerides; recommend omega-3 supplement * Deanna Mejias NP - 04/30/2024 11:45 AM EDTAssociated Problem(s): Prediabetes A1c today is 6 * Deanna Mejias NP - 04/30/2024 11:45 AM EDTAssociated Problem(s): Benign essential hypertension (CMS/HCC) Blood pressure is well-controlled * Deanna Mejias NP - 04/30/2024 11:44 AM EDTAssociated Problem(s): Atherosclerosis of [place] coronary artery of [place] heart without angina pect alexandre (CMS/HCC) Continue followups as scheduled with Cardiology * [...] Medicine) Jeaneth Lewis MD as PCP - [facility] Deanna Mejias NP as Nurse Practitioner [...] glycated hemoglobin, total docked device Atherosclerosis of [place] coronary artery of [place] heart without angina pectoris ([facility]) Continue followups as scheduled with Cardiology Benign essential hypertension ([facility]) Blood pressure is well-controlled Prediabetes A1c today is 6 Hyperlipidemia LDL goal <70 ([facility]) Continue statin. Discussed elevated triglycerides; recommend omega-3 supplement Class 2 severe obesity due to excess calories with serious comorbidity and body mass index (BMI) of36.0 to 36.9 in adult ([facility]) Discussed lifestyle changes to help with weight [...] Or sooner if needed documented in this encounterSac-Osage [id number] History and physical note Author Dr. Perez [facility] November 29, 2022 9:47am Note Date/Time November 28, 2022 2:21p [facility] Medical Records Department [address] [place] [address] History & Physical Exam 11/28/22 1416 MR#: [id number] Acct: [id number] Name: TAYLOR ARNDT Rep #:[id number] : 1940 82 From: Kamla Trujillo FARM EQUIPMENT ENGINEERRandyC PCP: JEANETH LEWIS Status:PRE [facility] History and Physical Date of Admission: 12/10/22 This is an 82-year-old white male who presents today for a cardiac catheterization. He has a past cardiovascular history which includes underlying CAD, and SC, PCI (details unknown), hyperlipidemia, hypertension, and macular degeneration.? He has previously been followed through [facility]. 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 He had a previous ECG obtained from 02-03-2016.? At that time he had sinus rhythmwith PACs and an inferior SC pattern reported. He had a repeat ECG on 03/29/2022 that demonstrated sinus rhythm with an inferiorMI pattern of indeterminate age cannot be excluded. He had a transthoracic echocardiogram performed on 02-02-2016 through his hospital system through the [facility].? According to the report his left [...] change. He was evaluated by his former enterprise account executive.? According to a preoperative note from 11-01-2015 [...] EMR Allergies See EMR Medications [facility]?(Reviewed 10/22/22 @ 09:07 by Kamla Albarado FARM EQUIPMENT ENGINEER, FARM EQUIPMENT ENGINEER-C) Arthritis Atherosclerotic heart disease of [place] coronary artery without angina pectoris Cardiology follow-up encounter Essential hypertension Gout Heart attack High cholesterol History of left heart catheterization (LHC) (~2000) History of stress test Hypertension Hypertension Injury of head and neck Legally blind Non-smoker Old myocardial infarction Pure hypercholesterolemia Surgical History? H/O heart artery stent History of cardiac catheterization Hx of umbilical hernia repair S/P appendectomy S/P hip replacement Social History?(Reviewed 10/22/22 @ 09:07 by Kamla Albarado FARM EQUIPMENT ENGINEER, FARM EQUIPMENT ENGINEER-C) Smoking Status:? Never smoker alcohol intake:? never [...] Kamla ZAVALETA> Cosigner Signature (if applicable): 11/29/22 0952 <Electronically signed by Parminder Perez MD> CC: MEGHANN Albarado; Dr. Parminder Perez MD; JEANETH LEWIS~ Signed [facility] Work Phone: 1(102) 857-594408-03-2022 NoteHNO ID: [id number] Author: Krysta Lovett OD Service: ? Author Type: NURSE COORDINATOR Type: Progress Notes Filed: 02/07/2022 4:41 PM Note Text: ASSESSMENT/PLAN: 1. 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 Legal blindness, as defined in [place] - ICD9: 369.4, ICD10: H54.8 Patient sees low vision at the [facility] They want him to try a [...] Krysta Lovett, OD February 07, 2022 4:11 [facility]08-03-2022 Miscellaneous Notes* Telephone Encounter - John Yo - 02/07/2022 4:57 PM EDT Spoke with patient and gave below message. Patient understands Call patient OCT shows no leakage Monitor yearly If he finds out name [facility]ogg[facility] leave me a message documented [facility] History of Present illness Narrative* Krysta Lovett, [...] H54.8 Patient sees low vision at the [facility] They want him to try a goggle but he has to stay for a week Asked him to find out the name of the goggles so I can ask Dr. Gatica for info for him 3. Pseudophakia of both eyes - ICD9: V43.1, ICD10: Z96.1 Stable, monitor yearly Return to clinic: 1 year dilated eye exam with OCT Krysta Loevtt, OD I have confirmed and edited as [...] of its relevant compon ents. Krysta Lovett, TAURUS February 07, 2022 4:11 PM documented in this encounterOhio[facility]07-25-2021 History of Present illness NarrativeMrThai Arndt is [...] his followup. He is here today for recheck.-[place] [facility] Work Phone: 1(885) 753-346406-29-2021 Hospital Discharge instructions* Instructions* Zak Bunn MD [...] your doctor 11) call your doctor at [phone] for an appointment (or follow up as [...] have any concerns or questions, please call [facility] surgeon electronic repair troubleshooter. The 24- hour phone is [phone] 13) If you are unable to contact your surgeon, in an emergency situation, go to the nearest hospital 14) Take your antibiotics as prescribed until completion documented in this [facility] Phone: 1(364) 147-943706-29-2021 History of Present illness Narrative* Gaston Li, AKANKSHA - 01/03/2021 1:48 PM EDT Discharge instructions reviewed with pt, verbalized understanding [facility] Phone: 1(702) 183-761006-25-2021 History of Present illness NarrativeMr. Hair is here for his right elbow. He had some drainage on the elbow over the last few days. He has had a history of gout and previous trouble with this elbow as well. He denies any recent trauma. He is right-hand dominant. Here today as a new patient[facility] [facility] Work Phone: [phone]) 286-874006-25-2021 History of Present illness Narrative* Caitlyn Monique RN - 12/30/2020 2:00 PM EDT Pt fully vaccinated. Pt instructed to bring covid vaccine card on dos (written on pre-op instructions) [facility] Phone: [phone]) 401-197704-21-2020 History of Past illness Narrative* Problem Noted [...] of this encounter (statuses as of 02/07/2022) [facility]04[facility] History of Past illness Narrative* Problem Noted [...] of this encounter (statuses as of 02/07/2022) [facility] Diagnosis Contusion of right elbow, initial encounter- Primary documented in this encounter [employer] Work Phone: evaluation note* Diagnosis 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ated macular degeneration, bilateral, advanced atrophic with subfoveal involvement- Primary Legal blindness, as defined in [place] Pseudophakia of both eyes Lens replaced by other means [facility] Diagnosis Onset Date Resolution Status Umbilical hernia acute Atherosclerotic heart diseas e of [place] coronary artery without angina pectoris acute Essential hypertension acute H/O heart artery stent acute Preoperative cardiovascular examination acute Pure hypercholesterolemia ac [facility] Work Phone: Evaluation note* Diagnosis Onset Date Resolution Status Essential hypertension acute H/O heart artery stent acute Pure hypercholesterolemia ac [facility] Work Phone: Evaluation note* Diagnosis Medicare annual wellness visit, subsequent- Primary Atherosclerosis of [place] coronary artery of [place] heart without angina pectoris (CMS/HCC) Benign essential hypertension (CMS/HCC) Essential hypertension, benign Systolic dysfunction Unspecified heart disease Hyperlipidemia LDL goal <70 (CMS/HCC) Other and unspecified hyperlipidemia Macular degeneration (senile) of retina Macular degeneration (senile) of retina, unspecified Visual impairment Unspecified visual loss Benign essential hypertension (CMS/HCC)- Primary Essential hypertension, benign Hyperlipidemia LDL goal <70 (CMS/HCC) Other and unspecified hyperlipidemia Atherosclerosis of [place] coronary artery of [place] heart without angina pectoris (CMS/HCC) Hyperlipidemia LDL goal <100 (CMS/HCC) Other and unspecified hyperlipidemia Essential hypertension (CMS/HCC) Unspecified essential hypertension Class 2 severe obesity due to excess calories with serious comorbidity and body mass index (BMI) of 36.0 to 36.9 in adult ([facility]) Lower extremity edema Edema Medicare annual wellness visit, subsequent- Primary Benign essential hypertension ([facility]) Essential hypertension, benign Hyperlipidemia LDL goal <70 ([facility]) Other and unspecified hyperlipidemia Class 2 severe obesity due to excess calories with serious comorbidity and body mass index (BMI) of 36.0 to 36.9 in adult ([facility]) Atherosclerosis of [place] coronary artery of [place] heart without angina pectoris ([facility]) Abnormal fasting glucose Prediabetes Other abnormal glucose Acute pain of left shoulder Lower extremity edema Edema [facility] Diagnosis Medicare annual wellness visit, subsequent- Primary Atherosclerosis of [place] coronary artery of [place] heart without angina pectoris ([facility]) Benign essential hypertension ([facility]) Essential hypertension, benign Systolic dysfunction Unspecified heart disease Hyperlipidemia LDL goal <70 ([facility]) Other and unspecified hyperlipidemia Macular degeneration (senile) of retina Macular degeneration (senile) of retina, unspecified Visual impairment Unspecified visual loss Benign essential hypertension ([facility])- Primary Essential hypertension, benign Hyperlipidemia LDL goal <70 ([facility]/HCC) Other and unspecified hyperlipidemia Atherosclerosis of [place] coronary artery of [place] heart without angina pectoris ([facility]) Hyperlipidemia LDL goal <100 ([facility]) Other and unspecified hyperlipidemia Essential hypertension ([facility]) Unspecified essential hypertension Class 2 severe obesity due to excess calories with serious comorbidity and body mass index (BMI) of 36.0 to 36.9 in adult ([facility]) Lower extremity edema Edema Medicare annual wellness visit, subsequent- Primary Benign essential hypertension ([facility]) Essential hypertension, benign Hyperlipidemia LDL goal <70 ([facility]) Other and unspecified hyperlipidemia Class 2 severe obesity due to excess calories with serious comorbidity and body mass index (BMI) of 36.0 to 36.9 in adult ([facility]) Atherosclerosis of [place] coronary artery of [place] heart without angina pectoris ([facility]) Abnormal fasting glucose Prediabetes Other abnormal glucose Acute pain of left shoulder Lower extremity edema Edema Morbid (severe) obesity due to excess calories ([facility]) Hyperlipidemia, unspecified ([facility]) Body mass index (BMI) 36.0-36.9, adult documented [facility] Diagnosis Onset Date Resolution Status Admit Date Right carpal tunnel syndrome acute February 02, 2025 9:39am [facility] Work Phone: Hospital Discharge instructions* Attachments The following attachments cannot be sent through Care Everywhere. * Contusion ([place]) [facility] Work [facility]: reason for referral (narrative)No reason for referral information availableWProMedica Bay [facility] Work Phone: Summary Purpose Family History No Family History Records FoundNo Family History Records FoundNo Family History Records FoundNo Family History Records FoundNo Family History Records FoundNo Family History Records FoundNo Family History Records FoundNo Family History Records FoundNo Family History Records Found Advance Directives No Advanced Directives Records FoundDocuments on File Type Date Recorded Patient Supervisor In Circuit Testing Expl anation Advance Directives and Living Will Power of Wind Turbine Electrical Engineer Documents on File Type Date Recorded Patient Supervisor In Circuit Testing Expl anation ACP-Advance Directive ACP-Power of Wind Turbine Electrical Engineer Latest Code Status on File Code Status Date Activated Date Inactivated Comments Full Code 01/03/2021 1:30 PM Documents on File Type Date Recorded Patient Supervisor In Circuit Testing Expl anation ACP-Advance Directive ACP-Power of Wind Turbine Electrical Engineer Latest Code Status on File Code Status Date Activated Date Inactivated Comments Full Code 01/03/2021 1:30 PM 01/03/2021 4:06 PM Documents on File Type Date Recorded Patient Supervisor In Circuit Testing Expl anation Advance Directive(s) 05/10/2016 9:52 AM Advance Directive(s) 05/10/2016 10:00 AM Advance Directive(s) 05/03/2016 7:24 AM Advance Directive Response Recorded Date/ Time Name of Medical Power of Wind Turbine Electrical Engineer SON March 05, 2022 8:58am Living Will Yes March 05 8:58am Power of Wind Turbine Electrical Engineer Yes March 05 022 8:58am Advance Directive Response Recorded Date/ Time Advance Directives No December 10 7:03am Living Will No December 10, 2022 7 :03am Power of Wind Turbine Electrical Engineer No December 10, 2022 7:03am Latest Code Status on File Code Status Date Activated Date Inactivated Comments Full Code 01/03/2021 1:30 PM 01/03/2021 4:06 PM Advance Directive Response Recorded Date/ Time Living Will No Mary 5th, 2023 7 :03am Do you have a Healthcare Power of Wind Turbine Electrical Engineer? No December 10, 2022 7:03am Advance Directives [...] the event of a Fluress shortage, administer Vania-Fluor 1 drop into both eyes as directed [...] Visit Umbilical hernia Atherosclerotic heart disease of [place] coronary artery without angina pectoris Essential hypertension [...] carpal tunnel syndrome February 02, 2025 9:39am Chief Complaint Admit Date RIGHT HAND February 02, 2025 9:39 am BUE; CTS (R>L) February 24, 2025 6: 39am BUE; CTS (R>L) February 24, 2025 8: 40am RIGHT HAND March 02, 2025 9: 05am Reason for Visit Admit Date Right carpal tunnel syndrome February 02, 2025 9:39am Bilateral carpal tunnel syndrome March 02, 2025 9:05am Additional Source Comments (unrecognized sect ion and content) No Status Records FoundNo Status Records FoundNo Status Records FoundNo Status Records FoundNo Status Records FoundNo Status Records FoundNo Status Records FoundNo Status Records FoundNo Status Records Found INFORMATION SOURCE (unrecogn ized section and content) DATE CREATED AUTHOR 06/16/2018 [facility] DATE CREATED AUTHOR AUTHOR'S ORGANIZ ATION 06/16/2018 [facility] DATE CREATED AUTHOR AUTHOR'S ORGANIZ ATION 01/02/2021 [facility] DATE CREATED AUTHOR AUTHOR'S ORGANIZ ATION 01/07/2021 [facility] DATE CREATED AUTHOR AUTHOR'S ORGANIZ ATION 01/30/2021 [employer] DATE CREATED AUTHOR AUTHOR'S ORGANIZ ATION 02/11/2022 [facility] DATE CREATED AUTHOR AUTHOR'S ORGANIZ ATION 02/10/2024 [facility] DATE CREATED AUTHOR AUTHOR'S ORGANIZ ATION 10/30/2024 [facility] DATE CREATED AUTHOR AUTHOR'S ORGANIZ ATION 03/30/2025 [facility] Reason for Visit (unrecogniz ed section and content) Status Reason Specialty Diagnoses / Procedures Referre d By Contact Referred To Contact Diagnoses Septic olecranon bursitis of right elbow RIGHT ELBOW SEPTIC BURSITIS Procedures SC INCIS/DRAIN FOREARM DEEP ABSCESS RIGHT ELBOW IRRIGATION AND DEBRIDEMENT, SUPINE Zak Bunn MD [address] [place] [address] [facility] Reason Comments Elbow Pain Fell onto [...] Bunn MD - Comment: Used as needed T/O-) sodium chloride flush 0.9 % injection 10 [...] Care Teams (unrecognized sec tion and content) Master Barber Relationship Specialty Start Date End Date Jeaneth Lewis MD [address] [place] [address] PCP - General Internal Medicine 12/30/20 Master Barber Relationship Specialty Start Date End Date Jeaneth Lewis MD PCP - General Internal Medicine 05/12/10 Master Barber Relationship Specialty Start Date End Date Jeaneth Lewis MD PCP - General Internal Medicine 05/12/10 Team Status: Active Member Role Status Dates [facility] Primary Care Provider Active Team Status: Inactive Member Role Status Dates [facility] Primary Care Provider, Referring Pr ovider Active Kamla Albarado FARM EQUIPMENT ENGINEER, FARM EQUIPMENT ENGINEER-C Attending Provider Active Team Status: Active Member Role Status Dates Kamla Albarado FARM EQUIPMENT ENGINEER, FARM EQUIPMENT ENGINEER-C Referring Provider, Other Provi rocky Active JEANETHJOSHUA Primary Care Provider Active Dr. Parminder Perez MD Attending Provider Active Team Status: Active Member Role Status Dates JEANETH LEWIS Primary Care Provider Active Dr. Parmnider Perez MD Other Provider Active Kamla Albarado FARM EQUIPMENT ENGINEER, FARM EQUIPMENT ENGINEER-C Attending Provider Active Team Status: Inactive Member Role Status Dates Kamla Albarado FARM EQUIPMENT ENGINEER, FARM EQUIPMENT ENGINEER-C Attending Provider, Referring P rovider Active [facility] Primary Care Provider Active Team Status: Inactive Member Role Status Dates JEANETH LEWIS Primary Care Provider Active Dr. Parminder Perez MD Attending Provider, Referring Pro vider Active Team Status: Active Member Role Status Dates Dr. Parminder Perez MD Attending Provider Active Master Barber Relationship Specialty Start Date End Date Jeaneth Lewis MD [address] [place] [id number] PCP - General Geriatric Medicine 04/24/23 Jeaneth Lewis MD [address] [place] [address] PCP - [facility] 07/08/23 04/06/60 Deanna Mejias NP [address] [place] [address] Nurse Practitioner Family Medicine 04/25/23 Master Barber Relationship Specialty Start Date End Date Jeaneth Lewis MD [address] [place] [address] PCP - General Internal Medicine 12/30/20 Team Status: Inactive Member Role Status Dates [facility] Primary Care Provider Active Start: October 01, 2024 End: October 01, 2024 [facility] Doctor Referring Provider Active Sta rt: October [...] October 01, 2024 End: October 01, 2024 Master Barber Relationship Specialty Start Date End Date Jeaneth Lewis MD [address] [place] [address] PCP - General Geriatric Medicine 04/24/23 Jeaneth Lewis MD [address] [place] [address] PCP - [facility] 07/08/23 04/06/60 Deanna Mejias NP [address] [place] [address] Nurse Practitioner Family Medicine 04/25/23 Team Status: Inactive Member Role/Relationship Status Dates Frankie Cr MD Attending Provider Active St art: February 02, 2025 End: February 02, 2025 Team Status: Active Member Role/Relationship Status Dates [facility] Primary Care Provider Active Team Status: Inactive Member Role/Relationship Status Dates Frankie Cr MD Attending Provider Active St art: February 02, 2025 End: February 02, 2025 Team Status: Active Member Role/Relationship Status Dates Frankie Cr MD Attending Provider Active St art: February 24, 2025 Frankie Cr MD Referring Provider Active St art: February 24, 2025 [facility] Primary Care Provider Active Start: February 24, 2025 Team Status: Active Member Role/Relationship Status Dates Frankie Cr MD Referring Provider Active St art: February 24, 2025 Frankie Cr MD Other Provider Active Start: February 24, 2025 [facility] Primary Care Provider Active Start: February 24, 2025 Dr. Alireza Ellison MD Attending Provider Active S tart: February 24, 2025 Team Status: Inactive Member Role/Relationship Status Dates [facility] Primary Care Provider Active Start: March 02, 2025 End: March 02, 2025 [facility] Referring Provider Active Start: Au 2024 End: March 02, 2025 Frankie Cr MD Attending Provider Active St art: March 02, 2025 End: March 02, 2025 Team Status: Inactive Member Role/Relationship Status Dates Frankie Cr MD Attending Provider Active St art: February 24, 2025 End: February 24, 2025 Frankie Cr MD Referring Provider Active St art: February 24, 2025 End: February 24, 2025 [facility] Primary Care Provider Active Start: February 24, 2025 End: February 24, 2025 Source Comments (unrecognize d section and content) In the event this informatio n is protected by the Federal Confidentiality of Alcohol and Drug Abuse Patient Records regulations: The Federal rules restrict any use of the information to criminally investigate or prosecute any alcohol or drug abuse patient.[facility] the event this information is protected by the Federal Confidentiality of Alcohol and Drug Abuse Patient Records regulations: The Federal rules restrict any use of the information to criminally investigate or prosecute any alcohol or drug abuse patient.[facility] Goals (unrecognized section and content) Goals may [...] BE BASED ON THE PRIMARY CLINICAL RECORDS. [facility] [employer] [facility]. provides no warranty or guarantee of the accuracy or completeness of information in this document.
[2025-03-31] MEDS: Lactated Ringers 1,000 ML 15 ML IV (06:56)
--- NOTE | 2025-03-31 07:06 | PCM.HP.STD ---
HPI - General HPI Narrative TAYLOR RAMIREZ, is a 84 M who presents for right endoscopic carpal tunnel release. No changes to history and physical exam. Patient wishes to proceed. Right wrist marked confirmed by the patient. Risks alternatives benefits discussed as well as postoperative instructions. The patient understands no further questions or concerns. MR#: [id number] Acct: [id number] Name: TAYLOR RAMIREZ Rep #: [id number] : 1940 Provider: Dr. Frankie Cr MD Age/Sex: 84/M Location: [facility] [email or web address] Status: Signed with Addenda ADDENDUM by Dr. Frankie Cr MD on 03/02/25 at 0920 Assessment and Plan Assessment and Plan (1) Bilateral carpal tunnel syndrome: Status: Acute Plan: Change left to RIGHT 03/02/25919 <Electronically signed by Frankie Cr MD> Date Frankie Cr MD cc: ~* Signed Intake Vital Signs 02/02/2509:40 03/02/2509:06 Height 5 ft 4 in 5 ft 4 in Weight: 214 lb 8 oz 215 lb BMI 36.8 36.8 Intake Visit Reasons: RIGHT HAND Chief Complaint: Right hand EMG review Accompanied by: Is patient in pain?: No Allergies No Known Allergies Allergy (Unverified 03/02/25 09:08) Medications ?Medication ?Instructions ?Recorded ?Confirmed ?Type aspirin 81 mg tablet,delayed 81 mg PO DAILY 01/31/22 03/02/25 History release (Adult Aspirin Regimen) atorvastatin 20 mg tablet 20 mg PO DAILY 01/31/22 03/02/25 History lisinopril 10 mg tablet 10 mg PO DAILY 01/31/22 03/02/25 History allopurinol 100 mg tablet 100 mg PO DAILY PRN 01/06/24 03/02/25 History probenecid 500 mg-colchicine 0.5 1 tab PO BID PRN 01/06/24 03/02/25 History mg tablet vitamins A,C,Y-simu-zxlafn 4,296 1 cap PO DAILY 01/06/24 03/02/25 History mcg-226 mg-90 mg capsule (PreserVision AREDS) Have you fallen in the past year?: Yes PFSH Medical History Bilateral carpal tunnel syndrome Right carpal tunnel syndrome Atherosclerotic heart disease of [place] coronary artery without angina pectoris Old myocardial infarction Pure hypercholesterolemia History of left heart catheterization (LH) (~2000) Essential hypertension Legally blind Arthritis Gout High cholesterol Injury of head and neck Non-smoker History of stress test Cardiology follow-up encounter Hypertension Heart attack Hypertension Surgical History Hx of umbilical hernia repair History of cardiac catheterization H/O heart artery stent S/P appendectomy S/P hip replacement Social History Smoking Status: Never smoker alcohol intake: never substance use type: does not use caffeine: Yes Type: coffee Number of servings: 2 and tea HPI RIGHT HAND Details: This documentation accurately reflects the service provided and the decisions made by me, Dr. Frankie Cr MD 03/02/25 0809. Part of today?s visit was documented by [ ], acting as scribe. TAYLOR RAMIREZ is a 84 year old M here today for FU bilat NCS for CTS. Supplemental Info [facility]Neurology [address] [place] [address] MR#: [id number] Acct: [id number] Name: TAYLOR RAMIREZ Rep #: [id number] : 1940 84 From: Alireza Ellison MD Referring Dr: Frankie Cr MD Status: REG CLI Location: PSN Date: 02/24/25 Sex: M C NCS and/or EMG Patient Report Ordering Doctor: Frankie Cr DATE OF SERVICE: 02/24/25 Taylor presents with complaints of numbness and tingling in both hands. Electrodiagnostic findings: Right median motor nerve demonstrates significantly prolonged distal latency with reduced amplitude. Left median motor nerve demonstrates prolonged distal latency with reduced amplitude and reduced conduction velocity. Right median and right ulnar F waves within normal limits. Borderline prolonged left median F?wave. Ulnar motor response within normal limits bilaterally. Absent right median sensory latency at the wrist. Prolonged left median sensory response. Absent right median palmar response. Needle EMG testing was tested in the upper limbs. All muscles tested showed no evidence of denervation with normal motor unit action potentials. Electrodiagnostic impression: This is an abnormal study of the upper limbs. 1. Electrodiagnostic findings suggestive of bilateral median mononeuropathy. This is consistent with a severe right carpal tunnel syndrome and a moderate to severe left carpal tunnel syndrome. Coding Level of Care Code Off vis,est,level 4 Diagnoses Bilateral carpal tunnel syndrome G56.03 Assessment and Plan Assessment and Plan (1) Bilateral carpal tunnel syndrome: Status: Acute Plan: 84 M with bilateral CTS. Electrodiagnostic findings suggestive of bilateral median mononeuropathy. This is consistent with a severe right carpal tunnel syndrome and a moderate to severe left carpal tunnel syndrome. Explained the pros and cons risks and benefits of continued nonoperative management versus surgery as well as the differences between open and endoscopic carpal tunnel release. Given the severity of the problem as well as the patient's advanced age this may be more unreliable with surgery. In addition he has a heart history that can increase the risk of complications. We will get a clearance and the patient wants to go ahead with right endoscopic carpal tunnel release. Carpal Tunnel Syndrome (CTS) occurs when the median nerve, which runs through the wrist, becomes compressed. Treatment options vary based on the severity of the condition: Non-Surgical Treatments: Wrist Splinting: Wearing a splint at night to keep the wrist in a neutral position. Activity Modification: Avoiding repetitive wrist movements or adjusting work habits. Physical Therapy: Exercises to improve wrist and hand function. Medications: Anti-inflammatory drugs (NSAIDs) or corticosteroid injections to reduce swelling and pain. Surgical Treatment: Carpal Tunnel Release Surgery: A procedure where the ligament pressing on the median nerve is cut to relieve pressure. This is considered when non-surgical treatments are ineffective. Options are min-open or endoscopic. Clinical Quality Measures Falls Risk Screening/Assistive Devices Have you fallen in the past year?: Yes Ortho Exam General General: Yes no acute distress Neurologic: Yes alert and Yes oriented x3 Psychologic: Yes reasonable and appropriate [facility] Medical History (Updated 03/17/25 @ 12:56 by Imani Quispe) Uses wheelchair Easy bruising Dietary restriction Shortness of breath on exertion History of echocardiogram Bilateral carpal tunnel syndrome Right carpal tunnel syndrome Atherosclerotic heart disease of [place] coronary artery without angina pectoris Old myocardial infarction Pure hypercholesterolemia History of left heart catheterization (LHC) (~2000) Essential hypertension Legally blind Arthritis Gout High cholesterol Injury of head and neck Non-smoker History of stress test Cardiology follow-up encounter Hypertension Heart attack Hypertension Home Medications ?Medication ?Instructions ?Recorded ?Last Taken ?Type aspirin 81 mg tablet,delayed 81 mg PO DAILY 01/31/22 03/30/25 History release (Adult Aspirin Regimen) atorvastatin 20 mg tablet 20 mg PO QHS 01/31/22 03/30/25 History lisinopril 10 mg tablet 10 mg PO DAILY 01/31/22 03/30/25 History allopurinol 100 mg tablet 100 mg PO DAILY PRN GOUT 01/06/24 03/30/25 History vitamins A,C,J-xwvy-xvzfpg 4,296 1 cap PO DAILY 01/06/24 03/30/25 History mcg-226 mg-90 mg capsule (PreserVision AREDS) Allergy/AdvReac Type Severity Reaction Status Date / Time No Known Allergies Allergy Verified 03/31/25 06:21 Surgical History (Updated 03/17/25 @ 12:56 by Imani Quispe) History of cardiac catheterization Hx of umbilical hernia repair History of cardiac catheterization H/O heart artery stent S/P appendectomy S/P hip replacement Social History Smoking Status: Never smoker alcohol intake: never substance use type: does not use caffeine: Yes Type: coffee Number of servings: 2 and tea Vital Signs Vital Signs Vital Signs: 03/31/25 06:27 03/31/25 06:27 Temperature 97.8 F Temperature Source Temporal Pulse Rate 67 Respiratory Rate 18 Respiratory Pattern Normal Blood Pressure 109/62 Blood Pressure Mean 77 Blood Pressure Source Monitor Blood Pressure Position Semi-Fowlers Blood Pressure Location Left Arm Pulse Ox 94 Oxygen Delivery Method Room Air Weight Weight: 207 lb 3.752 oz Body Mass Index (BMI) 35.5
--- NOTE | 2025-03-31 07:07 | PRE.ANES_ITS ---
ASA Classification* ASA Classification ASA Classification: 2 Assessment & Plan Anesthesia* Anesthesia Assessment Anesthesia Assessment: Discussed sedation and/or anesthesia options, risks, benefits, and alternatives with patient/parents/legal guardian/POA. Questions invited. The patient/parents/legal guardian/POA seems to understand and agrees to proceed with anesthesia plan. Reviewed the physical assessment, medical history, allergy history and patient home medications list prior to surgery/procedure/anesthetic and documented any changes. Performed airway and anesthesia risk assessments. Anesthesia Type Anesthesia Type: General and MAC History Source History Obtained from:: Patient and Chart Anesthesia Focused Assessment* Temperature: 97.8 F Pulse Rate: 67 Blood Pressure: 109/62 Respiratory Rate: 18 Pulse Ox: 94 Oxygen Delivery Method: Room Air Airway Assessment Mouth opens: >3 cm Mallampati Score: II Teeth Condition: Missing Neck Range of motion (ROM): Limited ROM Labs Anesthesia Preop lab: CBC WBC, (4.4-11.0) 11.4 K/mm3 H 10/01/24, 15:57 RBC, (4.6-6.2) 5.00 M/mm3 10/01/24, 15:57 Hgb, (13.0-16.5) 16.7 g/dL H 10/01/24, 15:57 Hct, (40-54) 47.1 % 10/01/24, 15:57 Plt Count, (150-450) 243 K/mm3 10/01/24, 15:57 CHEMISTRY Potassium, (3.3-5.1) 3.6 mmol/L 10/01/24, 15:57 Sodium, (133-145) 143 mmol/L 10/01/24, 15:57 BUN, (4-19) 16 mg/dL 10/01/24, 15:57 Creatinine, (0.70-1.20) 1.25 mg/dL H 10/01/24, 15:57 Glucose, (70-99) 98 mg/dL 10/01/24, 15:57 COAG Pre-Assessment Diagnosis/Proposed Procedure Planned Operative Procedure(s): RIGHT ENDOSCOPIC CARPAL TUNNEL RELEASE Anesthesia History Anesthesia History - business information analyst: Anesthesia History - business information analyst Hx Hospitalization No 03/17/25 12:49 Any Problems With Anesthesia No 03/17/25 12:49 Cholinesterase deficiency No 03/17/25 12:49 You/Your Family Experience No 03/17/25 12:49 fever (hyperthermia) with Relationship Recent Exposure to Contagious No 03/31/25 06:27 Disease Does patient have nerve No 03/17/25 12:49 stimulator Patient instructed to have device shut off --Does patient have Pacemaker No 03/31/25 06:27 or ICD? When Was Last Pacemaker Check QUESTION #4 FULL TEXT: You/Your Family Experience fever (hyperthermia) with Anesthesia Last Oral Intake Last Oral intake: Last Oral Intake NPO since 19:00 03/31/25 06:27 Meds taken in AM with sips of No 03/31/25 06:27 water? Meds patient instructed to take am of surgery PONV PONV - business information analyst: PONV - business information analyst Female No 03/17/25 12:49 HX of Motion Sickness No 03/17/25 12:49 HX of N/V After Surgery No 03/17/25 12:49 Non-Smoker Yes 03/17/25 12:49 Duration of Surgery greater No 03/17/25 12:49 than 60 minutes Number of Risk Factors 1 03/17/25 12:49 PONV Score Low Risk 03/17/25 12:49 Height & Weight Height & Weight: Anesthesia: Height & Weight Height 5 ft 4 in 03/31/25 06:27 Weight: 94 kg 03/31/25 06:27 Body Mass Index (BMI) 35.5 03/31/25 06:27 Respiratory Assessment Respiratory Assessment - business information analyst: Respiratory Tract Infection Hx - business information analyst Hx Respiratory Tract Infection No 03/17/25 12:49 STOP Sleep Apnea STOP Sleep Apnea - business information analyst: STOP Sleep Apnea - business information analyst Hx Hypertension Yes: CONTROLLED WITH MED 03/17/25 12:49 Hx Sleep Apnea No 03/17/25 12:49 CPAP No 03/19/22 13:07 BIPAP Do you snore loudly (louder No 03/17/25 12:49 than talking or can be heard Do you often feel tired/ No 03/17/25 12:49 fatigued/ sleepy during daytime? Has anyone observed you stop No 03/17/25 12:49 breathing during sleep? STOP Results Negative 03/17/25 12:49 QUESTION #5 FULL TEXT : Do you snore loudly (louder than talking or can be heard through closed doors)? Tobacco Use History Tobacco Use History - business information analyst: Tobacco Use History - business information analyst Tobacco Use Smoking Status Never smoker 03/17/25 12:49 Hx Tobacco Use No 03/17/25 12:49 Years Smoking Packs Smoked per Day Smoking Cessation Date was within the last 15 years Hx Smoking Cessation Date Hx Smoking Cessation Counseling Hematologic Medial History Hematologic Hx - business information analyst: Hematologic Medical Hx - rn clinical documentation Hx of Blood Transfusion No 03/17/25 12:49 Hx of Transfusion in last 3 No 03/17/25 12:49 Months Date of Last Transfusion (if within last 3 months) Ever experience any problems No 03/17/25 12:49 with transfusion(s)? Specify any problems Hx of Preganancy in last 3 N/A 03/17/25 12:49 Months Nurse Filling Out Transfusion DSCHRIBER 03/17/25 12:49 & Questions: Date: 03/17/25 03/17/25 12:49 Time: 12:50 03/17/25 12:49 Patient unable to answer at this time (ie. confused, unrespo /Reproduction History /Reproductive History - business information analyst: /Reproductive Hx- business information analyst Hx Now No 03/17/25 12:49 Gestational Age (in weeks): EDC: Hx Hx Para Hx Section SAB No 03/17/25 12:49 Active Medications Active Medications: Current Medications Generic Name Dose Route Start Last Admin Trade Name Freq PRN Reason Stop Dose Admin Cefazolin Sodium 2 gm/ Sodium 110 mls @ 200 mls/hr 03/31/25 07:30 Chloride IV 03/31/25 08:02 INTRAOP ONE Lactated Ringer's 1,000 mls @ 15 mls/hr 03/31/25 06:15 03/31/25 06:56 IV 15 mls/hr .Q48H ASHLEY Administration PFSH Medical History Uses wheelchair Easy bruising Dietary restriction Shortness of breath on exertion History of echocardiogram Bilateral carpal tunnel syndrome Right carpal tunnel syndrome Atherosclerotic heart disease of [place] coronary artery without angina pectoris Old myocardial infarction Pure hypercholesterolemia History of left heart catheterization (LHC) (~2000) Essential hypertension Legally blind Arthritis Gout High cholesterol Injury of head and neck Non-smoker History of stress test Cardiology follow-up encounter Hypertension Heart attack Hypertension Home Medications ?Medication ?Instructions ?Recorded ?Last Taken ?Type aspirin 81 mg tablet,delayed 81 mg PO DAILY 01/31/22 0 03/30/25 History release (Adult Aspirin Regimen) atorvastatin 20 mg tablet 20 mg PO QHS 01/31/22 History lisinopril 10 mg tablet 10 mg PO DAILY 01/31/2203/09 History allopurinol 100 mg tablet 100 mg PO DAILY PRN GOUT 07/3103/30/25 History vitamins A,C,L-eaqm-xzfeso 4,296 1 cap PO DAILY 03/30/25 History mcg-226 mg-90 mg capsule (PreserVision AREDS) Allergy/AdvReac Type Severity Reaction Status Date / Time No Known Allergies Allergy Verified 03/31/25 06:21 Surgical History History of cardiac catheterization Hx of umbilical hernia repair History of cardiac catheterization H/O heart artery stent S/P appendectomy S/P hip replacement Social History Smoking Status: Never smoker alcohol intake: never substance use type: does not use caffeine: Yes Type: coffee Number of servings: 2 and tea Review of Systems (Anesthesia) ROS Narrative System reviewed and no additional complaints, except as documented.
[2025-03-31] MEDS: Cefazolin 1 GM/5 ML Vial 2 GM IV (07:25)
[2025-03-31] MEDS: Lidocaine 1% (5 ml sdv) 5 ML Vial 8 ML IV (07:31)
--- NOTE | 2025-03-31 07:58 | PCM.OPRPT ---
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 Placed upon on the table. 2g iv ancef before the start of the case. MAC induced by the anesthetic team. Patient placed supine on the table all bony prominences padded. SCDs on the legs. Hand table used right side. Tourniquet applied properly padded to the upper extremity. Upper extremity prepped and draped in the usual sterile fashion with chlorhexidine-based prep solution allowing over 3 minutes drying time prior to draping. Preoperative timeout performed to confirm the site patient and the surgery. Began by elevating the limb and inflated the tourniquet to 250 mmHg. I used the [employer] center line endoscopic carpal tunnel kit technique. 5cc 0.25% bupivicaine for local anesthesia. I made a transverse 2 cm incision in line with the? transverse wrist crease.? This was in line with the fourth digit.? I carried the dissection down through skin and subcutaneous tissue achieved meticulous hemostasis. Just ulnar to palmaris tendon.? I incised the antebrachial fascia.? I passed sequential dilators into the carpal tunnel along the radial border of the Guyon's canal aiming for the fourth digit with the wrist in extension.? I used a synovial elevator to identify the transverse fibers of the transverse carpal tunnel ligament.? Passed the scope into the carpal tunnel. Once I had identified the full proximal and distal extent of the ligament I fully released the ligament under direct visualization by deploying the blade and slowly withdrawing the scope made sequential passes until I no longer felt tension as well as the entire extent of the ligament was released under direct visualization.? Sounded the tunnel with conde tenotomy scissors, complete release, no bands. Nerve visualized and protected. Arthroscope light was more visible through the skin. More room for the large dilator. Release the forearm fascia also. Pictures taken and saved. Wounds thoroughly irrigated.? Tourniquet let down prior to end of the case and meticulous hemostasis achieved.? Thorough irrigation.? ? Incisions closed with 3-0 vicryl and 3-0 monocryl, steri strips. ?Then adaptic 4x4 gauze and tape. Patient woken up,? transferred off the operating room table and taken to postanesthetic care unit in stable condition. All sponge needle instrument counts were correct no complications.?Plan for the patient to be discharged home according to day surgery criteria when they are comfortable. Follow-up in the office in 2 days time. Gentle ROM finger and elbow no heavy lifting. Recommend wrist brace 2 weeks. cpt 92175 Surgical Findings: as above Complications Complications: No Admit VTE Documentation VTE Present on Admission: No VTE Mechan Device Prophylaxis: SCD's VTE Pharm Prophylaxis ordered?: No Reason prophylaxis not ordered: Treatment Not Indicated
--- NOTE | 2025-03-31 08:00 | EX.PCM.DISCH ---
Discharge Instructions Diet Discharge Diet: No restrictions Activity Lifting Restrictions: no lifting or repetitive activities, use wrist brace 2 weeks Keep extremity elevated above heart level: Operative Extremity Additional Activity Instructions:: ok to use fingers and elbow Dressing / Incision Call your doctor if your incision/area has: Continuous Slow Oozing, Sudden Increased Bleeding, Increased Pain/ Swelling, Increased Redness, Foul Smelling Discharge and Swelling at the incision site Call your doctor if you observe: Fever of 101 or Higher, Coldness, Increased Pain and Numbness or Tingling Change Dressing in: leave in place till F/U Cleanse incision/area with: Do not get Incision Wet Follow Up Care Please Follow Up With: Frankie Cr MD When: within 2 weeks Test Results: Test results from this visit will be discussed in further detail at your follow-up appointment, if applicable. Discharge Plan Admission Attending Provider: Frankie Cr Primary Care Provider: [facility] Instructions Patient Instructions: Carpal Tunnel Release Surgery Print Language: Telugu Discharge Orders/Prescriptions Prescriptions: No Action atorvastatin 20 mg tablet 20 mg PO QHS lisinopril 10 mg tablet 10 mg PO DAILY aspirin [Adult Aspirin Regimen] 81 mg tablet,delayed release (DR/EC) 81 mg PO DAILY allopurinol 100 mg tablet 100 mg PO DAILY PRN (Reason: GOUT) PreserVision AREDS 4,296 mcg-226 mg-90 mg capsule 1 cap PO DAILY Referrals / Follow Up: Frankie Cr MD [Med Staff - Active Staff, Orthopedics] [place], [place] [Primary Care Provider, None] Disposition Disposition (needs filled in before D/C Order can be placed): Home, Self Care
--- NOTE | 2025-03-31 08:07 | PCM.POST.ANE ---
Anesthesia: Postop Eval I Current Vital Signs Temperature: 97.4 F Pulse Rate: 70 Blood Pressure: 92/50 Respiratory Rate: 16 Pulse Ox: 92 Assessment Airway patent: Yes Spontaneous unlabored respirations: Yes nausea: No Vomiting: No Anesthesia Complication: No Fluid Hydration Crystalloid volume administer (ml): 800 Total IV fluid infused: 800 Progress Note Anesthesia document: Postop Eval 1 completed: Yes
--- NOTE | 2025-03-31 15:49 | POSTOPAN2_ITS ---
Anesthesia Postop Eval I Sum Postop Eval Completion status Anesthesia document: Postop Eval 1 completed: Yes Anesthesia Postop Eval I Summary Anesthesia Postop Eval I Summary: Anesthesia Postop Eval I: Assessment Summary Airway patent Yes 03/31/25 08:07 FLOWER [email or web address].[email or web address] Spontaneous unlabored Yes 03/31/25 08:07 FLOWER [email or web address].TNES respirations Mental status nausea No 03/31/25 08:07 FLOWER [email or web address].TNES Vomiting No 03/31/25 08:07 FLOWER [email or web address].TNES Anesthesia Postop Eval I: Fluid Summary Crystalloid volume administer 800 03/31/25 08:07 FLOWER [email or web address].TNES (ml) Colloids volume administered ( ml) Blood Product volume administered (ml) Total IV fluid infused 800 03/31/25 08:07 FLOWER [email or web address].TNES Anesthesia Postop Eval I: Summary Notes Anesthesia Complication No 03/31/25 08:07 FLOWER [email or web address].TNES Anesthesia Complication Comment: Post-operative progress note Anesthesia: Postop Eval II Evaluation Mental status: Awake and Calm Pain Level: 1 nausea: No Vomiting: No Complications Anesthesia Complication: No
--- NOTE | 2025-03-31 15:49 | PCM.POSTANE2 ---
Anesthesia Postop Eval I Sum Postop Eval Completion status Anesthesia document: Postop Eval 1 completed: Yes Anesthesia Postop Eval I Summary Anesthesia Postop Eval I Summary: Anesthesia Postop Eval I: Assessment Summary Airway patent Yes 03/31/25 08:07 INTELLIGENCE INTERN.TNES Spontaneous unlabored Yes 03/31/25 08:07 INTELLIGENCE INTERN.TNES respirations Mental status nausea No 03/31/25 08:07 INTELLIGENCE INTERN.TNES Vomiting No 03/31/25 08:07 INTELLIGENCE INTERN.TNES Anesthesia Postop Eval I: Fluid Summary Crystalloid volume administer 800 03/31/25 08:07 INTELLIGENCE INTERN.TNES (ml) Colloids volume administered ( ml) Blood Product volume administered (ml) Total IV fluid infused 800 03/31/25 08:07 INTELLIGENCE INTERN.TNES Anesthesia Postop Eval I: Summary Notes Anesthesia Complication No 03/31/25 08:07 INTELLIGENCE INTERN.TNES Anesthesia Complication Comment: Post-operative progress note Anesthesia: Postop Eval II Evaluation Mental status: Awake and Calm Pain Level: 1 nausea: No Vomiting: No Complications Anesthesia Complication: No
== END 2025-03-31 08:53 | disposition home or self-care (01) ==
LOC: SDC 05:59 → AC 06:00
PROVIDERS: Referring Provider Orthopaedic Surgery Sports Medicine; Visit Provider Orthopaedic Surgery Sports Medicine
PROC: (CPT 29848; principal; 2025-03-31 07:15)
DX: G56.03 Carpal tunnel syndrome, bilateral upper limbs (principal); I25.10 Atherosclerotic heart disease of native coronary artery without angina pectoris; Z79.82 Long term (current) use of aspirin; E78.00 Pure hypercholesterolemia, unspecified; I10 Essential (primary) hypertension; Z79.899 Other long term (current) drug therapy
CPT/HCPCS: 29848; 01810